=== PATIENT | male | born 1940 | race Caucasian/White ===

== ENCOUNTER 2016-07-18 11:45 | Emergency (ER) | payer MEDICARE, OTHER | END 2016-07-18 14:53 | disposition home or self-care (01) | DX: J18.9 Pneumonia, unspecified organism (principal); R41.0 Disorientation, unspecified; R40.0 Somnolence; E78.00 Pure hypercholesterolemia, unspecified; I25.2 Old myocardial infarction; Z86.718 Personal history of other venous thrombosis and embolism; Z86.711 Personal history of pulmonary embolism; Z79.82 Long term (current) use of aspirin; Z87.891 Personal history of nicotine dependence; Z86.73 Personal history of transient ischemic attack (TIA), and cerebral infarction without residual deficits | CPT/HCPCS: 36415; 70450; 71020; 80053; 81003; 82140; 83605; 83690; 83735; 83880; 85025; 93005; 93010; 99283; 99284; G0480 ==

== ENCOUNTER 2016-08-06 07:48 | Outpatient (CLI) | payer MEDICARE, OTHER | END 2016-08-06 07:49 | disposition home or self-care (01) | DX: J43.9 Emphysema, unspecified (principal); J84.10 Pulmonary fibrosis, unspecified ==

== ENCOUNTER 2016-12-14 09:32 | Emergency (ER) | payer MEDICARE, OTHER ==
--- NOTE | 2016-12-14 10:16 | ED Physician Documentation ---
History of Present Illness - Stated complaint Stated Complaint: POST OP EYE SURGERY - Chief complaint Chief Complaint: General - History obtained from History obtained from: Patient, Family - History of Present Illness Timing: Prior to arrival - Additonal information Additional information: This patient is a pleasant elderly male with a history of dementia and also history of a benign brain tumor who presents with a complaint of mild headache following a recent injury several days ago where he is walking with a sickle nearly fell. He is unable to write himself because of the implement in his hands and subsequently hit his face against a rock. There is no loss of consciousness he has no neck, chest, or abdominal pain. He also had an episode yesterday where he was seen to have shaking. The shaking was short-lived and was not associated with any postictal period. He was awake during it which probably rules outA seizure. The patient is accompanied by family who is a little bit more concerned and the patient and wants an evaluation done. He is also status post blepharoplasty in the past and has no problems with his previous procedure. Review of systems: For complete review of systems see history of present illness otherwise all other systems have been reviewed and are negative Review of Systems Ten Systems: 10 systems reviewed and negative Constitutional: reports: Chills. denies: Fever PD PAST MEDICAL HISTORY - Past Medical History Past Medical History: Yes Cardiovascular: High cholesterol, Deep vein thrombosis, Pulmonary embolism, [place] Respiratory: None Neuro: CVA, Seizure disorder Endocrine/Autoimmune: None - Past Surgical History Past Surgical History: Yes General: Colonoscopy Ortho: Knee replacement Cardiovascular: Coronary stent, AAA Neuro: COLOR MAKER shunt - Present Medications Home Medications: Ambulatory Orders Medication Instructions Recorded Confirmed Aspirin 325 mg PO DAILY 08/20/15 07/18/16 Atenolol 50 mg PO DAILY 08/20/15 07/18/16 Fluticasone/Salmeterol [Advair 2 puffs INH DAILY 08/20/15 07/18/16 100-50 Diskus] Levothyroxine [Synthroid] 75 mcg PO DAILY 08/20/15 07/18/16 Loratadine [Claritin] 10 mg PO DAILY 08/20/15 07/18/16 Simvastatin 20 mg PO DAILY 08/20/15 07/18/16 levETIRAcetam [Keppra] 1,000 mg PO BID 08/20/15 07/18/16 Albuterol Sulfate [Proair Hfa 2 puffs IH QID #1 hfa.aer.ad 07/18/16 Inhaler] Azithromycin [Zithromax] 250 mg PO DAILY #6 tablet 07/18/16 Dexamethasone [Decadron] 4 mg PO DAILY #5 tablet 07/18/16 Nitroglycerin [Nitrostat] 0.4 mg [id number] TITR PRN 07/18/16 07/18/16 - Allergies Allergies/Adverse Reactions: Allergies Allergy/AdvReac Type Severity Reaction Status Date / Time carbamazepine AdvReac Unknown Verified 07/18/16 11:51 iodine AdvReac Unknown Verified 07/18/16 11:51 shellfish derived AdvReac Unknown Verified 07/18/16 11:51 - Social History Does the pt smoke?: No Smoking Status: Former smoker Does the pt drink ETOH?: No Does the pt have substance abuse?: No - Immunizations Immunizations are current?: Yes PD ED PE NORMAL - Vitals Vital signs reviewed: Yes - General General: Alert and oriented X 3, No acute distress - HEENT HEENT: PERRL - Neck Neck: Supple, no meningeal sign - Cardiac Cardiac: RRR, No murmur - Respiratory Respiratory: Clear bilaterally - Abdomen Abdomen: Normal bowel sounds, Soft, Non tender, Non distended - Derm Derm: Warm and dry - Extremities Extremities: No deformity - Neuro Neuro: Alert and oriented X 3 - Psych Psych: Normal mood, Normal affect Results - Vitals Vitals: Vital Signs - 24 hr 12/14/16 09:47 Temperature 36.8 C Heart Rate 68 Respiratory 17 Rate Blood Pressure 142/91 H O2 Saturation 96 Oxygen O2 Source Room air - Labs Labs: Laboratory Tests 12/14/16 10:10 Urine Color YELLOW Urine Clarity CLEAR Urine pH 6.0 Ur Specific Mccamey 1.015 Urine Protein NEGATIVE Urine Glucose (UA) NEGATIVE Urine Ketones NEGATIVE Urine Occult Blood NEGATIVE Urine Nitrite NEGATIVE Urine Bilirubin NEGATIVE Urine Urobilinogen 0.2 (NORMAL) Ur Leukocyte Esterase NEGATIVE Ur Microscopic Review NOT INDICATED Urine Culture Comments NOT INDICATED PD MEDICAL DECISION MAKING - ED course ED course: This patient is a 76-year-old man who presents with a concern for a closed head injury which happened a couple days ago. He had an episode of shaking yesterday and I guess family was concerned given the fact that he had a closed head injury recently where the patient really has no complaints here and I do not see any evidence of any physical trauma on examination. His neck is supple nontender he had some shoulder pain but on examination he demonstrates normal range of motion of his shoulders palpation of his entire body is unremarkable. He also napHad an episode of shaking yesterday and on examination I see no evidence of any infection nor do I hear any concerns for infection clinically however I did decide to do urine to make sure he does not have a urinary tract infection. The results of the CT scan of his head are unremarkable and the patient's urine is negative for infection at this point he continues to look well and I think he is able to be discharged home in improved condition.I see no evidence of any infection nor do I hear any concerns for infection clinically however I did decide to do urine to make sure he does not have a urinary tract infection. The results of the CT scan of his head are unremarkable and the patient's urine is negative for infection at this point he continues to look well and I think he is able to be discharged home in improved condition. Disposition to home Clinical impression: 1. Close head injury mild 2. Shaking without evidence of infection clinically or by testingHad an episode of shaking yesterday and on examination Disposition to home Clinical impression: 1. Close head injury mild 2. Shaking without evidence of infection clinically or by testing
[2016-12-14 10:39] LABS: BILIRUBIN,URINE NEGATIVE (NEGATIVE)
[2016-12-14 10:42] LABS: UA CHARGE (STRIP ONLY) YES; UR CULTURE IF IND NOT INDICATED
--- NOTE | 2016-12-14 11:08 | CT Preliminary Report ---
Exam: CT Head W/O IMPRESSION: No acute abnormality or significant change, stable from 07/18/2016. [facility] SITE ID: [id number]
--- NOTE | 2016-12-14 11:10 | CT Report ---
EXAM: CT HEAD EXAM DATE: 12/14/2016 10:47 AM. CLINICAL HISTORY: Fall with closed head injury. COMPARISON: 07/18/2016. TECHNIQUE: Multiaxial CT images were obtained from the foramen magnum to the vertex. IV contrast: Non e. Reformats: Coronal. In accordance with CT protocol optimization, one or more of the following dose reduction techniques w ere utilized for this exam: automated exposure control, adjustment of mA and/or KV based on patient s ize, or use of iterative reconstructive technique. FINDINGS: No CT evidence for acute intracranial hemorrhage, recent displaced fracture or other acute abnormalit y. INTEGRATION DIRECTOR shunt is in place from a right frontal approach, stable ventricular contours, no evidence for acut e shunt malfunction. Again seen are findings of chronic surgery and brain injury anteriorly on the left. No acute sinus or mastoid disease. IMPRESSION: No acute abnormality or significant change, stable from 07/18/2016. [facility] Referring Provider Line: [phone] SITE ID: [id number]
[2016-12-14 12:22] VITALS: BP 142/84
== END 2016-12-14 13:03 | disposition home or self-care (01) ==
LOC: ED 09:32
DX: S09.90XA Unspecified injury of head, initial encounter (principal); W18.30XA Fall on same level, unspecified, initial encounter; W22.09XA Striking against other stationary object, initial encounter; Y93.01 Activity, walking, marching and hiking; R25.8 Other abnormal involuntary movements; F03.90 Unspecified dementia, unspecified severity, without behavioral disturbance, psychotic disturbance, mood disturbance, and anxiety; I25.2 Old myocardial infarction; Z86.718 Personal history of other venous thrombosis and embolism; Z86.711 Personal history of pulmonary embolism; Z96.659 Presence of unspecified artificial knee joint; Z95.5 Presence of coronary angioplasty implant and graft; Z79.82 Long term (current) use of aspirin; Z87.891 Personal history of nicotine dependence; Z98.890 Other specified postprocedural states
CPT/HCPCS: 70450; 81001; 81003; 87086; 99283

== ENCOUNTER 2017-05-14 14:34 | Outpatient (CLI) | payer MEDICARE, OTHER ==
[2017-05-14 12:51] LABS: BASOPHILS % (AUTO) 0.6 %; EOSINOPHILS # (AUTO) 0.1 10^3/uL (0.0-0.7); EOSINOPHILS % (AUTO) 2.7 %; HCT - HEMATOCRIT 36.4 % (42.0-52.0); HGB - HEMOGLOBIN 12.8 g/dL (14.0-18.0); LYMPHOCYTES % (AUTO) 20.6 %; MEAN CORPUSCULAR HEMOGLOBIN 31.8 pg (27.0-31.0); MEAN CORPUSCULAR HGB CONC 35.1 g/dL (32.0-36.0); MEAN CORPUSCULAR VOLUME 90.7 fL (80.0-94.0); MEAN PLATELET VOLUME 7.5 fL (7.4-11.4); MONOCYTES # (AUTO) 0.5 10^3/uL (0.0-1.0); MONOCYTES % (AUTO) 10.8 %; NEUTROPHILS # (AUTO) 3.2 10^3/uL (1.5-6.6); NEUTROPHILS % (AUTO) 65.3 %; NUCLEATED RED BLOOD CELLS AUTO 0.2 /100WBC; RED BLOOD COUNT 4.01 10^6/uL (4.70-6.10); RED CELL DISTRIBUTION WIDTH 14.5 % (12.0-15.0); UNCORRECTED WHITE BLOOD COUNT 4.8 x10^3/uL; WHITE BLOOD COUNT 4.8 x10^3/uL (4.8-10.8)
[2017-05-14 13:12] LABS: ALBUMIN/GLOBULIN RATIO 1.4 (1.0-2.2); BUN - BLOOD UREA NITROGEN 25 mg/dL (6-20); CALCIUM 9.5 mg/dL (8.5-10.3); CARBON DIOXIDE - CO2 27 mmol/L (21-32); CHLORIDE 107 mmol/L (101-111); CHOL/HDL RATIO 4.5 (<5.0); CHOLESTEROL 199 mg/dL; GFR - MDRD 72 (>89); GLUCOSE 88 mg/dL (70-100); HDL CHOLESTEROL 44 mg/dL; LDL/HDL RATIO 3.2 (<3.6); POTASSIUM 3.8 mmol/L (3.5-5.0); SODIUM 140 mmol/L (135-145); TOTAL PROTEIN 7.4 g/dL (6.7-8.2); TRIGLYCERIDES 79 mg/dL; VLDL CHOLESTEROL 16 mg/dL
== END 2017-05-14 14:35 | disposition home or self-care (01) ==
LOC: LAB.WCP 14:34
PROVIDERS: ATTEND Family Medicine
DX: I10 Essential (primary) hypertension (principal); Z12.5 Encounter for screening for malignant neoplasm of prostate; E78.5 Hyperlipidemia, unspecified; E03.9 Hypothyroidism, unspecified
CPT/HCPCS: 36415; 80053; 80061; 84443; 85025; G0103; 84153

== ENCOUNTER 2017-05-30 14:59 | Outpatient (CLI) | payer MEDICARE, OTHER ==
[~2017-05-30 14:59] MED LIST: GADOBUTROL 7.5 MMOL/7.5 ML VIAL ONE
[2017-05-30] MEDS ORDERED: GADOBUTROL 7.5 MMOL/7.5 ML VIAL IVP ONE (16:11)
--- NOTE | 2017-05-31 09:33 | MRI Preliminary Report ---
Exam: MRI BRAIN W/WO Impressions: 1. No acute or subacute ischemic change. 2. Progressive white matter disease since prior MRI brain 07/07/2007, most likely related to chronic small vessel ischemic disease. However, progressive white matter change seen within the left frontal lobe, near the operative site may represent evolution of encephalomalacia related to prior surgery, t herapy. Postcontrast imaging negative, no evidence for recurrent mass. 3. Slight progression of ventricular dilation since 2007, ventricles not overtly dilated. Again seen shunt catheter in place as described, tip at septum pellucidum. Slight progressive ventricular enlarg ement likely due to progressive white matter volume loss, potentially senescent changes. [facility] SITE ID: [id number]
--- NOTE | 2017-05-31 09:36 | MRI Report ---
EXAM: MRI BRAIN WITHOUT AND WITH CONTRAST EXAM DATE: 05/30/2017 04:26 PM. CLINICAL HISTORY: Seizure disorder, meningioma. COMPARISON: Prior CT head 12/14/2016, 07/18/2016; prior MRI brain exams 07/07/2007, 11/25/2006. TECHNIQUE: Multiplanar, multisequence T1-weighted and fluid-sensitive MR sequences of the brain were performed. Sequences optimized for routine evaluation. Other: None. IV Contrast: 6.5 cc Gadavist. Findings: Relevant images are indicated (image number, series number). Compared with MRI brain 07/07/2007: No interval acute or subacute ischemic change in the brain. Gradient echo imaging demonstrates no sig nificant hemosiderin deposition in the brain. Patient status post left convexity craniotomy. There is a right frontal parietal approach shunt catheter tip abuts the septum pellucidum. There is no interv al hemorrhage, new mass, or midline shift. Basal cisterns, bilateral IACs, bilateral Meckel's caves n egative. Orbital contents negative, bilateral globes demonstrate patient status post bilateral lens s urgery. Prominence of the posterior margins of the globes prominently hypointense, but unchanged in t he interval. No evidence for retinal detachment. Normal expected vascular flow voids of the major arteries and veins. Comparison of axial flair imaging demonstrates progressive white matter disease involving the left fr ontal opercula. Maximum transverse dimension of the frontal horns 4.4 cm, previously 4.2 cm. Again se en is surrounding periventricular white matter disease though progressive in the interval. Stable enc ephalomalacia involves anterior left temporal lobe with central enlargement of the left temporal horn . The pituitary, infundibulum are negative. Midbrain demonstrates mild atrophy. Craniocervical juncti on unremarkable. Extraocular muscles, optic nerves, orbital apex and optic chiasm negative. Postcontrast imaging demonstrates no abnormal enhancement of the brain, meninges. There are no suspic ious marrow lesions. Impressions: 1. No acute or subacute ischemic change. 2. Progressive white matter disease since prior MRI brain 07/07/2007, most likely related to chronic small vessel ischemic disease. However, progressive white matter change seen within the left frontal lobe, near the operative site may represent evolution of encephalomalacia related to prior surgery, t herapy. Postcontrast imaging negative, no evidence for recurrent mass. 3. Slight progression of ventricular dilation since 2007, ventricles not overtly dilated. Again seen shunt catheter in place as described, tip at septum pellucidum. Slight progressive ventricular enlarg ement likely due to progressive white matter volume loss, potentially senescent changes. [facility] Referring Provider Line: [phone] SITE ID: [id number]
== END 2017-05-30 15:00 | disposition home or self-care (01) ==
LOC: DI 14:59
PROVIDERS: ATTEND Family Medicine
DX: R56.9 Unspecified convulsions (principal); R90.82 White matter disease, unspecified
CPT/HCPCS: 70553; A9585

== ENCOUNTER 2017-06-12 14:57 | Outpatient (CLI) | payer MEDICARE, OTHER ==
[2017-06-12 14:16] LABS: ALBUMIN 4.6 g/dL (3.2-5.5); ALBUMIN/GLOBULIN RATIO 1.5 (1.0-2.2); BILIRUBIN,TOTAL 0.9 mg/dL (0.2-1.0); CALCIUM 9.8 mg/dL (8.5-10.3); TOTAL PROTEIN 7.7 g/dL (6.7-8.2)
== END 2017-06-12 14:58 | disposition home or self-care (01) ==
LOC: LAB.WCP 14:57
PROVIDERS: ATTEND Family Medicine
DX: R74.8 Abnormal levels of other serum enzymes (principal)
CPT/HCPCS: 36415; 80053

== ENCOUNTER 2017-06-22 12:49 | Outpatient (CLI) | payer MEDICARE, OTHER ==
--- NOTE | 2017-06-23 00:12 | Ultrasound Report ---
EXAM: ABDOMEN ULTRASOUND LIMITED, RUQ EXAM DATE: 06/22/2017 02:04 PM. CLINICAL HISTORY: Elevated liver enzymes. COMPARISON: 03/24/2013. TECHNIQUE: Real-time scanning was performed with static images obtained. FINDINGS: Liver: Mildly heterogeneous liver parenchyma. 2.6 cm simple left liver cyst. No mass or intrahepatic bile duct dilation. Right liver measures 14.2 cm. Main portal vein flow: Hepatopetal. Gallbladder: Multiple gallstones without gallbladder wall thickening, pericholecystic fluid or sonogr aphic Mendoza's sign. Biliary System: CBD measures 4.6 mm. No intrahepatic or extrahepatic ductal dilatation. Right kidney: Cortex is mildly echogenic. No hydronephrosis. Length measures 10.6 cm. Anechoic 3 x 2. 7 x 2.6 cm cystic structure abutting the superior margin of the right kidney. Other: None. IMPRESSION: 1. Gallstones. No sonographic findings concerning for acute cholecystitis. 2. Mildly heterogeneous liver. No mass. Simple small left liver cyst. Probable fatty liver. Normal co mmon bile duct. [facility] Referring Provider Line: [phone] SITE ID: [id number]
== END 2017-06-22 12:50 | disposition home or self-care (01) ==
LOC: DI 12:49
PROVIDERS: ATTEND Family Medicine
DX: R74.8 Abnormal levels of other serum enzymes (principal); K80.80 Other cholelithiasis without obstruction; K76.89 Other specified diseases of liver
CPT/HCPCS: 76705

== ENCOUNTER 2017-11-08 07:08 | Outpatient (CLI) | payer MEDICARE, OTHER ==
[2017-11-08 07:30] LABS: BASOPHILS % (AUTO) 0.7 %; EOSINOPHILS # (AUTO) 0.1 10^3/uL (0.0-0.7); EOSINOPHILS % (AUTO) 3.3 %; HGB - HEMOGLOBIN 13.2 g/dL (14.0-18.0); LYMPHOCYTES % (AUTO) 23.1 %; MEAN CORPUSCULAR HGB CONC 34.6 g/dL (32.0-36.0); MEAN CORPUSCULAR VOLUME 92.5 fL (80.0-94.0); MEAN PLATELET VOLUME 6.9 fL (7.4-11.4); MONOCYTES # (AUTO) 0.6 10^3/uL (0.0-1.0); MONOCYTES % (AUTO) 14.3 %; NEUTROPHILS # (AUTO) 2.6 10^3/uL (1.5-6.6); NEUTROPHILS % (AUTO) 58.6 %; PLT - PLATELET COUNT 122 10^3/uL (130-450); RED BLOOD COUNT 4.12 10^6/uL (4.70-6.10); RED CELL DISTRIBUTION WIDTH 14.3 % (12.0-15.0); WHITE BLOOD COUNT 4.5 x10^3/uL (4.8-10.8)
[2017-11-08 07:47] LABS: ALBUMIN 4.3 g/dL (3.2-5.5); ALBUMIN/GLOBULIN RATIO 1.3 (1.0-2.2); ALKALINE PHOSPHATASE 49 IU/L (42-121); ALT ALANINE AMINOTRANSFERASE 60 IU/L (10-60); AST ASPARTATE AMINOTRANSFERASE 51 IU/L (10-42); BILIRUBIN,TOTAL 1.2 mg/dL (0.2-1.0); BUN - BLOOD UREA NITROGEN 24 mg/dL (6-20); CALCIUM 9.4 mg/dL (8.5-10.3); CARBON DIOXIDE - CO2 26 mmol/L (21-32); CHLORIDE 104 mmol/L (101-111); CHOL/HDL RATIO 4.7 (<5.0); CHOLESTEROL 198 mg/dL; CREATININE 1.1 mg/dL (0.6-1.2); GFR - MDRD 65 (>89); GLUCOSE 97 mg/dL (70-100); HDL CHOLESTEROL 42 mg/dL; LDL CHOLESTEROL,CALCULATED 138 mg/dL; LDL/HDL RATIO 3.3 (<3.6); SODIUM 137 mmol/L (135-145); TOTAL PROTEIN 7.6 g/dL (6.7-8.2); VLDL CHOLESTEROL 18 mg/dL
[2017-11-08 08:12] LABS: THYROID STIMULATING HORMONE 3.3 uIU/mL (0.34-5.60)
== END 2017-11-08 07:09 | disposition home or self-care (01) ==
LOC: LAB 07:08
PROVIDERS: ATTEND Family Medicine
DX: E78.5 Hyperlipidemia, unspecified (principal); R41.3 Other amnesia; E03.9 Hypothyroidism, unspecified; I10 Essential (primary) hypertension
CPT/HCPCS: 36415; 80053; 80061; 82607; 83721; 84443; 85025

== ENCOUNTER 2018-04-14 08:32 | Outpatient (CLI) | payer MEDICARE, OTHER ==
[2018-04-17 15:31] LABS: ALDOLASE 14.9 U/L (< OR = 8.1)
== END 2018-04-14 23:59 ==
LOC: LAB.WCP 08:32
PROVIDERS: ATTEND Psychiatry & Neurology Neurology
DX: R41.89 Other symptoms and signs involving cognitive functions and awareness (principal); R29.898 Other symptoms and signs involving the musculoskeletal system
CPT/HCPCS: 36415; 82085; 82550; 82607; 83921; 85651

== ENCOUNTER 2018-06-01 09:08 | Outpatient (CLI) | payer MEDICARE, OTHER ==
[2018-06-01 09:40] LABS: CALCIUM 10.1 mg/dL (8.5-10.3); CREATININE 1.1 mg/dL (0.6-1.2)
[2018-06-01] MEDS ORDERED: IOVERSOL 320 100 ML VIAL IVP ONE (11:49)
--- NOTE | 2018-06-02 10:13 | CT Report ---
Reason: HYPOXIA,COPD Procedure Date: 06/01/2018 Accession Number: [id number] / [id number] Procedure: CT - Chest W/ CPT Code: FULL RESULT: EXAM: CT CHEST EXAM DATE: 06/01/2018 11:34 AM. CLINICAL HISTORY: Hypoxia, COPD. Short of breath. Cough. History of renal disease/failure, multiple myeloma. COMPARISONS: Chest CT without contrast 08/06/2016. TECHNIQUE: Routine helical CT imaging was performed through the chest. IV contrast: 100 cc Isovue 320. Reconstructions: Coronal and sagittal. In accordance with CT protocol optimization, one or more of the following dose reduction techniques were utilized for this exam: automated exposure control, adjustment of mA and/or KV based on patient size, or use of iterative reconstructive technique. FINDINGS: Lungs/Pleura: Moderate pulmonary emphysematous changes redemonstrated. Calcified pleural plaques redemonstrated, compatible with a history of asbestos exposure. A pattern consistent with mild peripheral fibrosis predominantly within the lower lobes is mildly progressed. No focal consolidation or definite acute infiltrate. No suspicious pulmonary nodules. No pleural effusion. No pneumothorax. Mediastinum: Mild AP window adenopathy appears mildly increased, short axis 1.1 cm, previously 0.9 cm. Borderline right hilar adenopathy may be mildly increased but comparison with the prior noncontrast exam is limited. No other enlarged lymph nodes demonstrated. Calcified mediastinal and right hilar nodules are redemonstrated and are consistent with old granulomatous disease. Cardiac enlargement appears slightly increased. No pericardial effusion. Extensive coronary artery calcifications redemonstrated. Bones: Degenerative disease of the spine. No definite acute abnormality. Visualized Abdomen: Stable small hepatic hypodensities, likely benign findings such as cysts. Stable mild splenomegaly. No definite acute abnormality. Other: Ventriculoperitoneal shunt catheter again demonstrated within the right anterior chest wall, distal portion not included. IMPRESSION: 1. Pattern consistent with mild pulmonary fibrosis is mildly progressed. 2. No definite acute pulmonary abnormality. 3. Pulmonary emphysema redemonstrated. 4. Calcified pleural plaques redemonstrated, compatible with a history of asbestos exposure. 5. Mild mediastinal adenopathy is mildly increased. Borderline right hilar adenopathy may be increased. 6. Cardiomegaly, slightly increased. 7. Mild splenomegaly redemonstrated. [facility]
== END 2018-06-01 09:09 | disposition home or self-care (01) ==
LOC: LAB 09:08
PROVIDERS: ATTEND Family Medicine
DX: I10 Essential (primary) hypertension (principal); R09.02 Hypoxemia; J44.9 Chronic obstructive pulmonary disease, unspecified
CPT/HCPCS: 36415; 71260; 80048; 94010; Q9967

== ENCOUNTER 2018-12-25 07:50 | Outpatient (CLI) | payer MEDICARE, OTHER ==
[2018-12-25 12:55] LABS: BASOPHILS % (AUTO) 0.6 %; EOSINOPHILS # (AUTO) 0.2 10^3/uL (0.0-0.7); EOSINOPHILS % (AUTO) 3.7 %; HGB - HEMOGLOBIN 11.5 g/dL (14.0-18.0); LYMPHOCYTES # (AUTO) 1.1 10^3/uL (1.5-3.5); MEAN CORPUSCULAR HEMOGLOBIN 30.7 pg (27.0-31.0); MEAN CORPUSCULAR HGB CONC 32.6 g/dL (32.0-36.0); MEAN CORPUSCULAR VOLUME 94.4 fL (80.0-94.0); MEAN PLATELET VOLUME 9.6 fL (7.4-11.4); MONOCYTES # (AUTO) 0.6 10^3/uL (0.0-1.0); MONOCYTES % (AUTO) 13.4 %; NEUTROPHILS # (AUTO) 2.7 10^3/uL (1.5-6.6); NEUTROPHILS % (AUTO) 57.7 %; PLT - PLATELET COUNT 125 10^3/uL (130-450); RED BLOOD COUNT 3.74 10^6/uL (4.70-6.10); RED CELL DISTRIBUTION WIDTH 14.1 % (12.0-15.0); WHITE BLOOD COUNT 4.6 x10^3/uL (4.8-10.8)
[2018-12-25 13:17] LABS: ALBUMIN 4.3 g/dL (3.2-5.5); ALBUMIN/GLOBULIN RATIO 1.4 (1.0-2.2); ALKALINE PHOSPHATASE 48 IU/L (42-121); ALT ALANINE AMINOTRANSFERASE 62 IU/L (10-60); AST ASPARTATE AMINOTRANSFERASE 50 IU/L (10-42); BILIRUBIN,TOTAL 0.9 mg/dL (0.2-1.0); BUN - BLOOD UREA NITROGEN 28 mg/dL (6-20); CALCIUM 9.9 mg/dL (8.5-10.3); CARBON DIOXIDE - CO2 26 mmol/L (21-32); CHLORIDE 106 mmol/L (101-111); CHOL/HDL RATIO 5.1 (<5.0); CHOLESTEROL 202 mg/dL; CREATININE 1.1 mg/dL (0.6-1.2); GFR - MDRD 65 (>89); GLUCOSE 97 mg/dL (70-100); HDL CHOLESTEROL 40 mg/dL; LDL CHOLESTEROL,CALCULATED 148 mg/dL; LDL/HDL RATIO 3.7 (<3.6); SODIUM 142 mmol/L (135-145); TOTAL PROTEIN 7.4 g/dL (6.7-8.2); VLDL CHOLESTEROL 14 mg/dL
== END 2018-12-25 07:51 | disposition home or self-care (01) ==
LOC: LAB.WCP 07:50
PROVIDERS: ATTEND Family Medicine
DX: I10 Essential (primary) hypertension (principal); E03.9 Hypothyroidism, unspecified; E78.5 Hyperlipidemia, unspecified; R74.8 Abnormal levels of other serum enzymes
CPT/HCPCS: 36415; 80053; 80061; 83721; 84443; 85025

== ENCOUNTER 2019-01-13 08:28 | Outpatient (CLI) | payer MEDICARE, OTHER ==
--- NOTE | 2019-01-13 15:57 | Ultrasound Report ---
Reason: GALLSTONES Procedure Date: 01/13/2019 Accession Number: [id number] / [id number] Procedure: US - Abdomen Limited CPT Code: FULL RESULT: EXAM: ABDOMEN ULTRASOUND LIMITED, RUQ EXAM DATE: 01/13/2019 08:46 AM. CLINICAL HISTORY: Follow-up gallbladder stones. COMPARISON: ABDOMEN LIMITED 06/22/2017 1:33 PM. TECHNIQUE: Real-time scanning was performed with static images obtained. FINDINGS: Liver: Overall normal in echotexture. Left hepatic cyst measures 4 x 4 x 7 mm. No solid masses or enlargement. 14.2 cm. Main portal vein flow: Hepatopetal. Gallbladder: Several small layering gallbladder stones present about the neck causing no obstruction. No wall thickening or sonographic Mendoza sign. Individual stones measure up to approximately 6 mm maximally. Biliary System: CBD measures 4 mm. No intrahepatic or extrahepatic ductal dilatation. Other: A probable exophytic right upper pole renal cyst measures up to 2.9 cm. No ascites. IMPRESSION: 1. Cholelithiasis without evidence of cholecystitis. 2. Hepatic and right renal cysts. [facility]
== END 2019-01-13 08:29 | disposition home or self-care (01) ==
LOC: DI 08:28
PROVIDERS: ATTEND Family Medicine
DX: K80.20 Calculus of gallbladder without cholecystitis without obstruction (principal); K76.89 Other specified diseases of liver; N28.1 Cyst of kidney, acquired
CPT/HCPCS: 76705

== ENCOUNTER 2019-03-11 07:34 | Day surgery (SDC) | payer MEDICARE, OTHER ==
[2019-03-11] MEDS ORDERED: LACTATED RINGERS 1,000 ML IV ONE (08:05)
[2019-03-11 11:53] VITALS: BP 111/55
== END 2019-03-11 07:35 | disposition home or self-care (01) ==
LOC: SDS 07:34
PROVIDERS: ATTEND Surgery
PROC: 0DJD8ZZ Inspection of Lower Intestinal Tract, Via Natural or Artificial Opening Endoscopic (ICD-10-PCS; principal; 2019-03-11 09:15)
DX: Z12.11 Encounter for screening for malignant neoplasm of colon (principal); Z86.010 Personal history of colon polyps; K57.30 Diverticulosis of large intestine without perforation or abscess without bleeding; K80.20 Calculus of gallbladder without cholecystitis without obstruction; R09.02 Hypoxemia; I25.10 Atherosclerotic heart disease of native coronary artery without angina pectoris; I10 Essential (primary) hypertension; J44.9 Chronic obstructive pulmonary disease, unspecified; I25.2 Old myocardial infarction
CPT/HCPCS: G0105; J7120

== ENCOUNTER 2019-03-19 07:32 | Outpatient (CLI) | payer MEDICARE, OTHER ==
[2019-03-19 08:41] LABS: HB2 TOTAL 11.7 g/dL; HEMOGLOBIN A1C 0.42 g/dL; HEMOGLOBIN A1C % 5.4 % (4.6-6.2)
[2019-03-23 23:41] LABS: METHYLMALONIC ACID 157 nmol/L (87-318)
[2019-03-24 20:02] LABS: ALBUMIN 4.3 g/dL (3.8-4.8); ALPHA 1 GLOBULIN 0.5 g/dL (0.2-0.3); ALPHA 2 GLOBULIN 0.8 g/dL (0.5-0.9); BETA 1 GLOBULIN 0.4 g/dL (0.4-0.6); BETA 2 GLOBULIN 0.4 g/dL (0.2-0.5); GAMMA GLOBULIN 1.2 g/dL (0.8-1.7)
== END 2019-03-19 07:33 | disposition home or self-care (01) ==
LOC: LAB 07:32
PROVIDERS: ATTEND Psychiatry & Neurology Neurology
DX: G70.9 Myoneural disorder, unspecified (principal); R53.1 Weakness
CPT/HCPCS: 36415; 81599; 82085; 82550; 82570; 82607; 82746; 83036; 83883; 83921; 84155; 84156; 84165; 84166; 86334; 86790

== ENCOUNTER 2019-03-22 09:23 | Outpatient (CLI) | payer MEDICARE, OTHER | END 2019-03-22 09:24 | disposition home or self-care (01) | LOC: RT 09:23 | PROVIDERS: ATTEND Psychiatry & Neurology Neurology | DX: G70.9 Myoneural disorder, unspecified (principal); R53.1 Weakness | CPT/HCPCS: 94010; 94150 ==

== ENCOUNTER 2019-03-27 10:22 | Outpatient (CLI) | payer MEDICARE, OTHER ==
--- NOTE | 2019-03-28 00:03 | MRI Report ---
Reason: NEUROMUSCULAR DISORDER, GENERALIZED WEAKNESS Procedure Date: 03/27/2019 Accession Number: [id number] / [id number] Procedure: MRI - Cervical Spine W/O CPT Code: FULL RESULT: EXAM: MRI CERVICAL SPINE WITHOUT CONTRAST EXAM DATE: 03/27/2019 11:18 AM. CLINICAL HISTORY: Neck pain, frequent falls. COMPARISONS: None. TECHNIQUE: Multiplanar, multisequence T1-weighted and fluid-sensitive sequences of the cervical spine without contrast. Other: None. FINDINGS: Neurologic Structures: The visualized posterior fossa structures are unremarkable. No signal abnormality in the visualized spinal cord. Alignment: Retrolisthesis at C3-C4, C4-C5, and C5-C6 measure 1-2 mm. Grade 1 anterolisthesis at T1-T2 is also present measuring 1-2 mm. Bone Marrow: No abnormal bone marrow edema is identified. However, small chronic Schmorl's nodes are noted at C3-C4, C4-C5, C5-C6, and C6-C7. Interspace Levels/Facets: C1-C2: There is no craniocervical stenosis. C2-C3: Left-sided facet arthropathy is present without spinal canal or foraminal stenosis. C3-C4: A posterior disk osteophyte complex results in mild spinal canal stenosis without impingement of the spinal cord. There is moderate left foraminal narrowing due to uncovertebral hypertrophy and facet arthropathy. Mild right foraminal narrowing is present due to uncovertebral hypertrophy. C4-C5: A posterior disk osteophyte complex results in mild spinal canal stenosis without impingement of the spinal cord. There is moderate bilateral foraminal narrowing due to disk height loss and uncovertebral hypertrophy. C5-C6: A posterior disk osteophyte complex results in mild spinal canal stenosis without impingement of the spinal cord. There is moderate bilateral foraminal narrowing due to disk height loss and uncovertebral hypertrophy. C6-C7: A minimal posterior disk osteophyte complex is present without spinal canal stenosis. There is moderate left and mild right foraminal narrowing due to uncovertebral hypertrophy. C7-T1: Unremarkable. Musculature: There is moderate diffuse fatty atrophy of the posterior paraspinal muscles without intramuscular edema. Other: The paravertebral and prevertebral soft tissues are normal. IMPRESSION: 1. Normal cervical spinal cord signal intensity. 2. No abnormal bone marrow edema. 3. Moderate multilevel degenerative changes are present but no high-grade spinal canal stenosis or spinal cord impingement is seen. [facility]
== END 2019-03-27 10:23 | disposition home or self-care (01) ==
LOC: DI 10:22
PROVIDERS: ATTEND Psychiatry & Neurology Neurology
DX: M47.812 Spondylosis without myelopathy or radiculopathy, cervical region (principal); M43.12 Spondylolisthesis, cervical region; M50.321 Other cervical disc degeneration at C4-C5 level; M48.02 Spinal stenosis, cervical region
CPT/HCPCS: 72141

== ENCOUNTER 2019-05-21 08:00 | Outpatient (CLI) | payer MEDICARE, OTHER ==
[2019-05-21 12:58] LABS: BASOPHILS % (AUTO) 0.5 %; EOSINOPHILS # (AUTO) 0.1 10^3/uL (0.0-0.7); EOSINOPHILS % (AUTO) 3.4 %; HGB - HEMOGLOBIN 11.1 g/dL (14.0-18.0); LYMPHOCYTES # (AUTO) 0.9 10^3/uL (1.5-3.5); LYMPHOCYTES % (AUTO) 22.4 %; MEAN CORPUSCULAR HEMOGLOBIN 30.3 pg (27.0-31.0); MEAN CORPUSCULAR HGB CONC 32.7 g/dL (32.0-36.0); MEAN CORPUSCULAR VOLUME 92.6 fL (80.0-94.0); MEAN PLATELET VOLUME 9.3 fL (7.4-11.4); MONOCYTES # (AUTO) 0.5 10^3/uL (0.0-1.0); MONOCYTES % (AUTO) 12.6 %; NEUTROPHILS # (AUTO) 2.4 10^3/uL (1.5-6.6); NEUTROPHILS % (AUTO) 60.6 %; PLT - PLATELET COUNT 150 10^3/uL (130-450); RED BLOOD COUNT 3.66 10^6/uL (4.70-6.10); RED CELL DISTRIBUTION WIDTH 14.2 % (12.0-15.0); WHITE BLOOD COUNT 3.9 x10^3/uL (4.8-10.8)
[2019-05-21 13:33] LABS: ALBUMIN 4.4 g/dL (3.2-5.5); ALBUMIN/GLOBULIN RATIO 1.3 (1.0-2.2); ALKALINE PHOSPHATASE 47 IU/L (42-121); ALT ALANINE AMINOTRANSFERASE 47 IU/L (10-60); AST ASPARTATE AMINOTRANSFERASE 43 IU/L (10-42); BUN - BLOOD UREA NITROGEN 26 mg/dL (6-20); CALCIUM 9.7 mg/dL (8.5-10.3); CARBON DIOXIDE - CO2 25 mmol/L (21-32); CHLORIDE 108 mmol/L (101-111); CHOL/HDL RATIO 4.2 (<5.0); CHOLESTEROL 169 mg/dL; GFR - MDRD 72 (>89); GLUCOSE 100 mg/dL (70-100); HDL CHOLESTEROL 40 mg/dL; LDL CHOLESTEROL,CALCULATED 113 mg/dL; LDL/HDL RATIO 2.8 (<3.6); SODIUM 141 mmol/L (135-145); TOTAL PROTEIN 7.7 g/dL (6.7-8.2); VLDL CHOLESTEROL 16 mg/dL
== END 2019-05-21 23:59 | disposition home or self-care (01) ==
LOC: LAB.WCP 08:00
PROVIDERS: ATTEND Nurse Practitioner Family
DX: E78.5 Hyperlipidemia, unspecified (principal); I10 Essential (primary) hypertension; E03.9 Hypothyroidism, unspecified
CPT/HCPCS: 36415; 80053; 80061; 83721; 84443; 85025

== ENCOUNTER 2019-05-28 22:21 | Outpatient (CLI) | payer MEDICARE, OTHER | END 2019-05-28 22:22 | disposition critical access hospital (66) | LOC: EMS 22:21 | PROVIDERS: ATTEND Surgery | DX: R41.0 Disorientation, unspecified (principal) | CPT/HCPCS: A0425; A0429 ==

== ENCOUNTER 2019-05-28 22:36 | Emergency (ER) | payer MEDICARE, OTHER ==
--- NOTE | 2019-05-28 22:58 | ED Physician Documentation ---
History of Present Illness - Stated complaint Stated Complaint: CONFUSION - Chief complaint Chief Complaint: Neuro - Additonal information Additional information: This is a 78-year-old male with a history of COPD, dementia, Hypertension, past ND s/p PCI, hypothyroidism, Meningioma status post craniotomy and [employer] shunt, who presents to to increased confusion. Patient's states that he also some confusion and when he speaks he gets off track easily, but today he was sleeping for most the day, and when he woke up he would say a few words and then drift back to sleep. She states this is a clear change in behavior for him, so she wanted him to get checked out. He did have a fall in the last week where he may have hit his head, though he did not complain of any headache at this time. He has a cough but this is chronic related to his COPD. He has not had a measured fever, but his thought that his forehead felt little bit warm tonight. He denies any pain or burning with urination. He denies any abdominal pain or vomiting. No chest pain or trouble breathing. His has not noticed any facial droop, weakness, sensation changes, or ataxia. He does not drink alcohol or use drugs. Review of Systems Nose: denies: Rhinorrhea / runny nose Cardiac: denies: Chest pain / pressure Respiratory: denies: Dyspnea GI: denies: Abdominal Pain : denies: Dysuria Skin: denies: Rash Neurologic: reports: Confused PD PAST MEDICAL HISTORY - Past Medical History Cardiovascular: Hypertension, High cholesterol, Pulmonary embolism, ND Respiratory: None, COPD Endocrine/Autoimmune: HyPOthyroidism GI: Ulcers, Colon polyps : None HEENT: Chronic hearing loss Psych: None Musculoskeletal: Other - Past Surgical History Past Surgical History: Yes General: Colonoscopy Ortho: Knee replacement Cardiovascular: Coronary stent, AAA Neuro: [employer] shunt - Present Medications Home Medications: Ambulatory Orders Medication Instructions Recorded Confirmed Aspirin 325 mg PO DAILY 08/20/15 03/11/19 Atenolol 50 mg PO DAILY 08/20/15 03/11/19 Fluticasone/Salmeterol [Advair 2 puffs INH DAILY 08/20/15 03/11/19 100-50 Diskus] Levothyroxine [Synthroid] 75 mcg PO DAILY 08/20/15 03/11/19 Loratadine [Claritin] 10 mg PO DAILY 08/20/15 03/11/19 Simvastatin 20 mg PO DAILY 08/20/15 03/11/19 levETIRAcetam [Keppra] 1,000 mg PO BID 08/20/15 03/11/19 Albuterol Sulfate [Proair Hfa 2 puffs IH QID #1 hfa.aer.ad 07/18/16 03/11/19 Inhaler] Nitroglycerin [Nitrostat] 0.4 mg [id number] TITR PRN 07/18/16 03/11/19 Doxycycline Hyclate 100 mg PO BID #14 capsule 05/29/19 - Allergies Allergies/Adverse Reactions: Allergies Allergy/AdvReac Type Severity Reaction Status Date / Time carbamazepine AdvReac Unknown Verified 05/28/19 22:42 iodine AdvReac Unknown Verified 05/28/19 22:42 shellfish derived AdvReac Unknown Verified 05/28/19 22:42 - Social History Does the pt smoke?: No Smoking Status: Former smoker Does the pt drink ETOH?: No Does the pt have substance abuse?: No - Immunizations Immunizations are current?: Yes PD ED PE NORMAL - Vitals Vital signs reviewed: Yes - General General: No acute distress - HEENT HEENT: Atraumatic, PERRL - Neck Neck: Supple, no meningeal sign - Cardiac Cardiac: RRR, No murmur - Respiratory Respiratory: No respiratory distress, Clear bilaterally, Other (Intermittent cough) - Abdomen Abdomen: Soft, Non tender, Non distended - Derm Derm: Warm and dry - Extremities Extremities: No deformity, No tenderness to palpate - Neuro Neuro: contour sander 2-12 intact, No motor deficit, No sensory deficit, Other (Awake, alert, oriented to self, and place, as well as general event although when he speaks of any details he has tangential thoughts and does not provide many details of his history.) - Psych Psych: Normal mood, Normal affect Results - Vitals Vitals: Vital Signs - 24 hr 05/28/19 05/29/19 22:37 00:19 Temperature 37.0 C Heart Rate 97 82 Respiratory 16 17 Rate Blood Pressure 135/77 H 116/69 O2 Saturation 96 96 Oxygen O2 Source Room air - EKG (time done) 23:02 Other comments: Other comments (Rate 84, rhythm sinus, there is no ST segment elevation or depression, there is T wave flattening/ inversions in leads 4 through 6. There is no previous EKG on file that I can see for comparison. Intervals are within normal limits.) - Labs Labs: Laboratory Tests 05/28/19 05/28/19 05/28/19 23:04 23:04 23:04 WBC 7.6 RBC 3.40 L Hgb 10.4 L Hct 31.4 L MCV 92.4 MCH 30.6 MCHC 33.1 RDW 14.2 Plt Count 124 L MPV 8.9 Neut # (Auto) 6.2 Lymph # (Auto) 0.6 L [place] # (Auto) 0.7 Eos # (Auto) 0.0 Baso # (Auto) 0.0 Absolute Nucleated RBC 0.00 Nucleated RBC % 0.0 Sodium 140 Potassium 4.4 Chloride 105 Carbon Dioxide 25 Anion Gap 10.0 BUN 33 H Creatinine 1.1 Estimated GFR (MDRD) 65 L Glucose 118 H Calcium 10.0 Total Bilirubin 0.9 AST 42 ALT 45 Alkaline Phosphatase 45 Troponin I High Sens Total Protein 7.1 Albumin 4.3 Globulin 2.8 Albumin/Globulin Ratio 1.5 Lipase 50 TSH 2.04 Free T4 1.00 Ethyl Alcohol < 5.0 05/28/19 23:04 WBC RBC Hgb Hct MCV MCH MCHC RDW Plt Count MPV Neut # (Auto) Lymph # (Auto) [place] # (Auto) Eos # (Auto) Baso # (Auto) Absolute Nucleated RBC Nucleated RBC % Sodium Potassium Chloride Carbon Dioxide Anion Gap BUN Creatinine Estimated GFR (MDRD) Glucose Calcium Total Bilirubin AST ALT Alkaline Phosphatase Troponin I High Sens 8.8 Total Protein Albumin Globulin Albumin/Globulin Ratio Lipase TSH Free T4 Ethyl Alcohol - Rads (name of study) CT head WO Radiology: Prelim report reviewed (No acute intracranial findings, redemonst ration of encephalomalacia of the left inferior frontal and anterior temporal lobes, chronic microangiopathic white matter changes and stable position of the right frontal [employer] shunt tube) CXR 2 views Radiology: Other (Left lower lobe airspace opacities which may reflect atelectasis, aspiration, or pneumonia) PD MEDICAL DECISION MAKING - ED course Complexity details: considered differential (Intra cranial hemorrhage, electrolyte abnormality, UTI, ACS, delirium, dementia, stroke, seizure, pneumonia) ED course: On examination patient is well-appearing, he is slightly disoriented to date, but knows where he is the general reason he is here. He has no weakness or cranial nerve deficits or sensory deficits on exam. No signs of stroke and no history that is concerning for stroke. No reported seizures. He did fall and hit his head in the last week, so a CT scan was performed which showed no changes from prior scans. His chest x-ray does show a left lower lobe opacity which may be atelectasis versus an early infiltrate or aspiration. He does not have any leukocytosis or fever, and his cough at his baseline, but given his COPD I prescribed a course of doxycycline and discussed with his the option of starting treatment or carefully observing him and if he has any respiratory symptoms, fever, other signs of pneumonia starting the antibiotic. She is in agreement with this plan. Labs show normal white blood cell count, hemoglobin of 10.4 which is stable from previous values, stable mild thrombocytopenia with platelets of 124. CMP is unremarkable. Troponin is negative, and patient has no chest pain, given his presentation, ACS is extremely unlikely. No signs of dysrhythmia. He also has close follow-up with wood [facility] in the next week. His T4 is within normal limits, ethyl alcohol is negative. He is able to tolerate p.o. without issue, he walks very well with a stable gait using a walker, and his states that he is completely back at his baseline. He was unable to provide a urine sample today, but he has no urinary symptoms and he and his would not like to wait to provide a sample, and do not want a straight catheterization. They agree that they will have a urine test done if he has any recurrence of his symptoms, or if he has any urinary tract infection symptoms. I discussed that I do not have a clear explanation for his resolved episode of mental status change, but given the reassuring results from today, and the fact that he is completely back to his baseline, and he has no complaints at this point, I think it is reasonable for him to follow-up closely as an outpatient. I reviewed strict return precautions and patient was discharged home in the care of his Departure - Departure Disposition: 01 Home, Self Care Clinical Impression: Confusion Condition: Good Follow-Up: Estelita Campos PA-C [Primary Care Provider] - Within 1 week Prescriptions: Doxycycline Hyclate 100 mg PO BID #14 capsule Comments: Joe was seen today because he was sleepier and had some increased confusion. Our testing did not show any obvious cause for this, there were no obvious changes to his head scan. His chest x-ray does show a slight abnormality in the left lower lobe, which may be due to aspiration or from not taking a deep enough breath, given his cough and prescribing a course of doxycycline, which will treat this if it is due to a pneumonia. We also were unable to check his urine today, if he is having any pain or burning with urination, fever, abdominal pain, or recurrence of his confusion, he needs to be checked out again and have a urinalysis done. Please follow-up with his primary care provider. He does conner ve an anemia which is stable from his past values, but should also be followed up on by his primary care provider
[2019-05-28 23:09] LABS: BASOPHILS % (AUTO) 0.3 %; EOSINOPHILS % (AUTO) 0.4 %; HGB - HEMOGLOBIN 10.4 g/dL (14.0-18.0); LYMPHOCYTES # (AUTO) 0.6 10^3/uL (1.5-3.5); LYMPHOCYTES % (AUTO) 8.4 %; MEAN CORPUSCULAR HEMOGLOBIN 30.6 pg (27.0-31.0); MEAN CORPUSCULAR HGB CONC 33.1 g/dL (32.0-36.0); MEAN CORPUSCULAR VOLUME 92.4 fL (80.0-94.0); MEAN PLATELET VOLUME 8.9 fL (7.4-11.4); MONOCYTES # (AUTO) 0.7 10^3/uL (0.0-1.0); MONOCYTES % (AUTO) 9.3 %; NEUTROPHILS # (AUTO) 6.2 10^3/uL (1.5-6.6); NEUTROPHILS % (AUTO) 81.2 %; PLT - PLATELET COUNT 124 10^3/uL (130-450); RED CELL DISTRIBUTION WIDTH 14.2 % (12.0-15.0); WHITE BLOOD COUNT 7.6 x10^3/uL (4.8-10.8)
[2019-05-28 23:22] LABS: ALBUMIN 4.3 g/dL (3.2-5.5); ALBUMIN/GLOBULIN RATIO 1.5 (1.0-2.2); ALKALINE PHOSPHATASE 45 IU/L (42-121); ALT ALANINE AMINOTRANSFERASE 45 IU/L (10-60); AST ASPARTATE AMINOTRANSFERASE 42 IU/L (10-42); BILIRUBIN,TOTAL 0.9 mg/dL (0.2-1.0); BUN - BLOOD UREA NITROGEN 33 mg/dL (6-20); CARBON DIOXIDE - CO2 25 mmol/L (21-32); CHLORIDE 105 mmol/L (101-111); CREATININE 1.1 mg/dL (0.6-1.2); GFR - MDRD 65 (>89); GLUCOSE 118 mg/dL (70-100); LIPASE 50 U/L (22-51); SODIUM 140 mmol/L (135-145); TOTAL PROTEIN 7.1 g/dL (6.7-8.2)
[2019-05-28 23:42] LABS: THYROID STIMULATING HORMONE 2.04 uIU/mL (0.34-5.60)
--- NOTE | 2019-05-29 00:09 | CT Report ---
Reason: Confusion Procedure Date: 05/28/2019 Accession Number: [id number] / [id number] Procedure: CT - HEAD WO CPT Code: Final Report FULL RESULT: EXAM: CT HEAD EXAM DATE: 05/28/2019 11:24 PM CLINICAL HISTORY: Confusion. COMPARISON: HEAD W/O 12/14/2016 10:35 AM. TECHNIQUE: Multiaxial CT images were obtained from the foramen magnum to the vertex. Reformats: Sagittal and coronal. IV contrast: None. In accordance with CT protocol optimization, one or more of the following dose reduction techniques were utilized for this exam: automated exposure control, adjustment of mA and/or KV based on patient size, or use of iterative reconstructive technique. FINDINGS: Parenchyma: Redemonstration of the areas of encephalomalacia involving the inferior left frontal lobe and the anterior left temporal lobe. No acute loss of solis-white matter differentiation. No intracranial hemorrhage. Moderate diffuse parenchymal volume loss. Mild periventricular white matter hypoattenuation, statistically most likely secondary to chronic microangiopathic white matter changes. Extraaxial Spaces: No subdural or epidural collections identified. Ventricles: No hydrocephalus. Stable position of the right frontal approach [employer] shunt tube. Sinuses and Orbits: Imaged paranasal sinuses, orbits, and mastoids show no significant abnormality. Bones: Postsurgical changes of prior left frontotemporal craniotomy. Other: None. IMPRESSION: 1. No acute intracranial findings. 2. Redemonstration of the encephalomalacia in the inferior left frontal and anterior left temporal lobes. 3. Moderate diffuse parenchymal volume loss. 4. Chronic microangiopathic white matter changes. 5. Stable position of the right frontal approach [employer] shunt tube. [facility]
--- NOTE | 2019-05-29 00:09 | XRAY Report ---
Reason: Cough, confusion Procedure Date: 05/28/2019 Accession Number: [id number] / [id number] Procedure: XR - Chest 2 View X-Ray CPT Code: 23828 Final Report FULL RESULT: EXAM: CHEST RADIOGRAPHY EXAM DATE: 05/28/2019 11:29 PM. CLINICAL HISTORY: Cough, confusion. COMPARISON: CHEST 2 VIEW PA/LAT 07/18/2016 1:16 PM. TECHNIQUE: 2 views. FINDINGS: Lungs/Pleura: Prominent interstitial lung markings. Left lower lobe airspace opacities. No pleural effusion or pneumothorax. Mediastinum: Atherosclerotic plaque calcifications in the aorta. Normal heart size. Other: Degenerative changes in the spine. IMPRESSION: Left lower lobe airspace opacities which may reflect atelectasis, aspiration, or pneumonia. [facility]
[2019-05-29 00:20] VITALS: BP 116/69
== END 2019-05-29 00:44 | disposition home or self-care (01) ==
LOC: EDUNIT# → ED 22:36
DX: R41.0 Disorientation, unspecified (principal); F03.90 Unspecified dementia, unspecified severity, without behavioral disturbance, psychotic disturbance, mood disturbance, and anxiety; G93.89 Other specified disorders of brain; Z98.2 Presence of cerebrospinal fluid drainage device; J44.9 Chronic obstructive pulmonary disease, unspecified; R91.8 Other nonspecific abnormal finding of lung field; D64.9 Anemia, unspecified; D69.6 Thrombocytopenia, unspecified; I10 Essential (primary) hypertension; I25.2 Old myocardial infarction; Z95.5 Presence of coronary angioplasty implant and graft; E03.9 Hypothyroidism, unspecified; Z86.711 Personal history of pulmonary embolism; Z79.82 Long term (current) use of aspirin; Z87.891 Personal history of nicotine dependence
CPT/HCPCS: 36415; 70450; 71046; 80053; 80320; 83690; 84439; 84443; 84484; 85025; 93005; 99284

== ENCOUNTER 2019-08-11 09:06 | Outpatient (CLI) | payer MEDICARE, OTHER | END 2019-08-11 09:07 | disposition EMS.NT | LOC: EMS 09:06 | PROVIDERS: ATTEND Surgery | DX: R53.1 Weakness (principal) ==

== ENCOUNTER 2019-09-10 15:00 | Outpatient (CLI) | payer MEDICARE, OTHER ==
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
== END 2019-09-10 15:01 | disposition home or self-care (01) ==
LOC: PC 15:00
PROVIDERS: ATTEND Nurse Practitioner Family
DX: Z51.5 Encounter for palliative care (principal); G12.21 Amyotrophic lateral sclerosis; R41.9 Unspecified symptoms and signs involving cognitive functions and awareness; R29.6 Repeated falls; J44.9 Chronic obstructive pulmonary disease, unspecified; R63.4 Abnormal weight loss; K59.00 Constipation, unspecified; E03.9 Hypothyroidism, unspecified; H91.93 Unspecified hearing loss, bilateral; G40.909 Epilepsy, unspecified, not intractable, without status epilepticus; I25.2 Old myocardial infarction; I10 Essential (primary) hypertension; Z79.82 Long term (current) use of aspirin; Z79.899 Other long term (current) drug therapy; Z99.81 Dependence on supplemental oxygen; Z87.891 Personal history of nicotine dependence; Z86.69 Personal history of other diseases of the nervous system and sense organs
CPT/HCPCS: 99345

== ENCOUNTER 2019-10-08 17:23 | Outpatient (CLI) | payer MEDICARE, OTHER ==
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
== END 2019-10-08 17:24 | disposition home or self-care (01) ==
LOC: PC 17:23
PROVIDERS: ATTEND Nurse Practitioner Family
DX: Z51.5 Encounter for palliative care (principal); G12.21 Amyotrophic lateral sclerosis; R41.3 Other amnesia; R41.9 Unspecified symptoms and signs involving cognitive functions and awareness; K59.00 Constipation, unspecified; R63.4 Abnormal weight loss; Z79.899 Other long term (current) drug therapy; Z79.82 Long term (current) use of aspirin
CPT/HCPCS: 99350

== ENCOUNTER 2019-11-19 08:00 | Outpatient (CLI) | payer MEDICARE, OTHER ==
[2019-11-19 18:42] LABS: BASOPHILS % (AUTO) 0.4 %; EOSINOPHILS # (AUTO) 0.2 10^3/uL (0.0-0.7); EOSINOPHILS % (AUTO) 3.9 %; HGB - HEMOGLOBIN 11.8 g/dL (14.0-18.0); LYMPHOCYTES # (AUTO) 1.1 10^3/uL (1.5-3.5); LYMPHOCYTES % (AUTO) 21.8 %; MEAN CORPUSCULAR HEMOGLOBIN 32.8 pg (27.0-31.0); MEAN CORPUSCULAR HGB CONC 33.5 g/dL (32.0-36.0); MEAN CORPUSCULAR VOLUME 97.8 fL (80.0-94.0); MEAN PLATELET VOLUME 9.6 fL (7.4-11.4); MONOCYTES # (AUTO) 0.7 10^3/uL (0.0-1.0); MONOCYTES % (AUTO) 15.4 %; NEUTROPHILS # (AUTO) 2.8 10^3/uL (1.5-6.6); NEUTROPHILS % (AUTO) 58.1 %; PLT - PLATELET COUNT 127 10^3/uL (130-450); RED CELL DISTRIBUTION WIDTH 14.4 % (12.0-15.0); WHITE BLOOD COUNT 4.8 x10^3/uL (4.8-10.8)
[2019-11-19 18:53] LABS: ALBUMIN 4.7 g/dL (3.2-5.5); ALBUMIN/GLOBULIN RATIO 1.7 (1.0-2.2); ALKALINE PHOSPHATASE 58 IU/L (42-121); ALT ALANINE AMINOTRANSFERASE 39 IU/L (10-60); AST ASPARTATE AMINOTRANSFERASE 37 IU/L (10-42); BILIRUBIN,TOTAL 1.3 mg/dL (0.2-1.0); BUN - BLOOD UREA NITROGEN 29 mg/dL (6-20); CALCIUM 9.9 mg/dL (8.5-10.3); CARBON DIOXIDE - CO2 23 mmol/L (21-32); CHLORIDE 105 mmol/L (101-111); CHOL/HDL RATIO 3.9 (<5.0); CHOLESTEROL 151 mg/dL; CREATININE 1.2 mg/dL (0.6-1.2); GLUCOSE 92 mg/dL (70-100); HDL CHOLESTEROL 39 mg/dL; LDL CHOLESTEROL,CALCULATED 93 mg/dL; LDL/HDL RATIO 2.4 (<3.6); SODIUM 139 mmol/L (135-145); TOTAL PROTEIN 7.4 g/dL (6.7-8.2); VLDL CHOLESTEROL 19 mg/dL
== END 2019-11-19 23:59 | disposition home or self-care (01) ==
LOC: LAB.WCP 08:00
PROVIDERS: ATTEND Physician Assistant Medical
DX: I25.10 Atherosclerotic heart disease of native coronary artery without angina pectoris (principal); D70.9 Neutropenia, unspecified
CPT/HCPCS: 36415; 80053; 80061; 83721; 85025

== ENCOUNTER 2019-11-19 11:42 | Outpatient (CLI) | payer MEDICARE, OTHER ==
--- NOTE | 2019-11-19 11:55 | XRAY Report ---
Reason: RIGHT SHOULDER PAIN Procedure Date: 11/19/2019 Accession Number: [id number] / [id number] Procedure: WCP - Shoulder 2 View RT CPT Code: Final Report FULL RESULT: PROCEDURE: Shoulder 2 View RT INDICATIONS: RIGHT SHOULDER PAIN TECHNIQUE: 2 views of the shoulder were acquired. COMPARISON: CXR 05/28/2019, 03/24/2018. FINDINGS: Bones: No fractures or dislocations. Mild inferior subluxation of the humeral head in relation to the glenoid, similar to the prior exams. There is moderate degenerative change at the acromioclavicular joint and mild at the glenohumeral joint appreciated. Small calcifications near the rotator cuff footprint are unchanged and may represent sequelae of prior calcific tendinitis or rotator cuff injury. No suspicious bony lesions. Visualized ribs appear intact. Soft tissues: No suspicious soft tissue calcifications. Small calcification at the right lateral thorax may represent a small pleural plaque and is unchanged. ASSOCIATE TEACHER shunt catheter overlying the right thorax. IMPRESSION: 1. No fracture or dislocation. 2. Mild to moderate degenerative change appreciated in the right shoulder. Overall findings appear similar to prior chest radiographs. 3. Question of small right pleural plaque. Reviewed by: Lamonte Diaz MD on 11/19/2019 11:54 AM PDT Approved by: Lamonte Diaz MD on 11/19/2019 11:54 AM PDT Station ID: [id number]
== END 2019-11-19 23:59 | disposition home or self-care (01) ==
LOC: DI.WCP 11:42
PROVIDERS: ATTEND Physician Assistant Medical
DX: M19.011 Primary osteoarthritis, right shoulder (principal); R93.89 Abnormal findings on diagnostic imaging of other specified body structures; I25.10 Atherosclerotic heart disease of native coronary artery without angina pectoris; D70.9 Neutropenia, unspecified
CPT/HCPCS: 36415; 80053; 80061; 83721; 85025

== ENCOUNTER 2019-11-19 14:15 | Outpatient (CLI) | payer MEDICARE, OTHER ==
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
== END 2019-11-19 14:16 | disposition home or self-care (01) ==
LOC: PC 14:15
PROVIDERS: ATTEND Nurse Practitioner Family
DX: Z51.5 Encounter for palliative care (principal); G12.21 Amyotrophic lateral sclerosis; G40.909 Epilepsy, unspecified, not intractable, without status epilepticus; R45.1 Restlessness and agitation; R63.4 Abnormal weight loss; R00.0 Tachycardia, unspecified; K59.00 Constipation, unspecified; Z79.899 Other long term (current) drug therapy; Z79.82 Long term (current) use of aspirin
CPT/HCPCS: 99350

== ENCOUNTER 2019-11-30 12:15 | Outpatient (CLI) | payer MEDICARE, OTHER ==
--- NOTE | 2019-12-02 14:08 | Ultrasound Report ---
PROCEDURE: Retroperitoneal Limited INDICATIONS: AAA TECHNIQUE: Real-time scanning was performed of the retroperitoneal organs, with image documentation. COMPARISON: CT abdomen pelvis 03/24/2013 FINDINGS: Distal aortic endograft extending to the common iliac arteries is identified. Proximal aorta measures 2.5 x 2.3 cm. Midportion measures 2.0 cm. Distal portion including the graft measures 3.8 x 3.4 cm. Right and left common iliac arteries measure 1.4 x 1.5 cm and 1.6 x 1.3 cm respectively. This appears stable compared to 2013. IMPRESSION: Aortic endograft within the distal aorta extending to the common iliac arteries. Overall appearance i s stable compared to prior exam. Reviewed by: Nida Wooten MD on 12/02/2019 2:07 PM PDT Approved by: Nida Wooten MD on 12/02/2019 2:07 PM PDT Station ID: [id number]
== END 2019-11-30 12:16 | disposition home or self-care (01) ==
LOC: DI 12:15
PROVIDERS: ATTEND Physician Assistant Medical
DX: I71.4 Abdominal aortic aneurysm, without rupture (principal)
CPT/HCPCS: 76775

== ENCOUNTER 2019-12-13 19:09 | Outpatient (CLI) | payer MEDICARE, OTHER | END 2019-12-13 19:10 | disposition critical access hospital (66) | LOC: EMS 19:09 | PROVIDERS: ATTEND Surgery | DX: R50.9 Fever, unspecified (principal); R05 Cough; R53.1 Weakness; R41.82 Altered mental status, unspecified | CPT/HCPCS: A0425; A0429 ==

== ENCOUNTER 2019-12-13 19:30 | Inpatient (IN) | payer MEDICARE, OTHER ==
--- NOTE | 2019-12-13 19:37 | ED Physician Documentation ---
PD HPI FEVER - Stated complaint Stated Complaint: FEVER/ COUGH - History obtained from History obtained from: EMS - Additional information Additional information: 79-year-old gentleman with history of dementia, ALS presents by ambulance. Patt moon has had 2 days worth of cough and a fever to 103 today. He wears oxygen at home as needed. Patient is an unreliable historian due to dementia and I am led to believe by the paramedics that his should be coming in a little bit. Review of Systems Unable to obtain: Dementia PD PAST MEDICAL HISTORY - Past Medical History Cardiovascular: Hypertension, High cholesterol, [place] (in 1997 with drug eluting stents x 2) Respiratory: None, COPD (on supplemental nocturnal oxygen therapy) Neuro: Other (Neurocognitive disorder) Endocrine/Autoimmune: HyPOthyroidism GI: Ulcers, Colon polyps : None HEENT: Chronic hearing loss Psych: None Musculoskeletal: Other (ALS) Derm: None - Past Surgical History Past Surgical History: Yes General: Colonoscopy (2004, 2008, 2010, 2018), Other (right herniorrhaphy 2010) Ortho: Knee replacement (bilateral in 2009) Cardiovascular: Coronary stent (1997 and 2006), AAA (endoscopic graft 2011) Neuro: PROJECT SURVEYOR shunt - Present Medications Home Medications: Ambulatory Orders Medication Instructions Recorded Confirmed Aspirin 325 mg PO DAILY 08/20/15 09/11/19 Atenolol 50 mg PO DAILY 08/20/15 09/11/19 Levothyroxine [Synthroid] 75 mcg PO DAILY 08/20/15 09/11/19 Loratadine [Claritin] 10 mg PO DAILY 08/20/15 09/11/19 levETIRAcetam [Keppra] 1,000 mg PO BID 08/20/15 09/11/19 Nitroglycerin [Nitrostat] 0.4 mg [id number] TITR PRN 07/18/16 09/11/19 Acetaminophen [Tylenol] 650 mg PO Q6H PRN MDD NTE 3g daily 09/11/19 09/11/19 of all sources Albuterol Sulfate [Proair Hfa 2 puffs IH QID PRN 09/11/19 09/11/19 Inhaler] Atorvastatin [Lipitor] 10 mg PO QPM 09/11/19 09/11/19 Calcium Carbonate [Calcium] 600 mg PO BID 09/11/19 09/11/19 Docusate Sodium 100 mg PO QPM MDD Hold loose stools 09/11/19 09/11/19 Fluticasone Propion/Salmeterol 1 puffs IN BID 09/11/19 09/11/19 [Wixela 100-50 Inhub] Wheat Dextrin [Benefiber] MDD 2scoop BID 09/11/19 Sertraline [Zoloft] 25 mg PO DAILY 11/19/19 11/19/19 - Allergies Allergies/Adverse Reactions: Allergies Allergy/AdvReac Type Severity Reaction Status Date / Time carbamazepine AdvReac Unknown Verified 09/11/19 13:13 iodine AdvReac Unknown Verified 09/11/19 13:13 shellfish derived AdvReac Unknown Verified 09/11/19 13:13 - Social History Does the pt smoke?: No Smoking Status: Former smoker Does the pt drink ETOH?: No Does the pt have substance abuse?: No - Immunizations Immunizations are current?: Yes - POLST Patient has POLST: Yes PD ED PE NORMAL - Vitals Vital signs reviewed: Yes - General General: Other (He is alert and cooperative, follows commands, says the year is "90" and says he is "90") - HEENT HEENT: PERRL, EOMI - Cardiac Cardiac: Other (Rapid and irregular without murmur) - Respiratory Respiratory: No respiratory distress, Other (Rhonchorous and diminished) - Abdomen Abdomen: Soft, Non tender - Derm Derm: No rash - Neuro Neuro: No motor deficit, No sensory deficit Eye Opening: Spontaneous Motor: Obeys Commands Verbal: Confused GCS Score: 14 - Psych Psych: Normal mood, Normal affect Results - Vitals Vitals: Vital Signs - 24 hr 12/13/19 12/13/19 19:25 20:01 Temperature 37.7 C H Heart Rate 124 H 126 H Respiratory 22 23 Rate Blood Pressure 138/95 H 138/95 H O2 Saturation 100 100 Oxygen O2 Source Nasal cannula Oxygen Flow Rate 2 - EKG (time done) 1948 Rate: Rate (enter#) (125) Rhythm: Sinus tachycardia [place]: Normal Intervals: Normal SC QRS: Low voltage Ischemia: Non specific changes. No: ST elevation c/w ischemia Computer interpretation: Agree with computer - Labs Labs: Laboratory Tests 12/13/19 12/13/19 12/13/19 19:30 19:30 19:30 WBC 8.4 RBC 3.53 L Hgb 11.4 L Hct 34.1 L MCV 96.6 H MCH 32.3 H MCHC 33.4 RDW 13.6 Plt Count 128 L MPV 9.5 Neut # (Auto) 7.0 H Lymph # (Auto) 0.8 L [place] # (Auto) 0.5 Eos # (Auto) 0.0 Baso # (Auto) 0.0 Absolute Nucleated RBC 0.00 Nucleated RBC % 0.0 Sodium 135 Potassium 4.8 Chloride 101 Carbon Dioxide 24 Anion Gap 10.0 BUN 42 H Creatinine 1.2 Estimated GFR (MDRD) 58 L Glucose 106 H Lactic Acid Calcium 9.4 Total Bilirubin 1.3 H AST 39 ALT 38 Alkaline Phosphatase 49 Total Protein 7.2 Albumin 4.4 Globulin 2.8 Albumin/Globulin Ratio 1.6 Lipase 44 TSH 1.45 12/13/19 19:38 WBC RBC Hgb Hct MCV MCH MCHC RDW Plt Count MPV Neut # (Auto) Lymph # (Auto) [place] # (Auto) Eos # (Auto) Baso # (Auto) Absolute Nucleated RBC Nucleated RBC % Sodium Potassium Chloride Carbon Dioxide Anion Gap BUN Creatinine Estimated GFR (MDRD) Glucose Lactic Acid 1.4 Calcium Total Bilirubin AST ALT Alkaline Phosphatase Total Protein Albumin Globulin Albumin/Globulin Ratio Lipase TSH - Rads (name of study) 1v chest Radiology: EMP read contemporaneously (LLL KWAME) PD MEDICAL DECISION MAKING - ED course ED course: 79-year-old gentleman with underlying lung disease presents with cough and a high fever at home. PSI score is 125 points. Treated with IV Rocephin and Zithromax after blood cultures.Spoke with Dr. Trinh for admission at 8:45 PM. Departure - Departure Disposition: [facility] DC/Xfer Clinical Impression: Pneumonia Qualifiers: Pneumonia type: due to unspecified organism Laterality: left Lung location: lower lobe of lung Qualified Code(s): J18.9 - Pneumonia, unspecified organism Condition: Serious
[2019-12-13 19:51] LABS: BASOPHILS % (AUTO) 0.4 %; EOSINOPHILS % (AUTO) 0.2 %; HGB - HEMOGLOBIN 11.4 g/dL (14.0-18.0); LYMPHOCYTES # (AUTO) 0.8 10^3/uL (1.5-3.5); LYMPHOCYTES % (AUTO) 9.9 %; MEAN CORPUSCULAR HEMOGLOBIN 32.3 pg (27.0-31.0); MEAN CORPUSCULAR HGB CONC 33.4 g/dL (32.0-36.0); MEAN CORPUSCULAR VOLUME 96.6 fL (80.0-94.0); MEAN PLATELET VOLUME 9.5 fL (7.4-11.4); MONOCYTES # (AUTO) 0.5 10^3/uL (0.0-1.0); MONOCYTES % (AUTO) 6.2 %; NEUTROPHILS % (AUTO) 82.9 %; PLT - PLATELET COUNT 128 10^3/uL (130-450); RED BLOOD COUNT 3.53 10^6/uL (4.70-6.10); RED CELL DISTRIBUTION WIDTH 13.6 % (12.0-15.0); WHITE BLOOD COUNT 8.4 x10^3/uL (4.8-10.8)
[2019-12-13 20:05] LABS: ALBUMIN 4.4 g/dL (3.2-5.5); ALBUMIN/GLOBULIN RATIO 1.6 (1.0-2.2); BILIRUBIN,TOTAL 1.3 mg/dL (0.2-1.0); CALCIUM 9.4 mg/dL (8.5-10.3); CREATININE 1.2 mg/dL (0.6-1.2); TOTAL PROTEIN 7.2 g/dL (6.7-8.2)
[2019-12-13] MEDS ORDERED: SODIUM CHLORIDE 0.9% 1,000 ML IV STA (20:27)
--- NOTE | 2019-12-13 20:27 | XRAY Report ---
PROCEDURE: Chest 1 View X-Ray INDICATIONS: cough fever TECHNIQUE: One view of the chest was acquired. COMPARISON: 05.28.19 chest x-ray FINDINGS: Surgical changes and devices: None. Lungs and pleura: No pleural effusions or pneumothorax. There is moderate airspace opacity within th e left mid and lower lung. Mediastinum: Mediastinal contours appear normal. Heart size is normal. Bones and chest wall: No suspicious bony lesions. Overlying soft tissues appear unremarkable. IMPRESSION: Left lower lobe pneumonia. Follow-up PA and lateral chest x-rays or chest CT is recommended to ensure resolution, and to exclude underlying neoplasm. Reviewed by: Amrit aDiley MD on 12/13/2019 8:26 PM PDT Approved by: Amrit Dailey MD on 12/13/2019 8:26 PM PDT Station ID: [id number]
[2019-12-13 20:41] LABS: BILIRUBIN,URINE NEGATIVE (NEGATIVE); GLUCOSE, URINE (UA) NEGATIVE (NEGATIVE); KETONES,URINE (UA) NEGATIVE (NEGATIVE); LEUKOCYTE ESTERASE, URINE NEGATIVE (NEGATIVE); NITRITE,URINE NEGATIVE (NEGATIVE); OCCULT BLOOD,URINE SMALL (NEGATIVE); PROTEIN,URINE NEGATIVE (NEGATIVE); UROBILINOGEN,URINE 0.2 (NORMAL) E.U./dL (NORMAL)
[2019-12-13] MEDS ORDERED: cefTRIAXone 2 GM in SODIUM CHLORIDE 0.9% MINIBAG 100 ML IV STA (20:41)
[2019-12-13] MEDS ORDERED: AZITHROMYCIN INJ 500 MG in SODIUM CHLORIDE 0.9% 250 ML IV STA (20:41)
[2019-12-13] MEDS ORDERED: ACETAMINOPHEN 325 MG TABLET PO PRN (20:52)
[2019-12-13] MEDS ORDERED: SODIUM CHLORIDE FLUSH 0.9% 10 ML SYRINGE IVP PRN (20:52)
[2019-12-13 20:53] LABS: CLARITY,URINE CLEAR (CLEAR)
[2019-12-13 20:57] LABS: BACTERIA,URINE Rare /HPF (None Seen); SQUAMOUS EPITHELIAL CELL,UR NONE SEEN (<= Few); WBC CLUMPS,URINE PRESENT
--- NOTE | 2019-12-13 21:04 | HISTORY & PHYSICAL EXAMINATION ---
Chief Complaint - Chief Complaint Chief Complaint: fever, cough History of Present Illness - Admitted From Admitted From:: [facility] - History Obtained From Records Reviewed: yes History obtained from: ED physician Exam Limitations: very hard of hearing, dementia - History of Present Illness HPI Comment/Other: Patient is an 79-year-old male with history of ALS, dementia, COPD, hypertension, CAD, hypothyroidism who presented to the ED via EMS. The patient is very hard of hearing. As a result this history was obtained from his over the phone. She reported that around dinnertime the patient complained of not feeling well. He then went to lay on the couch and was shivering. He complained of being very cold. His eyes were glassy at the time. She took his temperature and it was 39.9 C. Due to the patient's ALS he has little strength in his legs. His was not able to get him to the car to bring him to the emergency department. As a result she called EMS who brought the patient to the ED. His temperature in the ED was 38.1 C. He was also tachycardic with a heart rate of 124. Work-up in the ED included a chest x-ray which showed left lower lobe pneumonia. As a result he was presented for admission. At the time of admission the patient was resting comfortably in bed. He is on oxygen 2 L nasal cannula which is his baseline oxygen at home. He uses this as needed every night. On auscultation of his lungs he sounds rhonchorous. The rest of his history is unremarkable. History - Past Medical History Cardiovascular: reports: Hypertension, High cholesterol, Coronary artery disease, VT (in 1997 with drug eluting stents x 2) Respiratory: reports: COPD (on supplemental nocturnal oxygen therapy) Neuro: reports: Dementia, Seizure disorder, Other (Neurocognitive disorder, benign brain tumor) Endocrine/Autoimmune: reports: HyPOthyroidism GI: reports: GERD, Ulcers, Colon polyps : reports: None HEENT: reports: Chronic hearing loss Psych: reports: None Musculoskeletal: reports: Other (ALS) Derm: reports: None MRSA Hx?: No - Past Surgical History General: reports: Colonoscopy (2004, 2008, 2010, 2018), Other (right herniorrhaphy 2010) Ortho: reports: Knee replacement (bilateral in 2009) Cardiovascular: reports: Coronary stent (1997 and 2006), AAA (endoscopic graft 2012) Neuro: reports: ELECTRIC[employer]IPMENT shunt - Family & Social History Family History: Mother: , Father: Social History Notes: Patient is a former smoker. Had 75 pack years. Quit smoking in 1996. Patient drinks less than 1 alcoholic drink a day. No illicit drug use. Patient lives at home with his - Substance History Use: Uses substance without health or social issues: NONE (former smoker started age 9 and stopped in 1996; drinks alochol very rarely) - POLST Patient has POLST: Yes POLST Status: Full Code Meds/Allgy - Home Medications Home Medications: Ambulatory Orders Medication Instructions Recorded Confirmed Aspirin 325 mg PO DAILY 08/20/15 09/11/19 Atenolol 50 mg PO DAILY 08/20/15 09/11/19 Levothyroxine [Synthroid] 75 mcg PO DAILY 08/20/15 09/11/19 Loratadine [Claritin] 10 mg PO DAILY 08/20/15 09/11/19 levETIRAcetam [Keppra] 1,000 mg PO BID 08/20/15 09/11/19 Nitroglycerin [Nitrostat] 0.4 mg [id number] TITR PRN 07/18/16 09/11/19 Acetaminophen [Tylenol] 650 mg PO Q6H PRN MDD NTE 3g daily 09/11/19 09/11/19 of all sources Albuterol Sulfate [Proair Hfa 2 puffs IH QID PRN 09/11/19 09/11/19 Inhaler] Atorvastatin [Lipitor] 10 mg PO QPM 09/11/19 09/11/19 Calcium Carbonate [Calcium] 600 mg PO BID 09/11/19 09/11/19 Docusate Sodium 100 mg PO QPM MDD Hold loose stools 09/11/19 09/11/19 Fluticasone Propion/Salmeterol 1 puffs IN BID 09/11/19 09/11/19 [Wixela 100-50 Inhub] Wheat Dextrin [Benefiber] MDD 2scoop BID 09/11/19 Sertraline [Zoloft] 25 mg PO DAILY 11/19/19 11/19/19 - Allergies Allergies/Adverse Reactions: Allergies Allergy/AdvReac Type Severity Reaction Status Date / Time carbamazepine AdvReac Unknown Verified 09/11/19 13:13 iodine AdvReac Unknown Verified 09/11/19 13:13 shellfish derived AdvReac Unknown Verified 09/11/19 13:13 Review of Systems - Other Findings Other Findings: Review of system is limited due to patient's baseline dementia Prior Level of Functionality: Patient has baseline dementia. However he still lives at home with his . He is also on oxygen via nasal cannula as needed. He gets around with the aid of a walker or a cane. He is able to feed himself and do personal cares. Exam - Vital Signs Vital Signs: Vital Signs x48h Temp Pulse Resp BP Pulse Ox 12/13/19 20:01 126 H 23 138/95 H 100 12/13/19 19:25 37.7 C H 124 H 22 138/95 H 100 - Physical Exam General Appearance: positive: No acute distress Eyes Bilateral: positive: PERRL, EOMI ENT: positive: No signs of dehydration Neck: positive: No JVD, Trachea midline Respiratory: positive: Chest non-tender, No respiratory distress, Rhonchi Cardiovascular: positive: Tachycardia Abdomen: positive: Non-tender, Nml bowel sounds, No distention. negative: Guarding, Rebound Skin: positive: Color nml, No rash, Warm, Dry Extremities: positive: Non-tender, Full ROM, Nml appearance, No pedal edema Neurologic/Psychiatric: positive: Mood/affect nml, Disoriented to person, Disoriented to place, Disoriented to time Conclusion/Plan - Problem List (1) Pneumonia Conclusion/Plan: Patient started on 2g Rocephin IV and 500mg azithromycin IV. Will continue. Continue supplemental oxygen via nasal cannula 2 L. IV hydration with normal saline at 100 mils per hour. COVID-19 testing pending. Influenza test pending. Tylenol for fever. Qualifiers: Pneumonia type: due to unspecified organism Laterality: left Lung location: lower lobe of lung Qualified Code(s): J18.9 - Pneumonia, unspecified organism (2) Hypertension Conclusion/Plan: Patient is on atenolol 50 mg p.o. daily. Will resume once verified. (3) Hyperlipidemia Conclusion/Plan: On atorvastatin 10 mg p.o. every afternoon. Will resume once verified. (4) COPD (chronic obstructive pulmonary disease) Conclusion/Plan: Not in exacerbation. Will order an inhaler to be administered as needed. Will subsequently order breathing treatment once COVID-19 ruled out (5) CAD (coronary artery disease) Conclusion/Plan: Patient is on aspirin, atenolol and atorvastatin. (6) Hx of seizure disorder Conclusion/Plan: Patient is on Keppra 1000 mg p.o. twice daily. Will resume once verified. (7) Hypothyroidism Conclusion/Plan: Patient is on levothyroxine 75 mcg p.o. daily. - Lab Results Fish Bones: 12/13/19 19:30 12/13/19 19:30 Core Measures - Anticipated LOS I expect patient to be DC'd or transferred within 96 hours.: Yes - DVT/VTE - Prophylaxis VTE/DVT Device ordered at admit?: Yes VTE/DVT Prophylaxis med ordered at admit?: Yes
[2019-12-13] MEDS ORDERED: ALBUTEROL 1 PUFF INH PRN (21:30)
[2019-12-13] MEDS: SODIUM CHLORIDE 0.9% 1,000 ML IV SCH (22:32)
[2019-12-14] MEDS: SODIUM CHLORIDE FLUSH 0.9% 10 ML SYRINGE IVP SCH ×3 (00:10→17:05)
[2019-12-14 05:32] LABS: BASOPHILS % (AUTO) 0.3 %; EOSINOPHILS % (AUTO) 0.1 %; HGB - HEMOGLOBIN 9.3 g/dL (14.0-18.0); LYMPHOCYTES # (AUTO) 0.9 10^3/uL (1.5-3.5); LYMPHOCYTES % (AUTO) 11.8 %; MEAN CORPUSCULAR HEMOGLOBIN 31.3 pg (27.0-31.0); MEAN CORPUSCULAR HGB CONC 33.3 g/dL (32.0-36.0); MEAN CORPUSCULAR VOLUME 93.9 fL (80.0-94.0); MEAN PLATELET VOLUME 9.2 fL (7.4-11.4); MONOCYTES # (AUTO) 0.7 10^3/uL (0.0-1.0); MONOCYTES % (AUTO) 8.8 %; NEUTROPHILS # (AUTO) 6.2 10^3/uL (1.5-6.6); NEUTROPHILS % (AUTO) 78.2 %; PLT - PLATELET COUNT 102 10^3/uL (130-450); RED BLOOD COUNT 2.97 10^6/uL (4.70-6.10); RED CELL DISTRIBUTION WIDTH 13.7 % (12.0-15.0); WHITE BLOOD COUNT 7.9 x10^3/uL (4.8-10.8)
[2019-12-14 05:38] LABS: CALCIUM 8.5 mg/dL (8.5-10.3); CREATININE 0.9 mg/dL (0.6-1.2)
[2019-12-14] MEDS: PANTOPRAZOLE 40 MG TABLET PO SCH (06:47)
[2019-12-14] MEDS: LEVOTHYROXINE 75 MCG TABLET PO SCH (06:47)
[2019-12-14] MEDS ORDERED: METOPROLOL 5 MG/5 ML VIAL IVP SCH (08:06)
[2019-12-14] MEDS: ENOXAPARIN 40 MG/0.4 ML SYRINGE SUBQ SCH (08:25)
[2019-12-14] MEDS: SODIUM CHLORIDE 0.9% 1,000 ML IV SCH ×2 (08:32→17:05)
--- NOTE | 2019-12-14 12:59 | PHARMACY PROGRESS NOTE ---
- Best Possible Medication History Admit Date and Time: 12/13/192051 Processed by: Pharmacy Medication History completed: Yes Patient Interview: Completed Secondary Source(s): Spouse/Significant other, Pharmacy records, Insurance records As the person ultimately responsible for medication therapy, providers are able to order a medication from an existing home medication list in [facility] via the "Reconcile Routine" prior to Confirmation of that medication by youth accommodation support worker. Such practice is discouraged except when the physician, in their clinical judgment, deems that a medical need exists for a medication without regard to previous use.
--- NOTE | 2019-12-14 13:03 | PROVIDER PROGRESS NOTE ---
Subjective - Prog Note Date Prog Note Date: 12/14/19 Prog Note Time: 12:55 - Subjective Pt reports feeling: No change Subjective: He is sitting up in bed. He has eaten breakfast, lunch. No aspiration no dysphasia. at the bedside. He is followed by palliative care service and sees TICKET COLLECTOR Jammie Luo. She last saw him November 18. Current Medications - Current Medications Current Medications: Active Medications Acetaminophen (Tylenol) 650 mg PO Q6HR PRN PRN Reason: Pain 1 to 4 Albuterol (Mdi: Albuterol) 2 puffs INH Q4H PRN PRN Reason: Dyspnea Aspirin (Soren) 325 mg PO DAILY [facility] Atorvastatin Calcium (Lipitor) 10 mg PO QPM [facility] Calcium Carbonate/Glycine (Tums) 500 mg PO BID [facility] Enoxaparin Sodium (Lovenox) 40 mg SUBQ DAILY [facility] Last Admin: 12/14/19 08:25 Dose: 40 mg Documented by: Sodium Chloride (Normal Saline 0.9%) 1,000 mls @ 100 mls/hr IV .Q10H [facility] Last Admin: 12/14/19 08:32 Dose: 100 mls/hr Documented by: Azithromycin 500 mg/ Sodium (Chloride) 250 mls @ 250 mls/hr IV Q24H [facility] Stop: 12/15/19 20:59 Ceftriaxone Sodium 2 gm/ (Sodium Chloride) 100 mls @ 200 mls/hr IV Q24H [facility] Levothyroxine Sodium (Synthroid) 75 mcg PO QDAC [facility] Last Admin: 12/14/19 06:47 Dose: 75 mcg Documented by: Metoprolol Succinate (Toprol Xl) 50 mg PO BID [facility] Non-Formulary Medication (Levetiracetam [Levetiracetam]) 1,000 mg PO BID [facility] Pantoprazole Sodium (Protonix) 40 mg PO QDAC [facility] Last Admin: 12/14/19 06:47 Dose: 40 mg Documented by: Sertraline HCl (Zoloft) 25 mg PO DAILY [facility] Sodium Chloride (Normal Saline Flush 0.9%) 10 ml IVP PRN PRN PRN Reason: NEEDED PER PROVIDER ORDERS Sodium Chloride (Normal Saline Flush 0.9%) 10 ml IVP 0100,0900,1700 [facility] Last Admin: 12/14/19 08:56 Dose: 10 ml Documented by: Aspirin 325 mg PO DAILY 08/20/15 Levothyroxine [Synthroid] 75 mcg PO DAILY 08/20/15 Nitroglycerin [Nitrostat] 0.4 mg [id number] TITR PRN 07/18/16 Atorvastatin [Lipitor] 10 mg PO QPM 09/11/19 Calcium Carbonate [Calcium] 600 mg PO BID 09/11/19 Fluticasone Propion/Salmeterol [Wixela 100-50 Inhub] 1 puffs IN BID 09/11/19 Sertraline [Zoloft] 25 mg PO DAILY 11/19/19 Metoprolol Succinate 50 mg PO BID 12/14/19 levETIRAcetam [Levetiracetam] 1,000 mg PO BID 12/14/19 Objective - Vital Signs/Intake & Output Reviewed Vital Signs: Yes Vital Signs: Vital Signs x48h Temp Pulse Pulse Resp BP BP Pulse Ox 12/14/19 12:02 36.5 C 18 98 12/14/19 11:47 36.6 C 100 18 97 12/14/19 10:15 103 H 101/73 12/14/19 09:30 103 H 94/65 12/14/19 09:15 107 H 97/69 12/14/19 08:59 105 H 100/56 L 12/14/19 08:45 108 H 109/72 12/14/19 08:41 92 105/57 L 12/14/19 08:34 85 99/68 12/14/19 08:30 127 H 99/66 12/14/19 08:25 96/66 12/14/19 08:00 36.6 C 122 H 18 108/77 99 Intake & Output: Intake & Output 12/11/19 12/12/19 12/13/19 12/14/19 23:59 23:59 23:59 23:59 Intake Total 1380 1480 Output Total 400 550 Balance 980 930 - Objective General Appearance: positive: No acute distress, Alert, Other (Thin white male, looks stated age, profoundly deaf, can barely hear what I say. I have typed up 3 points for his consideration. Point #1 being that he has pneumonia and will be here 3 days. Point #2 is that he will be seeing physical therapy while here. Point #3 is that I would like to educate h) Eyes Bilateral: positive: PERRL, EOMI ENT: positive: Pharynx nml Neck: positive: No JVD Respiratory: positive: Chest non-tender, No respiratory distress, Other (Dull mid lung base with egophony). negative: Wheezes, Rales, Rhonchi Cardiovascular: positive: Regular rate & rhythm, Systolic murmur. negative: Gallop/S4, Friction rub Abdomen: positive: Non-tender, No organomegaly, Nml bowel sounds, No distention Extremities: positive: Full ROM, No pedal edema Neurologic/Psychiatric: positive: Motor nml (No dysphasia, no dysarthria. Diffusely weakened but no focal deficits. Reflexes do not show clonus. Able to use his arms to reach for food, cut it, bring it to his mouth. Able to reach for the phone but unable to remember the number he wants. Unable to remember how to use the remote control. C), Disoriented to time. negative: CN's nml (2- 12) (deaf) - Lab Results Fish Bones: 12/14/19 05:20 12/14/19 05:20 Other Labs: Lab Results x24hrs 12/14/19 12/14/19 12/14/19 Range/Units 12:10 05:20 05:20 WBC 7.9 (4.8-10.8) x10^3/uL RBC 2.97 L (4.70-6.10) 10^6/uL Hgb 9.3 L (14.0-18.0) g/dL Hct 27.9 L (42.0-52.0) % MCV 93.9 (80.0-94.0) fL MCH 31.3 H (27.0-31.0) pg MCHC 33.3 (32.0-36.0) g/dL RDW 13.7 (12.0-15.0) % Plt Count 102 L (130-450) 10^3/uL MPV 9.2 (7.4-11.4) fL Neut # (Auto) 6.2 (1.5-6.6) 10^3/uL Lymph # (Auto) 0.9 L (1.5-3.5) 10^3/uL [place]assen # (Auto) 0.7 (0.0-1.0) 10^3/uL Eos # (Auto) 0.0 (0.0-0.7) 10^3/uL Baso # (Auto) 0.0 (0.0-0.1) 10^3/uL Absolute Nucleated RBC 0.00 x10^3/uL Nucleated RBC % 0.0 /100WBC Sodium 135 (135-145) mmol/L Potassium 3.8 (3.5-5.0) mmol/L Chloride 107 (101-111) mmol/L Carbon Dioxide 21 (21-32) mmol/L Anion Gap 7.0 (6-13) BUN 32 H (6-20) mg/dL Creatinine 0.9 (0.6-1.2) mg/dL Estimated GFR (MDRD) 81 L (>89) Glucose 125 H (70-100) mg/dL Lactic Acid (0.5-2.2) mmol/L Calcium 8.5 (8.5-10.3) mg/dL Total Bilirubin (0.2-1.0) mg/dL AST (10-42) IU/L ALT (10-60) IU/L Alkaline Phosphatase (42-121) IU/L Total Protein (6.7-8.2) g/dL Albumin (3.2-5.5) g/dL Globulin (2.1-4.2) g/dL Albumin/Globulin Ratio (1.0-2.2) Lipase (22-51) U/L TSH (0.34-5.60) uIU/mL Urine Color Urine Clarity (CLEAR) Urine pH (5.0-7.5) PH Ur Specific [place] (1.002-1.030) Urine Protein (NEGATIVE) mg/dL Urine Glucose (UA) (NEGATIVE) mg/dL Urine Ketones (NEGATIVE) mg/dL Urine Occult Blood (NEGATIVE) Urine Nitrite (NEGATIVE) Urine Bilirubin (NEGATIVE) Urine Urobilinogen (NORMAL) E.U./dL Ur Leukocyte Esterase (NEGATIVE) Urine RBC (0-5) /HPF Urine WBC (0-3) /HPF Urine WBC Clumps Ur Squamous Epith Cells (<= Few) Urine Bacteria (None Seen) /HPF Ur Microscopic Review Urine Culture Comments Influenza A (Rapid) Negative (Negative) Influenza B (Rapid) Negative (Negative) 12/13/19 12/13/19 12/13/19 Range/Units 20:27 19:38 19:30 WBC (4.8-10.8) x10^3/uL RBC (4.70-6.10) 10^6/uL Hgb (14.0-18.0) g/dL Hct (42.0-52.0) % MCV (80.0-94.0) fL MCH (27.0-31.0) pg MCHC (32.0-36.0) g/dL RDW (12.0-15.0) % Plt Count (130-450) 10^3/uL MPV (7.4-11.4) fL Neut # (Auto) (1.5-6.6) 10^3/uL Lymph # (Auto) (1.5-3.5) 10^3/uL Lassen # (Auto) (0.0-1.0) 10^3/uL Eos # (Auto) (0.0-0.7) 10^3/uL Baso # (Auto) (0.0-0.1) 10^3/uL Absolute Nucleated RBC x10^3/uL Nucleated RBC % /100WBC Sodium (135-145) mmol/L Potassium (3.5-5.0) mmol/L Chloride (101-111) mmol/L Carbon Dioxide (21-32) mmol/L Anion Gap (6-13) BUN (6-20) mg/dL Creatinine (0.6-1.2) mg/dL Estimated GFR (MDRD) (>89) Glucose (70-100) mg/dL Lactic Acid 1.4 (0.5-2.2) mmol/L Calcium (8.5-10.3) mg/dL Total Bilirubin (0.2-1.0) mg/dL AST (10-42) IU/L ALT (10-60) IU/L Alkaline Phosphatase (42-121) IU/L Total Protein (6.7-8.2) g/dL Albumin (3.2-5.5) g/dL Globulin (2.1-4.2) g/dL Albumin/Globulin Ratio (1.0-2.2) Lipase (22-51) U/L TSH 1.45 (0.34-5.60) uIU/mL Urine Color YELLOW Urine Clarity CLEAR (CLEAR) Urine pH 7.0 (5.0-7.5) PH Ur Specific [place] 1.015 (1.002-1.030) Urine Protein NEGATIVE (NEGATIVE) mg/dL Urine Glucose (UA) NEGATIVE (NEGATIVE) mg/dL Urine Ketones NEGATIVE (NEGATIVE) mg/dL Urine Occult Blood SMALL H (NEGATIVE) Urine Nitrite NEGATIVE (NEGATIVE) Urine Bilirubin NEGATIVE (NEGATIVE) Urine Urobilinogen 0.2 (NORMAL) (NORMAL) E.U./dL Ur Leukocyte Esterase NEGATIVE (NEGATIVE) Urine RBC 11-25 H (0-5) /HPF Urine WBC 4-5 (0-3) /HPF Urine WBC Clumps PRESENT Ur Squamous Epith Cells NONE SEEN (<= Few) Urine Bacteria Rare (None Seen) /HPF Ur Microscopic Review INDICATED Urine Culture Comments NOT INDICATED Influenza A (Rapid) (Negative) Influenza B (Rapid) (Negative) 12/13/19 12/13/19 Range/Units 19:30 19:30 WBC 8.4 (4.8-10.8) x10^3/uL RBC 3.53 L (4.70-6.10) 10^6/uL Hgb 11.4 L (14.0-18.0) g/dL Hct 34.1 L (42.0-52.0) % MCV 96.6 H (80.0-94.0) fL MCH 32.3 H (27.0-31.0) pg MCHC 33.4 (32.0-36.0) g/dL RDW 13.6 (12.0-15.0) % Plt Count 128 L (130-450) 10^3/uL MPV 9.5 (7.4-11.4) fL Neut # (Auto) 7.0 H (1.5-6.6) 10^3/uL Lymph # (Auto) 0.8 L (1.5-3.5) 10^3/uL Lassen # (Auto) 0.5 (0.0-1.0) 10^3/uL Eos # (Auto) 0.0 (0.0-0.7) 10^3/uL Baso # (Auto) 0.0 (0.0-0.1) 10^3/uL Absolute Nucleated RBC 0.00 x10^3/uL Nucleated RBC % 0.0 /100WBC Sodium 135 (135-145) mmol/L Potassium 4.8 (3.5-5.0) mmol/L Chloride 101 (101-111) mmol/L Carbon Dioxide 24 (21-32) mmol/L Anion Gap 10.0 (6-13) BUN 42 H (6-20) mg/dL Creatinine 1.2 (0.6-1.2) mg/dL Estimated GFR (MDRD) 58 L (>89) Glucose 106 H (70-100) mg/dL Lactic Acid (0.5-2.2) mmol/L Calcium 9.4 (8.5-10.3) mg/dL Total Bilirubin 1.3 H (0.2-1.0) mg/dL AST 39 (10-42) IU/L ALT 38 (10-60) IU/L Alkaline Phosphatase 49 (42-121) IU/L Total Protein 7.2 (6.7-8.2) g/dL Albumin 4.4 (3.2-5.5) g/dL Globulin 2.8 (2.1-4.2) g/dL Albumin/Globulin Ratio 1.6 (1.0-2.2) Lipase 44 (22-51) U/L TSH (0.34-5.60) uIU/mL Urine Color Urine Clarity (CLEAR) Urine pH (5.0-7.5) PH Ur Specific [place] (1.002-1.030) Urine Protein (NEGATIVE) mg/dL Urine Glucose (UA) (NEGATIVE) mg/dL Urine Ketones (NEGATIVE) mg/dL Urine Occult Blood (NEGATIVE) Urine Nitrite (NEGATIVE) Urine Bilirubin (NEGATIVE) Urine Urobilinogen (NORMAL) E.U./dL Ur Leukocyte Esterase (NEGATIVE) Urine RBC (0-5) /HPF Urine WBC (0-3) /HPF Urine WBC Clumps Ur Squamous Epith Cells (<= Few) Urine Bacteria (None Seen) /HPF Ur Microscopic Review Urine Culture Comments Influenza A (Rapid) (Negative) Influenza B (Rapid) (Negative) ABX Reporting Has patient been on IV antibiotics over the past 48 hours?: Yes Assessment/Plan - Problem List (1) Pneumonia Impression: Patient started on 2g Rocephin IV and 500mg azithromycin IV. Day #2 Still on 2 l NC and WBC nml, no fever now. Tachycardia has resolved from admission. Continue supplemental oxygen via nasal cannula 2 L. IV hydration with normal saline at 100 mils per hour started. He is eating well. Stop IVF today. COVID-19 testing pending. Influenza test pending. Tylenol for fever. Qualifiers: Pneumonia type: due to unspecified organism Laterality: left Lung location: lower lobe of lung Qualified Code(s): J18.9 - Pneumonia, unspecified organism (2) Hypertension Conclusion/Plan: Patient is on atenolol 50 mg p.o. daily. Medication reconciliation done by pharmacy. List is now up-to-date. Will resume all his home meds as appropriate. (3) Hyperlipidemia Conclusion/Plan: On atorvastatin 10 mg p.o. every afternoon. (4) COPD (chronic obstructive pulmonary disease) Conclusion/Plan: Not in exacerbation. Will order an inhaler to be administered as needed. Will subsequently order breathing treatment once COVID-19 ruled out (5) CAD (coronary artery disease) Conclusion/Plan: Patient is on aspirin, atenolol and atorvastatin.Those will be resumed today now that medication reconciliation has occurred (6) Hx of seizure disorder Conclusion/Plan: Patient is on Keppra 1000 mg p.o. twice daily. Resume today (7) Hypothyroidism Conclusion/Plan: Patient is on levothyroxine 75 mcg p.o. daily. (8) amyotrophic lateral sclerosis Patient is followed by neurology at [facility]. He also is followed by palliative care service here. Will do advanced care planning conversation and document under separate note. (9) Anemia Anemia has been gradually progressively getting worse. In 2012 he was 13.4 g of hemoglobin. In 2016 he was 12.2. By May 2019 he was 10.4. Today he is 9.3. Indices show mild macrocytosis with MCV varying between 92 and 97. Plan: Anemia panel
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
[2019-12-14] MEDS: METOPROLOL SUCCINATE 50 MG TABLET PO SCH ×2 (14:21→21:45)
[2019-12-14] MEDS: AZITHROMYCIN INJ 500 MG in SODIUM CHLORIDE 0.9% 250 ML IV SCH (19:49)
[2019-12-14] MEDS: levETIRAcetam 250 MG TABLET PO SCH ×2 (21:45→21:56)
[2019-12-14] MEDS: CALCIUM CARBONATE CHEW 500 MG TABLET PO SCH (21:45)
[2019-12-14] MEDS: ATORVASTATIN 10 MG TABLET PO SCH (21:45)
[2019-12-14] MEDS: cefTRIAXone 2 GM in SODIUM CHLORIDE 0.9% MINIBAG 100 ML IV SCH (21:46)
[2019-12-15] MEDS: SODIUM CHLORIDE FLUSH 0.9% 10 ML SYRINGE IVP SCH ×3 (00:14→17:58)
[2019-12-15] MEDS: SODIUM CHLORIDE 0.9% 1,000 ML IV SCH ×3 (04:32→22:55)
[2019-12-15 06:04] LABS: BASOPHILS % (AUTO) 0.4 %; EOSINOPHILS # (AUTO) 0.1 10^3/uL (0.0-0.7); EOSINOPHILS % (AUTO) 2.2 %; LYMPHOCYTES # (AUTO) 0.7 10^3/uL (1.5-3.5); LYMPHOCYTES % (AUTO) 15.8 %; MEAN CORPUSCULAR HEMOGLOBIN 32.1 pg (27.0-31.0); MEAN CORPUSCULAR HGB CONC 33.3 g/dL (32.0-36.0); MEAN CORPUSCULAR VOLUME 96.4 fL (80.0-94.0); MEAN PLATELET VOLUME 8.9 fL (7.4-11.4); MONOCYTES # (AUTO) 0.6 10^3/uL (0.0-1.0); MONOCYTES % (AUTO) 12.3 %; NEUTROPHILS # (AUTO) 3.1 10^3/uL (1.5-6.6); NEUTROPHILS % (AUTO) 68.6 %; PLT - PLATELET COUNT 94 10^3/uL (130-450); RED CELL DISTRIBUTION WIDTH 13.6 % (12.0-15.0); WHITE BLOOD COUNT 4.6 x10^3/uL (4.8-10.8)
[2019-12-15 06:12] LABS: CALCIUM 8.5 mg/dL (8.5-10.3); CREATININE 0.9 mg/dL (0.6-1.2)
[2019-12-15] MEDS: LEVOTHYROXINE 75 MCG TABLET PO SCH (06:12)
[2019-12-15] MEDS: PANTOPRAZOLE 40 MG TABLET PO SCH (06:12)
[2019-12-15 08:30] LABS: % IRON SATURATION 14 % (20-50); IRON 26 ug/dL (45-182); TOTAL IRON BINDING CAPACITY 192 ug/dL (250-450); TRANSFERRIN 137 mg/dL (180-329)
[2019-12-15 08:41] LABS: FERRITIN 171.6 ng/mL (23.9-336.2)
[2019-12-15 08:44] LABS: FOLATE 12.42 ng/mL (5.90 - >24.8)
[2019-12-15] MEDS: CALCIUM CARBONATE CHEW 500 MG TABLET PO SCH ×2 (08:44→20:44)
[2019-12-15] MEDS: levETIRAcetam 250 MG TABLET PO SCH ×2 (08:44→20:44)
[2019-12-15] MEDS: ASPIRIN 325 MG TABLET PO SCH (08:44)
[2019-12-15] MEDS: METOPROLOL SUCCINATE 50 MG TABLET PO SCH ×2 (08:44→20:44)
[2019-12-15] MEDS: SERTRALINE 25 MG TABLET PO SCH (08:44)
--- NOTE | 2019-12-15 11:16 | PROVIDER PROGRESS NOTE ---
Subjective - Prog Note Date Prog Note Date: 12/15/19 - Subjective Subjective: He reports feeling improved today. Still has a level of a cough. Denies any dyspnea or chest pain. Current Medications - Current Medications Current Medications: Active Medications Acetaminophen (Tylenol) 650 mg PO Q6HR PRN PRN Reason: Pain 1 to 4 Albuterol (Mdi: Albuterol) 2 puffs INH Q4H PRN PRN Reason: Dyspnea Aspirin (Soren) 325 mg PO DAILY [facility] Last Admin: 12/15/19 08:44 Dose: 325 mg Documented by: Atorvastatin Calcium (Lipitor) 10 mg PO QPM [facility] Last Admin: 12/14/19 21:45 Dose: 10 mg Documented by: Calcium Carbonate/Glycine (Tums) 500 mg PO BID [facility] Last Admin: 12/15/19 08:44 Dose: 500 mg Documented by: Enoxaparin Sodium (Lovenox) 40 mg SUBQ DAILY [facility] Last Admin: 12/14/19 08:25 Dose: 40 mg Documented by: Sodium Chloride (Normal Saline 0.9%) 1,000 mls @ 100 mls/hr IV .Q10H [facility] Last Admin: 12/15/19 04:32 Dose: 100 mls/hr Documented by: Azithromycin 500 mg/ Sodium (Chloride) 250 mls @ 250 mls/hr IV Q24H [facility] Stop: 12/15/19 20:59 Last Infusion: 12/14/19 20:49 Dose: Infused Documented by: Ceftriaxone Sodium 2 gm/ (Sodium Chloride) 100 mls @ 200 mls/hr IV Q24H [facility] Last Infusion: 12/14/19 22:16 Dose: Infused Documented by: Levetiracetam (Keppra) 1,000 mg PO BID [facility] Last Admin: 12/15/19 08:44 Dose: 1,000 mg Documented by: Levothyroxine Sodium (Synthroid) 75 mcg PO QDAC [facility] Last Admin: 12/15/19 06:12 Dose: 75 mcg Documented by: Metoprolol Succinate (Toprol Xl) 50 mg PO BID [facility] Last Admin: 12/15/19 08:44 Dose: 50 mg Documented by: Pantoprazole Sodium (Protonix) 40 mg PO QDAC [facility] Last Admin: 12/15/19 06:12 Dose: 40 mg Documented by: Sertraline HCl (Zoloft) 25 mg PO DAILY [facility] Last Admin: 12/15/19 08:44 Dose: 25 mg Documented by: Sodium Chloride (Normal Saline Flush 0.9%) 10 ml IVP PRN PRN PRN Reason: NEEDED PER PROVIDER ORDERS Sodium Chloride (Normal Saline Flush 0.9%) 10 ml IVP 0100,0900,1700 [facility] Last Admin: 12/15/19 08:44 Dose: Not Given Documented by: Aspirin 325 mg PO DAILY 08/20/15 Levothyroxine [Synthroid] 75 mcg PO DAILY 08/20/15 Nitroglycerin [Nitrostat] 0.4 mg [id number] TITR PRN 07/18/16 Atorvastatin [Lipitor] 10 mg PO QPM 09/11/19 Calcium Carbonate [Calcium] 600 mg PO BID 09/11/19 Fluticasone Propion/Salmeterol [Wixela 100-50 Inhub] 1 puffs IN BID 09/11/19 Sertraline [Zoloft] 25 mg PO DAILY 11/19/19 Metoprolol Succinate 50 mg PO BID 12/14/19 levETIRAcetam [Levetiracetam] 1,000 mg PO BID 12/14/19 Objective - Vital Signs/Intake & Output Reviewed Vital Signs: Yes Vital Signs: Vital Signs x48h Temp Pulse Pulse Resp BP BP Pulse Ox 12/15/19 08:35 36.8 C 85 18 113/79 98 12/15/19 04:28 36.7 C 64 20 116/77 98 Intake & Output: Intake & Output 12/12/19 12/13/19 12/14/19 12/15/19 23:59 23:59 23:59 23:59 Intake Total 1380 3650 915 Output Total 400 1250 Balance 980 2400 915 - Objective General Appearance: positive: No acute distress, Mild distress Eyes Bilateral: positive: Conjunctivae nml ENT: positive: ENT inspection nml, Other (Nasal cannula in place.) Neck: positive: Nml inspection Respiratory: positive: No respiratory distress, Rhonchi (Left base.). negative: Wheezes, Rales Cardiovascular: positive: Regular rate & rhythm, No murmur. negative: Tachycardia, Bradycardia Abdomen: positive: Non-tender, No distention. negative: Tenderness Skin: positive: Warm, Dry Extremities: positive: No pedal edema Neurologic/Psychiatric: positive: Oriented x3, Motor nml - Lab Results Fish Bones: 12/15/19 05:55 12/15/19 05:55 Other Labs: Lab Results x24hrs 12/15/19 12/15/19 12/15/19 Range/Units 05:55 05:55 05:55 WBC (4.8-10.8) x10^3/uL RBC (4.70-6.10) 10^6/uL Hgb (14.0-18.0) g/dL Hct (42.0-52.0) % MCV (80.0-94.0) fL MCH (27.0-31.0) pg MCHC (32.0-36.0) g/dL RDW (12.0-15.0) % Plt Count (130-450) 10^3/uL MPV (7.4-11.4) fL Neut # (Auto) (1.5-6.6) 10^3/uL Lymph # (Auto) (1.5-3.5) 10^3/uL Maury # (Auto) (0.0-1.0) 10^3/uL Eos # (Auto) (0.0-0.7) 10^3/uL Baso # (Auto) (0.0-0.1) 10^3/uL Absolute Nucleated RBC x10^3/uL Nucleated RBC % /100WBC Sodium 140 (135-145) mmol/L Potassium 3.7 (3.5-5.0) mmol/L Chloride 112 H (101-111) mmol/L Carbon Dioxide 21 (21-32) mmol/L Anion Gap 7.0 (6-13) BUN 24 H (6-20) mg/dL Creatinine 0.9 (0.6-1.2) mg/dL Estimated GFR (MDRD) 81 L (>89) Glucose 93 (70-100) mg/dL Calcium 8.5 (8.5-10.3) mg/dL Iron 26 L (45-182) ug/dL TIBC 192 L (250-450) ug/dL % Saturation 14 L (20-50) % Transferrin 137 L (180-329) mg/dL Ferritin 171.6 (23.9-336.2) ng/mL Vitamin B12 315 (180-914) pg/mL Folate 12.42 (5.90 - >24.8) ng/mL Influenza A (Rapid) (Negative) Influenza B (Rapid) (Negative) 12/15/19 12/14/19 Range/Units 05:55 12:10 WBC 4.6 L (4.8-10.8) x10^3/uL RBC 2.80 L (4.70-6.10) 10^6/uL Hgb 9.0 L (14.0-18.0) g/dL Hct 27.0 L (42.0-52.0) % MCV 96.4 H (80.0-94.0) fL MCH 32.1 H (27.0-31.0) pg MCHC 33.3 (32.0-36.0) g/dL RDW 13.6 (12.0-15.0) % Plt Count 94 L (130-450) 10^3/uL MPV 8.9 (7.4-11.4) fL Neut # (Auto) 3.1 (1.5-6.6) 10^3/uL Lymph # (Auto) 0.7 L (1.5-3.5) 10^3/uL Maury # (Auto) 0.6 (0.0-1.0) 10^3/uL Eos # (Auto) 0.1 (0.0-0.7) 10^3/uL Baso # (Auto) 0.0 (0.0-0.1) 10^3/uL Absolute Nucleated RBC 0.00 x10^3/uL Nucleated RBC % 0.0 /100WBC Sodium (135-145) mmol/L Potassium (3.5-5.0) mmol/L Chloride (101-111) mmol/L Carbon Dioxide (21-32) mmol/L Anion Gap (6-13) BUN (6-20) mg/dL Creatinine (0.6-1.2) mg/dL Estimated GFR (MDRD) (>89) Glucose (70-100) mg/dL Calcium (8.5-10.3) mg/dL Iron (45-182) ug/dL TIBC (250-450) ug/dL % Saturation (20-50) % Transferrin (180-329) mg/dL Ferritin (23.9-336.2) ng/mL Vitamin B12 (180-914) pg/mL Folate (5.90 - >24.8) ng/mL Influenza A (Rapid) Negative (Negative) Influenza B (Rapid) Negative (Negative) ABX Reporting Has patient been on IV antibiotics over the past 48 hours?: Yes Assessment/Plan - Problem List (1) Community acquired pneumonia Impression: Imaging concerning for left lower lobe pneumonia. Presented with fever, cough. He remains on 2 L of oxygen but his saturations have improved to the high 90s. Today is day 3 of azithromycin IV and this will be discontinued. We will continue ceftriaxone while he is hospitalized and will transition to oral Ceftin tomorrow for likely discharge. Continue to wean his supplemental oxygen. He will need an exercise desaturation test prior to discharge. COVID test is pending. We will repeat chest x-ray tomorrow. Qualifiers: Laterality: left Lung location: lower lobe of lung Qualified Code(s): J18.9 - Pneumonia, unspecified organism (2) COPD (chronic obstructive pulmonary disease) Impression: Stable and not in exacerbation. We will continue his home inhalers and oxygen supplementation as needed. Exercise desaturation test prior to discharge. He normally wears 2 L of oxygen at night at home. (3) Hx of seizure disorder Impression: He is on Keppra at home which will be continued. (4) Hypertension Impression: His blood pressure has been well controlled on his metoprolol which will be continued. (5) Hypothyroidism Impression: Continue home Synthroid. (6) CAD (coronary artery disease) Impression: Stable. We will continue his home aspirin, Lipitor, metoprolol. (7) Amyotrophic lateral sclerosis (ALS) Impression: Stable. Continue outpatient follow-up with his neurologist.
[2019-12-15] MEDS: ENOXAPARIN 40 MG/0.4 ML SYRINGE SUBQ SCH (11:46)
[2019-12-15] MEDS: CHOLECALCIFEROL 25 MCG TABLET PO SCH (19:34)
[2019-12-15] MEDS: AZITHROMYCIN INJ 500 MG in SODIUM CHLORIDE 0.9% 250 ML IV SCH (19:34)
[2019-12-15] MEDS: ATORVASTATIN 10 MG TABLET PO SCH (20:44)
[2019-12-15] MEDS: cefTRIAXone 2 GM in SODIUM CHLORIDE 0.9% MINIBAG 100 ML IV SCH (20:44)
[2019-12-16] MEDS: SODIUM CHLORIDE FLUSH 0.9% 10 ML SYRINGE IVP SCH ×2 (00:46→08:50)
[2019-12-16] MEDS: SODIUM CHLORIDE 0.9% 1,000 ML IV SCH (04:20)
[2019-12-16 04:57] LABS: BASOPHILS % (AUTO) 0.5 %; EOSINOPHILS # (AUTO) 0.1 10^3/uL (0.0-0.7); EOSINOPHILS % (AUTO) 2.9 %; HGB - HEMOGLOBIN 9.1 g/dL (14.0-18.0); LYMPHOCYTES # (AUTO) 0.6 10^3/uL (1.5-3.5); LYMPHOCYTES % (AUTO) 15.2 %; MEAN CORPUSCULAR HEMOGLOBIN 32.3 pg (27.0-31.0); MEAN CORPUSCULAR HGB CONC 33.3 g/dL (32.0-36.0); MEAN CORPUSCULAR VOLUME 96.8 fL (80.0-94.0); MEAN PLATELET VOLUME 9.2 fL (7.4-11.4); MONOCYTES # (AUTO) 0.4 10^3/uL (0.0-1.0); MONOCYTES % (AUTO) 10.1 %; NEUTROPHILS # (AUTO) 2.9 10^3/uL (1.5-6.6); NEUTROPHILS % (AUTO) 70.6 %; PLT - PLATELET COUNT 104 10^3/uL (130-450); RED BLOOD COUNT 2.82 10^6/uL (4.70-6.10); RED CELL DISTRIBUTION WIDTH 13.8 % (12.0-15.0); WHITE BLOOD COUNT 4.1 x10^3/uL (4.8-10.8)
[2019-12-16 05:05] LABS: CALCIUM 8.7 mg/dL (8.5-10.3)
[2019-12-16] MEDS: PANTOPRAZOLE 40 MG TABLET PO SCH (06:24)
[2019-12-16] MEDS: LEVOTHYROXINE 75 MCG TABLET PO SCH (06:24)
[2019-12-16] MEDS ORDERED: POTASSIUM CHLORIDE 20 MEQ TABLET PO SCH (07:19)
--- NOTE | 2019-12-16 07:33 | Discharge Plan ---
Discharge Plan Problem Reviewed?: Yes Disposition: Home Health Service Condition: Stable Prescriptions: cefUROXime axetiL [Ceftin] 500 mg PO BID #16 tablet Diet: Cardiac Activity Restrictions: Activity as Tolerated Instruction Topics: Cefuroxime tablets, Pneumonia Dc, COVID-19 [facility], COVID-19 [facility] Department Statement Health Concerns: You were seen in the hospital because you had pneumonia. You were treated with antibiotics with improvement. You are no longer requiring oxygen and you have been fever free for over 24 hours. You were checked for COVID-19 and this was negative. You may continue to use the oxygen you have at home when you sleep at night. You do not need this during the day or with activity. Plan of Treatment: Please take the antibiotic, Ceftin 500 mg twice daily for 5 more days to complete 7 days of therapy for your pneumonia. There were no other changes made to your medications. Care Goals: Please return to the emergency department if you develop any worsening fevers, chills, shortness of breath or chest pain. Assessment: The patient expressed understanding of the treatment plan. Additional Instructions or Follow Up instructions: Please follow-up with your primary care physician within 1 week. It is recommended you have a repeat chest x-ray in 2-3 weeks to ensure that your pneumonia has resolved. No Smoking: If you smoke, Please STOP! Call for help. Follow-up with: Estelita Campos PA-C [Primary Care Provider] -
[2019-12-16] MEDS: CHOLECALCIFEROL 25 MCG TABLET PO SCH (08:45)
[2019-12-16] MEDS: CALCIUM CARBONATE CHEW 500 MG TABLET PO SCH (08:46)
[2019-12-16] MEDS: METOPROLOL SUCCINATE 50 MG TABLET PO SCH (08:46)
[2019-12-16] MEDS: ENOXAPARIN 40 MG/0.4 ML SYRINGE SUBQ SCH (08:47)
[2019-12-16] MEDS: ASPIRIN 325 MG TABLET PO SCH (08:47)
[2019-12-16] MEDS: levETIRAcetam 250 MG TABLET PO SCH (08:47)
[2019-12-16] MEDS ORDERED: LACTOBACILLUS RHAMNOSUS GG CAPSULE PO SCH (09:00)
[2019-12-16] MEDS: SERTRALINE 25 MG TABLET PO SCH (09:01)
--- NOTE | 2019-12-16 10:20 | DISCHARGE SUMMARY ---
"Discharge Summary Admit Date: 12/13/19 Discharge Date: 12/16/19 Discharging Provider: Augustus Brooke Primary Care Provider: Estelita Campos Code Status: Do Not Attempt Resuscitation Condition at Discharge: Stable Discharge Disposition: Home Health Service - DIAGNOSES Admission Diagnoses: Pneumonia Hypertension Hyperlipidemia COPD Coronary artery disease History of seizure disorder Hypothyroidism Discharge Diagnoses with Status of Each Condition: Community acquired pneumonia - improving. COPD - stable. Hypertension - stable. Hypothyroidism - stable. Coronary artery disease - stable. Ametropic lateral sclerosis - stable. - HPI History of Present Illness: H&P per Dr. Trinh: Patient is an 79-year-old male with history of ALS, dementia, COPD, hypertension, CAD, hypothyroidism who presented to the ED via EMS. The patient is very hard of hearing. As a result this history was obtained from his over the phone. She reported that around dinnertime the patient complained of not feeling well. He then went to lay on the couch and was shivering. He complained of being very cold. His eyes were glassy at the time. She took his temperature and it was 39.9 C. Due to the patient's ALS he has little strength in his legs. His was not able to get him to the car to bring him to the emergency department. As a result she called EMS who brought the patient to the ED. His temperature in the ED was 38.1 C. He was also tachycardic with a heart rate of 124. Work-up in the ED included a chest x-ray which showed left lower lobe pneumonia. As a result he was presented for admission. At the time of admission the patient was resting comfortably in bed. He is on oxygen 2 L nasal cannula which is his baseline oxygen at home. He uses this as needed every night. On auscultation of his lungs he sounds rhonchorous. The rest of his history is unremarkable. - CONSULTS | PROCEDURES Consultations: PT, OT, Social Work - HOSPITAL COURSE Hospital Course: He was admitted to the floor for community-acquired pneumonia. He was treated with azithromycin IV and ceftriaxone IV initially. He completed 3 days of treatment with azithromycin and the ceftriaxone was de-escalate to oral Ceftin. He initially required 2 L of oxygen but is now saturating well on room air. He was checked for COVID-19 and this was negative. Blood cultures on hospital day 4 came back positive 1 out of 4 bottles for coag negative staph which was felt to be a contaminant. He was discharged on oral Ceftin 500 mg twice daily for 4 more days to complete 7 days of antibiotic therapy. He underwent an exercise desaturation test prior to discharge which showed that he does not require oxygen. He was asked to resume all of his home medication except for the Keppra as the patient states that he has not been taking this at home and if was supposed be discontinued off of his list. He was asked to follow-up with his primary care provider within 1 week. He will need a repeat chest x-ray in 2 to 3 weeks to ensure resolution of the pneumonia. - ALLERGIES Allergies/Adverse Reactions: Allergies Allergy/AdvReac Type Severity Reaction Status Date / Time carbamazepine AdvReac Unknown Verified 09/11/19 13:13 iodine AdvReac Unknown Verified 09/11/19 13:13 shellfish derived AdvReac Unknown Verified 09/11/19 13:13 - MEDICATIONS Home Medications: Ambulatory Orders Medication Instructions Recorded Confirmed Aspirin 325 mg PO DAILY 08/20/15 12/14/19 Levothyroxine [Synthroid] 75 mcg PO DAILY 08/20/15 12/14/19 Nitroglycerin [Nitrostat] 0.4 mg [id number] TITR PRN 07/18/16 12/14/19 Atorvastatin [Lipitor] 10 mg PO QPM 09/11/19 12/14/19 Calcium Carbonate [Calcium] 600 mg PO BID 09/11/19 12/14/19 Fluticasone Propion/Salmeterol 1 puffs IN BID 09/11/19 12/14/19 [Wixela 100-50 Inhub] Sertraline [Zoloft] 25 mg PO DAILY 11/19/19 12/14/19 Metoprolol Succinate 50 mg PO BID 12/14/19 12/14/19 cefUROXime axetiL [Ceftin] 500 mg PO BID #16 tablet 12/16/19 - PHYSICAL EXAM AT DISCHARGE General Appearance: positive: No acute distress, Alert Eyes Bilateral: positive: Normal inspection ENT: positive: ENT inspection nml Neck: positive: Nml inspection Respiratory: positive: No respiratory distress, Other (Diminished breath sounds bilaterally.). negative: Wheezes, Rales, Rhonchi Cardiovascular: positive: Regular rate & rhythm, No murmur. negative: Tachycardia, Bradycardia, Systolic murmur Abdomen: positive: Non-tender, No distention. negative: Tenderness, Guarding, Rebound Skin: positive: Warm, Dry Extremities: positive: Full ROM, No pedal edema Neurologic/Psychiatric: positive: Other (No focal motor deficits.). negative: Disoriented to person, Disoriented to place, Disoriented to time Physical Exam Other/Comments: Vital Signs - 24 hr 12/15/19 12/15/19 12/16/19 16:11 20:50 00:00 Temperature 36.3 C L 36.6 C 36.6 C Heart Rate Heart Rate [ 65 64 Brachial] Heart Rate [ 118 H Monitoring electrodes] Respiratory 16 20 18 Rate Blood Pressure 123/70 119/88 H [Left Brachial artery] Blood Pressure 128/65 [Right Brachial artery] O2 Saturation 98 98 95 12/16/19 12/16/19 12/16/19 03:55 07:47 07:53 Temperature 37.1 C 37 C Heart Rate Heart Rate [ Brachial] Heart Rate [ 64 93 Monitoring electrodes] Respiratory 18 20 Rate Blood Pressure 114/73 [Left Brachial artery] Blood Pressure 124/73 [Right Brachial artery] O2 Saturation 94 95 12/16/19 12/16/19 10:20 12:46 Temperature 36.8 C Heart Rate 132 H Heart Rate [ Brachial] Heart Rate [ 85 Monitoring electrodes] Respiratory 18 Rate Blood Pressure [Left Brachial artery] Blood Pressure 120/74 [Right Brachial artery] O2 Saturation 97 Oxygen O2 Source Room air Oxygen Flow Rate 2 - LABS Result Diagrams: 12/16/19 04:25 12/16/19 04:25 - DIAGNOSTIC IMAGING Diagnostic Imaging Results: Final report reviewed - FOLLOW UP Follow Up: He was asked to follow-up with his primary care provider within 1 week. - TIME SPENT Time Spent in Discharge (Minutes): 35"
[2019-12-16 12:47] VITALS: BP 120/74
== END 2019-12-16 12:25 | disposition home health service (06) | DRG 194 ==
LOC: ED 19:30 → MS2 20:52
PROVIDERS: ADMIT Internal Medicine; ATTEND Internal Medicine
DX: J18.9 Pneumonia, unspecified organism (principal); J44.0 Chronic obstructive pulmonary disease with (acute) lower respiratory infection; E78.00 Pure hypercholesterolemia, unspecified; G12.21 Amyotrophic lateral sclerosis; R41.9 Unspecified symptoms and signs involving cognitive functions and awareness; G31.09 Other frontotemporal neurocognitive disorder; F02.80 Dementia in other diseases classified elsewhere, unspecified severity, without behavioral disturbance, psychotic disturbance, mood disturbance, and anxiety; I10 Essential (primary) hypertension; E03.9 Hypothyroidism, unspecified; E78.5 Hyperlipidemia, unspecified; D64.9 Anemia, unspecified; G40.909 Epilepsy, unspecified, not intractable, without status epilepticus; Z74.09 Other reduced mobility; H91.90 Unspecified hearing loss, unspecified ear; Z20.828 Contact with and (suspected) exposure to other viral communicable diseases; Z66 Do not resuscitate; Z96.89 Presence of other specified functional implants; Z79.82 Long term (current) use of aspirin; Z91.81 History of falling; Z79.51 Long term (current) use of inhaled steroids; Z79.899 Other long term (current) drug therapy; I25.2 Old myocardial infarction; Z95.5 Presence of coronary angioplasty implant and graft; Z87.891 Personal history of nicotine dependence; Z86.69 Personal history of other diseases of the nervous system and sense organs
CPT/HCPCS: 36415; 51701; 71045; 80048; 80053; 81001; 81599; 82607; 82728; 82746; 83540; 83605; 83690; 84443; 84466; 85025; 87040; 87077; 87181; 87275; 87276; 93005; 94761; 97116; 97161; 99285; A9270; J1650; 81003; 87086

== ENCOUNTER 2019-12-17 14:33 | Outpatient (CLI) | payer MEDICARE, OTHER ==
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
== END 2019-12-17 14:34 | disposition home or self-care (01) ==
LOC: PC 14:33
PROVIDERS: ATTEND Nurse Practitioner Family
DX: Z51.5 Encounter for palliative care (principal); G12.21 Amyotrophic lateral sclerosis; R41.9 Unspecified symptoms and signs involving cognitive functions and awareness; J44.9 Chronic obstructive pulmonary disease, unspecified; R45.1 Restlessness and agitation; I10 Essential (primary) hypertension; G40.909 Epilepsy, unspecified, not intractable, without status epilepticus; E03.9 Hypothyroidism, unspecified; E87.5 Hyperkalemia; J18.9 Pneumonia, unspecified organism; H91.90 Unspecified hearing loss, unspecified ear; Z66 Do not resuscitate; I25.2 Old myocardial infarction; Z79.82 Long term (current) use of aspirin; Z79.899 Other long term (current) drug therapy; Z95.5 Presence of coronary angioplasty implant and graft; Z95.828 Presence of other vascular implants and grafts; Z96.89 Presence of other specified functional implants; Z96.653 Presence of artificial knee joint, bilateral; H54.7 Unspecified visual loss; Z74.09 Other reduced mobility; R19.4 Change in bowel habit; R63.4 Abnormal weight loss
CPT/HCPCS: 99349

== ENCOUNTER 2019-12-30 07:33 | Outpatient (CLI) | payer MEDICARE, OTHER ==
--- NOTE | 2019-12-30 17:47 | XRAY Report ---
Reason: PNEUMONIA Procedure Date: 12/30/2019 Accession Number: [id number] / [id number] Procedure: WCP - Chest 2 View X-Ray CPT Code: 92953 Final Report FULL RESULT: PROCEDURE: Chest 2 View X-Ray INDICATIONS: PNEUMONIA TECHNIQUE: 2 view(s) of the chest. COMPARISON: None. FINDINGS: Surgical changes and devices: DIRECTOR [employer]NATIONAL shunt catheter. Lungs and pleura: No pleural effusions or pneumothorax. Patchy airspace opacity noted in the posterior aspect left lung base which is decreased in size compared to 12/13/2019 without complete resolution. Mediastinum: Mediastinal contours are normal. Heart size is normal. Bones and chest wall: No suspicious bony abnormalities. Soft tissues appear unremarkable. IMPRESSION: Small area of opacification posterior aspect left lung base decreased compared to 12/13/2019 compatible with postinflammatory scarring versus residual/resolving pneumonia. Reviewed by: Azul Holbrook MD, PhD on 12/30/2019 5:45 PM PDT Approved by: Azul Holbrook MD, PhD on 12/30/2019 5:45 PM PDT Station ID: [id number]
== END 2019-12-30 23:59 | disposition home or self-care (01) ==
LOC: DI.WCP 07:33
PROVIDERS: ATTEND Physician Assistant Medical
DX: R91.8 Other nonspecific abnormal finding of lung field (principal)
CPT/HCPCS: 71046

== ENCOUNTER 2020-01-19 10:14 | Outpatient (CLI) | payer MEDICARE, OTHER ==
--- NOTE | 2020-01-20 15:30 | XRAY Report ---
PROCEDURE: Chest 2 View X-Ray INDICATIONS: PNEUMONIA TECHNIQUE: 2 view(s) of the chest. COMPARISON: 12/30/2019, 12/13/2019. FINDINGS: Surgical changes and devices: Right-sided ventriculoperitoneal shunt tubing is unchanged in positioni ng. Lungs and pleura: Continued decrease in conspicuity of left mid and lower lung zone opacities compat ible with resolving pneumonia. Suggestion of persistent nodular densities in the left mid lung zone l ateral to the level of the aortic arch. These may represent overlapping bronchovascular structures. N ipple shadows are again noted. No pleural effusions or pneumothorax. Mediastinum: Mediastinal contours are normal. Heart size is normal. Bones and chest wall: No suspicious bony abnormalities. Soft tissues appear unremarkable. IMPRESSION: Continued decrease in conspicuity of left mid and lower lung zone opacities compatible with resolving pneumonia. Suggestion of possible nodular densities in the left midlung zone lateral to the level of the aortic arch. These may represent overlapping bronchovascular structures. Recommend continued cli nical and imaging follow-up with dedicated upright PA and lateral chest or chest CT. Reviewed by: Davonte Vidales MD on 01/19/2020 10:45 AM PDT Approved by: Davonte Vidales MD on 01/19/2020 10:45 AM PDT Station ID: [id number]
== END 2020-01-19 23:59 | disposition home or self-care (01) ==
LOC: DI.WCP 10:14
PROVIDERS: ATTEND Physician Assistant Medical
DX: R91.8 Other nonspecific abnormal finding of lung field (principal)
CPT/HCPCS: 71046

== ENCOUNTER 2020-01-20 13:22 | Outpatient (CLI) | payer MEDICARE, OTHER | END 2020-01-20 13:23 | disposition critical access hospital (66) | LOC: EMS 13:22 | PROVIDERS: ATTEND Surgery | DX: R41.82 Altered mental status, unspecified (principal); R42 Dizziness and giddiness | CPT/HCPCS: A0425; A0428 ==

== ENCOUNTER 2020-01-20 13:56 | Inpatient (IN) | payer MEDICARE, OTHER ==
--- NOTE | 2020-01-20 14:09 | ED Physician Documentation ---
PD HPI ALTERED MENTAL STATUS - Stated complaint Stated Complaint: AMS/DIZZY - History obtained from History obtained from: Patient, Family (spouse/SO) - History of Present Illness Timing - onset: How many days ago (3-4) Timing - duration: Days Timing - details: Abrupt onset (His states that she noticed the patient having more confusion with wandering answers to questions and seeming more off balance over the past 3 to 4 days. No noted injury in that timeframe. He states he did fall and hit his head 1 or 2 weeks ago. He does have some headache the past 3 days.) Quality / character: Confused Associated symptoms: Headache, Other (Apparently has had decreased appetite and oral intake the last 3 days). No: Fever, Dyspnea, Cough Contributing factors: Recent injury (Reportedly fell and hit his head 1 to 2 weeks ago but not more recent, per pt, but has poor memory.). No: Anticoagulated, Diabetic Basline status: Alert and oriented X 3, Walker Similar symptoms before: Diagnosis (Prior brain tumor surgery years ago and a shunt in place. Has some dementia related. However the current cognitive deficit is newer in the last few days) Recently seen: Admitted (Admitted at several weeks ago for pneumonia with improved symptoms. He has been feeling a little bit short of breath on activity and lightheaded the last several days) Review of Systems Constitutional: denies: Fever, Chills Nose: denies: Rhinorrhea / runny nose, Congestion Throat: denies: Sore throat Cardiac: denies: Chest pain / pressure, Palpitations, Pedal edema, Calf pain Respiratory: reports: Dyspnea. denies: Cough GI: denies: Abdominal Pain, Nausea, Vomiting Musculoskeletal: denies: Neck pain, Back pain Neurologic: reports: Generalized weakness, Headache, Head injury (1-2 weeks ago). denies: Focal weakness, Numbness, Difficulty speaking Endocrine: reports: Weight loss. denies: Easy bruising / bleeding Immunocompromised: denies: Immunocompromised PD PAST MEDICAL HISTORY - Past Medical History Cardiovascular: Hypertension, High cholesterol, Coronary artery disease, [place] (in 1997 with drug eluting stents x 2) Respiratory: COPD (on supplemental nocturnal oxygen therapy) Neuro: Other (ALS, prior brain tumor resection and has shunt in place. ) Endocrine/Autoimmune: HyPOthyroidism GI: GERD, Ulcers, Colon polyps : None HEENT: Chronic hearing loss Psych: None Musculoskeletal: Other (ALS) Derm: None - Past Surgical History Past Surgical History: Yes General: Colonoscopy, Other Ortho: Knee replacement Cardiovascular: Coronary stent, AAA Neuro: MERCHANDISING PROFESSOR shunt - Present Medications Home Medications: Ambulatory Orders Medication Instructions Recorded Confirmed Aspirin 325 mg PO DAILY 08/20/15 12/14/19 Levothyroxine [Synthroid] 75 mcg PO DAILY 08/20/15 12/14/19 Nitroglycerin [Nitrostat] 0.4 mg [id number] TITR PRN 07/18/16 12/14/19 Atorvastatin [Lipitor] 10 mg PO QPM 09/11/19 12/14/19 Calcium Carbonate [Calcium] 600 mg PO BID 09/11/19 12/14/19 Fluticasone Propion/Salmeterol 1 puffs IN BID 09/11/19 12/14/19 [Wixela 100-50 Inhub] Sertraline [Zoloft] 25 mg PO DAILY 11/19/19 12/14/19 Metoprolol Succinate 50 mg PO BID 12/14/19 12/14/19 cefUROXime axetiL [Ceftin] 500 mg PO BID #16 tablet 12/16/19 Levetiracetam [Keppra] 1,000 mg PO BID 12/17/19 12/17/19 Mirtazapine 7.5 mg PO QPM 01/11/20 01/11/20 - Allergies Allergies/Adverse Reactions: Allergies Allergy/AdvReac Type Severity Reaction Status Date / Time carbamazepine AdvReac Unknown Verified 01/20/20 14:14 iodine AdvReac Unknown Verified 01/20/20 14:14 shellfish derived AdvReac Unknown Verified 01/20/20 14:14 - Social History Does the pt smoke?: No Smoking Status: Never smoker Does the pt drink ETOH?: No Does the pt have substance abuse?: No - Immunizations Immunizations are current?: Yes - POLST Patient has POLST: Yes POLST Status: Full Code PD ED PE NORMAL - Vitals Vital signs reviewed: Yes - General General: Alert and oriented X 3 (He is oriented. His answers are a bit lengthy and tangential.), No acute distress. No: Well developed/nourished (He is thin and somewhat frail appearing.) - HEENT HEENT: Atraumatic, Moist mucous membranes, Pharynx benign, Other (Right parietal MERCHANDISING PROFESSOR shunt is felt under the skin. The reservoir is easily palpable and depresses and refills easily and briskly. No tenderness) - Neck Neck: Supple, no meningeal sign, No adenopathy - Cardiac Cardiac: No: RRR (Regular and tachycardic at 130) - Respiratory Respiratory: Clear bilaterally - Abdomen Abdomen: Soft, Non tender - Male Male : Deferred - Rectal Rectal: Deferred - Back Back: No CVA TTP, No spinal TTP - Derm Derm: Normal color, Warm and dry - Extremities Extremities: Normal ROM s pain, No edema, No calf tenderness / cord - Neuro Neuro: Alert and oriented X 3, audio visual production specialist 2-12 intact, No motor deficit, No sensory deficit, Normal speech Eye Opening: Spontaneous Motor: Obeys Commands Verbal: Oriented GCS Score: 15 - Psych Psych: Normal mood Results - Vitals Vitals: Vital Signs - 24 hr 01/20/20 01/20/20 01/20/20 14:08 14:18 15:15 Temperature 36.7 C Heart Rate 129 H 129 H 127 H Respiratory 22 13 16 Rate Blood Pressure 112/84 H 112/84 H 126/90 H O2 Saturation 100 98 100 01/20/20 01/20/20 01/20/20 15:28 15:33 15:53 Temperature Heart Rate 64 64 63 Respiratory 16 17 19 Rate Blood Pressure 119/74 108/70 125/80 O2 Saturation 100 100 99 01/20/20 16:42 Temperature Heart Rate 79 Respiratory 14 Rate Blood Pressure 143/85 H O2 Saturation 100 Oxygen O2 Source Room air - EKG (time done) 14:50 Rate: Rate (enter#) (128) Rhythm: Atrial flutter QRS: Normal Ischemia: Normal ST segments. No: ST elevation c/w ischemia, ST depression later Rate: Rate (enter#) (68) Rhythm: Atrial flutter (with 4:1 conduction) Ischemia: Normal ST segments. No: ST elevation c/w ischemia, ST depression - Labs Labs: Laboratory Tests 01/20/20 01/20/20 01/20/20 14:18 14:18 14:18 WBC 4.3 L RBC 3.52 L Hgb 11.2 L Hct 33.4 L MCV 94.9 H MCH 31.8 H MCHC 33.5 RDW 13.8 Plt Count 125 L MPV 9.3 Neut # (Auto) 2.5 Lymph # (Auto) 1.1 L [place] # (Auto) 0.5 Eos # (Auto) 0.2 Baso # (Auto) 0.0 Absolute Nucleated RBC 0.00 Nucleated RBC % 0.0 Sodium 141 Potassium 4.2 Chloride 104 Carbon Dioxide 24 Anion Gap 13.0 BUN 42 H Creatinine 1.4 H Estimated GFR (MDRD) 49 L Glucose 85 Calcium 10.1 Magnesium 2.1 Total Bilirubin 0.9 AST 38 ALT 36 Alkaline Phosphatase 50 Troponin I High Sens B-Natriuretic Peptide 243 H Total Protein 6.8 Albumin 4.3 Globulin 2.5 Albumin/Globulin Ratio 1.7 Lipase 49 TSH Ethyl Alcohol < 5.0 01/20/20 01/20/20 14:18 14:55 WBC RBC Hgb Hct MCV MCH MCHC RDW Plt Count MPV Neut # (Auto) Lymph # (Auto) [place] # (Auto) Eos # (Auto) Baso # (Auto) Absolute Nucleated RBC Nucleated RBC % Sodium Potassium Chloride Carbon Dioxide Anion Gap BUN Creatinine Estimated GFR (MDRD) Glucose Calcium Magnesium Total Bilirubin AST ALT Alkaline Phosphatase Troponin I High Sens 10.1 B-Natriuretic Peptide Total Protein Albumin Globulin Albumin/Globulin Ratio Lipase TSH 1.50 Ethyl Alcohol - Rads (name of study) chest xray Radiology: Prelim report reviewed (COPD and some chronic scarring. No acute infiltrates), See rad report head CT Radiology: Prelim report reviewed, Discussed with rads (Small amount of subarachnoid hemorrhage in the right parietal area. Otherwise prior shunt in place and surgical changes), See rad report head angio Radiology: Prelim report reviewed (No aneurysms nor vascular abnormalities. Small subarachnoid blood again noted), See rad report PD MEDICAL DECISION MAKING - ED course Complexity details: reviewed results, re-evaluated patient, d/w patient, d/w construction consultant (Talked with neurology and then Dr. Beatty neurosurgery at [facility]. To get had PATIÑO here and if no AVM or aneurysms then to just watch for a day for any further bleeding. No need for transfer unless vascular abnormality) Departure - Departure Disposition: 66 [facility] DC/Xfer Clinical Impression: Atrial flutter with rapid ventricular response, Subarachnoid hemorrhage, Lightheadedness Altered mental status Qualifiers: Altered mental status type: disorientation Qualified Code(s): R41.0 - Disorientation, unspecified Condition: Stable Record reviewed to determine appropriate education?: Yes
[2020-01-20] MEDS ORDERED: SODIUM CHLORIDE 0.9% 1,000 ML IV STA ×3 (14:44→17:29)
[2020-01-20] MEDS ORDERED: DILTIAZEM 50 MG/10 ML VIAL IVP ONE ×2 (14:45→18:12)
[2020-01-20 15:07] LABS: BASOPHILS % (AUTO) 0.9 %; EOSINOPHILS # (AUTO) 0.2 10^3/uL (0.0-0.7); EOSINOPHILS % (AUTO) 3.7 %; HGB - HEMOGLOBIN 11.2 g/dL (14.0-18.0); LYMPHOCYTES # (AUTO) 1.1 10^3/uL (1.5-3.5); LYMPHOCYTES % (AUTO) 24.6 %; MEAN CORPUSCULAR HEMOGLOBIN 31.8 pg (27.0-31.0); MEAN CORPUSCULAR HGB CONC 33.5 g/dL (32.0-36.0); MEAN CORPUSCULAR VOLUME 94.9 fL (80.0-94.0); MEAN PLATELET VOLUME 9.3 fL (7.4-11.4); MONOCYTES # (AUTO) 0.5 10^3/uL (0.0-1.0); MONOCYTES % (AUTO) 12.2 %; NEUTROPHILS # (AUTO) 2.5 10^3/uL (1.5-6.6); NEUTROPHILS % (AUTO) 58.1 %; PLT - PLATELET COUNT 125 10^3/uL (130-450); RED BLOOD COUNT 3.52 10^6/uL (4.70-6.10); RED CELL DISTRIBUTION WIDTH 13.8 % (12.0-15.0); WHITE BLOOD COUNT 4.3 x10^3/uL (4.8-10.8)
[2020-01-20 15:22] LABS: ALBUMIN 4.3 g/dL (3.2-5.5); ALBUMIN/GLOBULIN RATIO 1.7 (1.0-2.2); ALKALINE PHOSPHATASE 50 IU/L (42-121); ALT ALANINE AMINOTRANSFERASE 36 IU/L (10-60); AST ASPARTATE AMINOTRANSFERASE 38 IU/L (10-42); BILIRUBIN,TOTAL 0.9 mg/dL (0.2-1.0); BUN - BLOOD UREA NITROGEN 42 mg/dL (6-20); CALCIUM 10.1 mg/dL (8.5-10.3); CARBON DIOXIDE - CO2 24 mmol/L (21-32); CHLORIDE 104 mmol/L (101-111); CREATININE 1.4 mg/dL (0.6-1.2); GLUCOSE 85 mg/dL (70-100); LIPASE 49 U/L (22-51); MAGNESIUM 2.1 mg/dL (1.7-2.8); SODIUM 141 mmol/L (135-145); TOTAL PROTEIN 6.8 g/dL (6.7-8.2)
--- NOTE | 2020-01-20 15:29 | CT Report ---
PROCEDURE: HEAD WO INDICATIONS: fall/hit head with confusion TECHNIQUE: Noncontrast 4.5 mm thick angled axial sections acquired from the foramen magnum to the vertex. For r adiation dose reduction, the following was used: automated exposure control, adjustment of mA and/or kV according to patient size. COMPARISON: 05/28/2019. FINDINGS: Image quality: Excellent. CSF spaces: Basal cisterns are patent. No extra-axial fluid collections. Ventricles are normal in size and shape. Brain: No midline shift. Diffuse, scattered nonspecific white matter signal changes, statistically r epresent chronic microvascular ischemic disease although differential includes neurodegenerative, inf ectious/inflammatory, demyelinating etiologies among other possibilities. No intracranial masses . T here is small focus of presumed extra-axial hyperdensity potentially reflecting blood in right pariet al sulcus image 20/3.. Reese-white matter interface is normal. Skull and face: Postsurgical changes related to right frontal approach ventriculostomy catheter as be fore. Tip is unchanged. Status post left frontal craniotomy. Sinuses: Visualized sinuses and mastoids are clear. IMPRESSION: Small focus of subarachnoid hemorrhage present within the right parietal sulci. Critical findings were personally telephoned and discussed with Dr. Tong in the emergency departme nt on 01/20/2020 Reviewed by: Jesse Teixeira MD on 01/20/2020 3:27 PM PDT Approved by: Jesse Teixeira MD on 01/20/2020 3:27 PM PDT Station ID: [id number]
--- NOTE | 2020-01-20 15:44 | XRAY Report ---
PROCEDURE: Chest 1 View X-Ray INDICATIONS: chest pain TECHNIQUE: One view of the chest was acquired. COMPARISON: FINDINGS: Surgical changes and devices: None. Lungs and pleura: No pleural effusions or pneumothorax. Lungs are abnormal, with relative pulmonary hyperexpansion and interstitial prominence, in a pattern similar to that seen during CT scanning .. Mediastinum: Mediastinal contours appear normal. Heart size is at the upper limits of normal. Bones and chest wall: No suspicious bony lesions. Overlying soft tissues appear unremarkable. IMPRESSION: COPD, chronic interstitial prominence, heart size at the upper limits of normal. No definite pneumoni a found. Reviewed by: Puneet Delvalle MD on 01/20/2020 3:42 PM PDT Approved by: Puneet Delvalle MD on 01/20/2020 3:42 PM PDT Station ID: [id number]
[2020-01-20] MEDS ORDERED: IOVERSOL 320 100 ML VIAL IVP ONE ×2 (16:55→20:05)
[2020-01-20] MEDS ORDERED: DEXAMETHASONE 10 MG/ML VIAL IVP STA (16:56)
[2020-01-20] MEDS ORDERED: diphenhydrAMINE INJ 50 MG/ML VIAL IVP STA (16:56)
--- NOTE | 2020-01-20 18:02 | CT Report ---
PROCEDURE: ANGIO HEAD W/WO INDICATIONS: small subarachnoid on CT CONTRAST: IV CONTRAST: Optiray 320 ml: 80 PO CONTRAST: *NO PO CONTRAST TECHNIQUE: Precontrast 4.5 mm thick angled axial sections acquired from the foramen magnum to the vertex. Afte r the administration of intravenous contrast, 1 mm thick sections acquired through the [place] of [place] is. Postcontrast 4.5 mm thick sections then re-acquired from the foramen magnum to the vertex. 3-di mensional zznnhki-tfmhioifp-nfaydgcydi (MIP) and/or volume rendering reformats were acquired of the c entral intracranial vasculature. For radiation dose reduction, the following was used: automated ex posure control, adjustment of mA and/or kV according to patient size. COMPARISON: Noncontrast head CT dated 01/20/2020 FINDINGS: A right-sided ventriculostomy catheter is present, the tip of which is present in the midp ortion of the right lateral ventricle. Image quality: Marked streak artifact from the metallic sutures at the cornea Limited evaluation. Anterior circulation: Atheromatous calcifications are present within the petrous portion of the bilat eral internal carotid arteries without hemodynamically significant stenosis. Atheromatous calcificati ons are present within the cavernous portions of the bilateral internal carotid arteries with resulta nt moderate narrowing bilaterally. The flow within the paired anterior cerebral arteries is normal an d symmetric. The flow within the middle cerebral arteries is normal and symmetric. The anterior com municating artery is seen. No aneurysms are seen. Posterior circulation: Visualized portions of the vertebral arteries demonstrate normal caliber, and join to form a normal appearing basilar artery. Flow within the posterior cerebral arteries is norm al and symmetric. No aneurysms are seen. CSF spaces: Ventricles are normal in size and shape. Basal cisterns are patent. No extra-axial flu id collections. Brain: Subarachnoid hemorrhage is redemonstrated within the right parietal lobe and appears unchange d from the study earlier today. No midline shift. No intracranial bleeds or masses. Reese-white lucille er interface appears intact. Skull and face: Calvarium and facial bones appear intact, without suspicious lesions. Sinuses: Visualized sinuses and mastoids are clear. IMPRESSION: 1. Stable appearance of the small right parietal subarachnoid hemorrhage. 2. Moderate grade stenosis of the cavernous portions of the bilateral internal carotid arteries secon yolis to atheromatous calcification. No other hemodynamically significant stenosis. No occlusion or an eurysm. Reviewed by: Kina Reddy MD on 01/20/2020 6:00 PM PDT Approved by: Kina Reddy MD on 01/20/2020 6:00 PM PDT Station ID: [id number]
[2020-01-20] MEDS ORDERED: ONDANSETRON 4 MG/2 ML VIAL IVP PRN (18:24)
[2020-01-20] MEDS ORDERED: ACETAMINOPHEN 325 MG TABLET PO PRN (18:24)
[2020-01-20] MEDS ORDERED: NITROGLYCERIN SL 0.4 MG TABLET SL PRN (18:30)
[2020-01-20] MEDS ORDERED: DEXTROSE 5%-0.9% NACL 1,000 ML IV SCH (19:00)
--- NOTE | 2020-01-20 19:54 | HISTORY & PHYSICAL EXAMINATION ---
Chief Complaint - Chief Complaint Chief Complaint: AMS/ Dizzy History of Present Illness - Admitted From Admitted From:: [facility] ED - History Obtained From Records Reviewed: yes History obtained from: ED physician's note Exam Limitations: patient is confused and very hard of hearing - History of Present Illness HPI Comment/Other: According to the HPI of the ED physicians H&P patient is an 79-year-old male who was brought in with complaint of confusion for the past 3 to 4 days and unsteady gait. It is reported that his noticed that he was having wondering anxious questions and he seemed more off balance. The patient reported that he fell within the past 2 weeks and currently complains of some headache. Objectively he was found to be in atrial fibrillation with rapid ventricular rhythm and a heart rate as high as 130. He was initially treated with diltiazem IV to which he responded well. However over time his heart rate increased back to the 130. As part of the full work-up for his headache he had a CT scan of the brain done which showed A small right parietal subarachnoid hemorrhage. As a result of the above he was admitted for further treatment and evaluation. At bedside he was awake and resting comfortably however he is not able to provide any significant history because of being very hard of hearing and confused. However he denied any chest pain, dyspnea, abdominal pain, nausea, vomiting, fever or chills. History - Past Medical History Cardiovascular: reports: Hypertension, High cholesterol, Coronary artery disease , [place] (in 1997 with drug eluting stents x 2) Respiratory: reports: COPD (on supplemental nocturnal oxygen therapy) Neuro: reports: Other (ALS, prior brain tumor resection and has shunt in place. ) Endocrine/Autoimmune: reports: HyPOthyroidism GI: reports: GERD, Ulcers, Colon polyps : reports: None HEENT: reports: Chronic hearing loss Psych: reports: None Musculoskeletal: reports: Other (ALS) Derm: reports: None MRSA Hx?: No - Past Surgical History General: reports: Colonoscopy, Other Ortho: reports: Knee replacement Cardiovascular: reports: Coronary stent, AAA Neuro: reports: PAYROLL TAX ANALYST shunt - Family & Social History Family History: Mother: , Father: Social History Notes: Patient is a former smoker. Had 75 pack years. Quit smoking in 1996. Patient drinks less than 1 alcoholic drink a day. No illicit drug use. Patient lives at home with his - Substance History Use: Uses substance without health or social issues: NONE (former smoker started age 9 and stopped in 1996; drinks alochol very rarely) - POLST Patient has POLST: Yes POLST Status: DNR Meds/Allgy - Home Medications Home Medications: Ambulatory Orders Medication Instructions Recorded Confirmed Aspirin 325 mg PO DAILY 08/20/15 12/14/19 Levothyroxine [Synthroid] 75 mcg PO DAILY 08/20/15 12/14/19 Nitroglycerin [Nitrostat] 0.4 mg [id number] TITR PRN 07/18/16 12/14/19 Atorvastatin [Lipitor] 10 mg PO QPM 09/11/19 12/14/19 Calcium Carbonate [Calcium] 600 mg PO BID 09/11/19 12/14/19 Fluticasone Propion/Salmeterol 1 puffs IN BID 09/11/19 12/14/19 [Wixela 100-50 Inhub] Sertraline [Zoloft] 25 mg PO DAILY 11/19/19 12/14/19 Metoprolol Succinate 50 mg PO BID 12/14/19 12/14/19 cefUROXime axetiL [Ceftin] 500 mg PO BID #16 tablet 12/16/19 Levetiracetam [Keppra] 1,000 mg PO BID 12/17/19 12/17/19 Mirtazapine 7.5 mg PO QPM 01/11/20 01/11/20 - Allergies Allergies/Adverse Reactions: Allergies Allergy/AdvReac Type Severity Reaction Status Date / Time carbamazepine AdvReac Unknown Verified 01/20/20 14:14 iodine AdvReac Unknown Verified 01/20/20 14:14 shellfish derived AdvReac Unknown Verified 01/20/20 14:14 Review of Systems - Constitutional Constitutional: denies: Fever, Weakness - Ears, Nose & Throat Ears, Nose & Throat: reports: Hearing aids - Cardiovascular Cariovascular: reports: Irregular heart rate. denies: Chest pain, Edema - Respiratory Respiratory: denies: Cough, SOB at rest, SOB with exertion - Gastrointestinal Gastrointestinal: denies: Abdominal pain, Abdominal distention, Constipation, Diarrhea, Nausea, Vomiting - Genitourinary Genitourinary: denies: Dysuria, Frequency, Urgency, Hematuria - Musculoskeletal Musculoskeletal: denies: Muscle pain, Back pain, Muscle aches - Integumentary Integumentary: denies: Rash, Pruritis, Lesions, Dryness - Neurological Neurological: reports: Headache, Abnormal gait. denies: Focal weakness - Psychiatric Psychiatric: denies: Depression, Anxiety - Endocrine Endocrine: denies: Polyuria, Polydypsia - Hematologic/Lymphatic Hematologic/Lymphatic: denies: Anemia, Bruising, Petechiae - Other Findings Other Findings: Overall his review of system is limited because of baseline dementia and being very hard of hearing Prior Level of Functionality: Patient has baseline dementia. He lives at home with his . He is also on oxygen via nasal cannula as needed. He gets around with a walker or cane. He is able to feed himself and do some personal cares. Exam - Vital Signs Vital Signs: Vital Signs x48h Temp Pulse Resp BP Pulse Ox 01/20/20 18:57 63 17 116/70 98 01/20/20 18:43 70 18 109/76 98 01/20/20 18:19 123 H 18 127/89 H 98 01/20/20 16:42 79 14 143/85 H 100 01/20/20 15:53 63 19 125/80 99 01/20/20 15:33 64 17 108/70 100 01/20/20 15:28 64 16 119/74 100 01/20/20 15:15 127 H 16 126/90 H 100 01/20/20 14:18 129 H 13 112/84 H 98 01/20/20 14:08 36.7 C 129 H 22 112/84 H 100 - Physical Exam General Appearance: positive: No acute distress Eyes Bilateral: positive: PERRL, EOMI ENT: positive: No signs of dehydration Neck: positive: No JVD, Trachea midline Respiratory: positive: Chest non-tender, No respiratory distress, Breath sounds nml. negative: Wheezes, Rales, Rhonchi Cardiovascular: positive: No murmur, Irregularly irregular, Tachycardia Abdomen: positive: Non-tender, No organomegaly, Nml bowel sounds, No distention. negative: Guarding, Rebound Back: positive: Nml inspection Skin: positive: Color nml, No rash, Warm, Dry Extremities: positive: Non-tender, Full ROM, Nml appearance, No pedal edema Neurologic/Psychiatric: positive: Motor nml, Sensation nml. negative: Oriented x3 Conclusion/Plan - Problem List (1) Subarachnoid hemorrhage Conclusion/Plan: Acute. Stable and small in the right parietal lobe. Neurosurgery at [facility] was contacted who advised monitoring the patient for 24 hours. Will monitor patient for any changes in mentation (2) Atrial flutter with rapid ventricular response Conclusion/Plan: Patient on diltiazem drip. Metoprolol succinate 50 mg p.o. twice daily ordered. 2D echo pending (3) Hypothyroidism Conclusion/Plan: On Synthroid 75 mcg p.o. daily (4) Hypertension Conclusion/Plan: On metoprolol succinate 50 mg p.o. twice daily (5) Hyperlipidemia Conclusion/Plan: On atorvastatin 10 mg p.o. every night (6) Hx of seizure disorder Conclusion/Plan: On Keppra 1000 mg p.o. twice daily (7) COPD (chronic obstructive pulmonary disease) Conclusion/Plan: Not in exacerbation. Breathing treatments as needed - Lab Results Fish Bones: 01/20/20 14:18 01/20/20 14:18 Core Measures - Anticipated LOS I expect patient to be DC'd or transferred within 96 hours.: Yes - DVT/VTE - Prophylaxis VTE/DVT Device ordered at admit?: Yes Not Ordered - Medical Reason: Contraindicated
[2020-01-20] MEDS: DILTIAZEM 125 MG in DEXTROSE 5% 100 ML IV SCH ×2 (19:58→21:32)
[2020-01-20] MEDS: MIRTAZAPINE 15 MG TABLET PO SCH (21:49)
[2020-01-20] MEDS: METOPROLOL SUCCINATE 50 MG TABLET PO SCH (21:50)
[2020-01-20] MEDS: FAMOTIDINE 20 MG TABLET PO SCH (21:50)
[2020-01-20] MEDS: levETIRAcetam 250 MG TABLET PO SCH (21:50)
[2020-01-20] MEDS: ATORVASTATIN 10 MG TABLET PO SCH (21:50)
[2020-01-20] MEDS ORDERED: GABAPENTIN 400 MG CAPSULE PO SCH (23:39)
[2020-01-21 05:33] LABS: BASOPHILS % (AUTO) 0.7 %; EOSINOPHILS # (AUTO) 0.1 10^3/uL (0.0-0.7); EOSINOPHILS % (AUTO) 3.3 %; HGB - HEMOGLOBIN 9.7 g/dL (14.0-18.0); LYMPHOCYTES # (AUTO) 0.7 10^3/uL (1.5-3.5); LYMPHOCYTES % (AUTO) 25.3 %; MEAN CORPUSCULAR HEMOGLOBIN 31.5 pg (27.0-31.0); MEAN CORPUSCULAR VOLUME 95.5 fL (80.0-94.0); MEAN PLATELET VOLUME 9.5 fL (7.4-11.4); MONOCYTES # (AUTO) 0.2 10^3/uL (0.0-1.0); MONOCYTES % (AUTO) 5.5 %; NEUTROPHILS # (AUTO) 1.8 10^3/uL (1.5-6.6); NEUTROPHILS % (AUTO) 64.5 %; PLT - PLATELET COUNT 112 10^3/uL (130-450); RED BLOOD COUNT 3.08 10^6/uL (4.70-6.10); RED CELL DISTRIBUTION WIDTH 13.3 % (12.0-15.0); WHITE BLOOD COUNT 2.7 x10^3/uL (4.8-10.8)
[2020-01-21 05:47] LABS: ALBUMIN 3.7 g/dL (3.2-5.5); ALBUMIN/GLOBULIN RATIO 1.4 (1.0-2.2); BILIRUBIN,TOTAL 1.2 mg/dL (0.2-1.0); MAGNESIUM 1.8 mg/dL (1.7-2.8); PHOSPHORUS 3.5 mg/dL (2.5-4.6); TOTAL PROTEIN 6.4 g/dL (6.7-8.2)
[2020-01-21 06:08] LABS: DIFFERENTIAL COMMENT MANUAL=AUTO DIFF; PLATELET ESTIMATE, MANUAL DECREASED (<130,000) (NORMAL); RBC MORPHOLOGY (MULTIPLE) NORMAL APPEARANCE (NORMAL)
[2020-01-21 06:15] LABS: CALCIUM 8.7 mg/dL (8.5-10.3)
[2020-01-21] MEDS: SODIUM CHLORIDE FLUSH 0.9% 10 ML SYRINGE IVP SCH ×4 (06:17→20:35)
[2020-01-21] MEDS ORDERED: DEXTROSE 5%-0.9% NACL 1,000 ML IV SCH (07:58)
[2020-01-21] MEDS: levETIRAcetam 250 MG TABLET PO SCH ×2 (08:19→20:29)
[2020-01-21] MEDS: LEVOTHYROXINE 75 MCG TABLET PO SCH (08:21)
[2020-01-21] MEDS: METOPROLOL SUCCINATE 50 MG TABLET PO SCH ×2 (08:22→20:29)
[2020-01-21] MEDS: diltiaZEM CD 120 MG CAPSULE PO SCH (08:22)
[2020-01-21] MEDS: FAMOTIDINE 20 MG TABLET PO SCH ×2 (08:23→20:28)
--- NOTE | 2020-01-21 08:52 | PROVIDER PROGRESS NOTE ---
Assessment/Plan - Problem List (1) Atrial flutter with rapid ventricular response Assessment/Plan: Patient presented with a flutter with RVR. In reviewing his EMR, the patient had a flutter with intermittent RVR, during last hospitalization when he was here for pneumonia. It was not mentioned in any Progress Notes or Discharge Summary. It is unknown if he has had paroxysmal Aflutter or if the Aflutter is now persistent or chronic, therefore. He did not have an Echo on the last admission, Echo ordered for today. If the heart rate is stable, he can move out of the ICU to [facility] on telemetry, to assess what his heart rate does with any activity. PT to start. (2) Subarachnoid hemorrhage Assessment/Plan: There was report of him having abnormal gait and a fall approximately 2 weeks ago[address] The head CT on admission showed a small subarachnoid hemorrhage. It was apparently not large enough to warrant transfer for neurosurgery. The neurologist recommended following his neuro status. Difficulty will be determining whether his episodic confusion and agitation are from his dementia with behavioral disturbance, which has been seen at home (and described to me by the [facility]iative [facility] provider) or whether any agitation is a new significant neurologic change even above his baseline. (3) Inclusion body myositis (IBM) Assessment/Plan: The palliative care HUMAN RESOURCES SERVICES SPECIALIST, Brianna Luo brought me neurology records which show that his neurologist, Dr. Jairo Hernandez no longer thinks the man has ALS but rather that he has inclusion body myositis. Will order a PT eval, he may need a SNF for rehab for IBM management and for deconditioning. (4) Dementia with behavioral disturbance Assessment/Plan: Patient is followed by Palliative Care HUMAN RESOURCES SERVICES SPECIALIST, Brianna Luo. Brianna provided background information for me today: The patient had been on Sertraline to manage behavioral disturbances along with dementia, which was not successful. The Sertraline has recently been stopped but he should be continued on Remeron both for behavior and to improve appetite. We will discontinue Sertraline and continue Remeron. Haldol prn agitation. (5) COPD (chronic obstructive pulmonary disease) Assessment/Plan: Not in COPD exacerbation this admission. He uses home O2 at night which will be ordered to continue while here. Continue his usual inhaler therapy (6) Anemia Assessment/Plan: B12, folate levels and iron stores and replace if low. (7) TANANA (hard of hearing) Assessment/Plan: As per Hx. (8) Hypothyroidism Assessment/Plan: The TSH is adequate at 1.5. Continue his Synthroid dose as at home. (9) Hypertension Assessment/Plan: Blood pressure is controlled on his current medications. (10) Hx of seizure disorder Assessment/Plan: Continue his home dose of Keppra 1000 mg p.o. twice daily (11) Hyperlipidemia Assessment/Plan: Continue his atorvastatin 10 mg at bedtime - Current Meds Current Meds: Current Medications Generic Name Dose Route Start Last Admin Trade Name Liliana PRN Reason Stop Dose Admin Atorvastatin Calcium 10 mg 01/20/20 21:00 01/20/20 21:50 Lipitor PO 10 mg QPM HEATHER Administration Diltiazem HCl 120 mg 01/21/20 09:00 01/21/20 08:22 Cardizem Cd PO 120 mg DAILY HEATHER Administration Famotidine 20 mg 01/20/20 21:00 01/21/20 08:23 Pepcid PO 20 mg BID HEATEHR Administration Diltiazem HCl 125 mg/ Dextrose 125 mls @ 5 mls/hr 01/20/20 19:00 01/21/20 08:25 IV 01/21/20 11:00 0 mg/hr .Q25H HEATHER 0 mls/hr Titration Protocol 5 MG/HR Dextrose/Sodium Chloride 1,000 mls @ 40 mls/hr 01/21/20 07:58 01/21/20 08:22 D5ns IV 40 mls/hr .Q25H HEATHER Administration Levetiracetam 1,000 mg 01/20/20 21:00 01/21/20 08:19 Keppra PO 1,000 mg BID HEATHER Administration Levothyroxine Sodium 75 mcg 01/21/20 09:00 01/21/20 08:21 Synthroid PO 75 mcg DAILY HEATHER Administration Metoprolol Succinate 50 mg 01/20/20 21:00 01/21/20 08:22 Toprol Xl PO 50 mg BID HEATHER Administration Mirtazapine 7.5 mg 01/20/20 21:00 01/20/20 21:49 Remeron PO 7.5 mg QPM HEATHER Administration Sertraline HCl 50 mg 01/21/20 09:00 01/21/20 08:20 Zoloft PO 50 mg DAILY HEATHER Administration Sodium Chloride 10 ml 01/21/20 01:00 01/21/20 08:23 Normal Saline Flush 0.9% IVP 10 ml 0100,0900,1700 HEATHER Administration - Lab Result Fish Bone Diagrams: 01/21/20 04:25 01/21/20 04:25 - Additional Planning My Orders: My Active Orders 01/20/20 Dinner Cardiac Diet [DIET] 01/20/20 18:24 Activity Orders [RC] Q2HR Daily Weight [RC] 0600 IO [RC] Q1HR Initiate Bowel Care Protocol [RC] QSHIFT Initiate ICU Electrolyte Prot. [RC] .protocol Initiate Line Care Protocol [RC] .protocol Initiate Personal Care Protoco [RC] .protocol Turn and Reposition [RC] PRN Vital Signs [RC] Q4HR Acetaminophen [Tylenol] 650 mg PO Q4HR PRN Ondansetron Inj [Zofran Inj] 4 mg IVP Q6HR PRN Sodium Chloride Flush 0.9% [Normal Saline Flush 0.9%] 10 ml IVP PRN PRN Code Status [OTHERS] Routine Condition of Patient [OTHERS] Routine DVT Prophylaxis [OTHERS] Routine 01/20/20 18:25 Blood Glucose POC [RC] Routine 01/20/20 18:26 Oral Care - Nursing [RC] Routine Oxygen Therapy [RC] .PRN SCDs [RC] QSHIFT 01/20/20 18:29 Initiate Line Care Protocol [RC] QSHIFT 01/20/20 18:30 Nitroglycerin [Nitrostat] 0.4 mg SL TITR PRN 01/20/20 19:00 Dextrose 5% [D5w] 100 ml Diltiazem [Cardizem] 125 mg IV 5 mg/hr 01/20/20 21:00 Atorvastatin [Lipitor] 10 mg PO QPM Famotidine [Pepcid] 20 mg PO BID Metoprolol Succinate [Toprol Xl] 50 mg PO BID Mirtazapine [Remeron] 7.5 mg PO QPM levETIRAcetam [Keppra] 1,000 mg PO BID 01/21/20 Evaluate and Treat PT [PT] Routine 01/21/20 01:00 Sodium Chloride Flush 0.9% [Normal Saline Flush 0.9%] 10 ml IVP 0100,0900,1700 08/13/20 07:58 Dextrose 5%-0.9% NaCl [D5ns] 1,000 ml IV 40 mls/hr 01/21/20 08:00 Echo Transthoracic Complete [ECHO] Routine 01/21/20 09:00 Levothyroxine [Synthroid] 75 mcg PO DAILY Sertraline [Zoloft] 50 mg PO DAILY diltiaZEM CD [Cardizem Cd] 120 mg PO DAILY Objective Vital Signs: Vital Signs - 24 hr 01/20/20 01/20/20 01/20/20 14:08 14:18 15:15 Temperature 36.7 C Heart Rate 129 H 129 H 127 H Heart Rate [ Monitoring electrodes] Respiratory 22 13 16 Rate Blood Pressure 112/84 H 112/84 H 126/90 H Blood Pressure [Left Brachial artery] O2 Saturation 100 98 100 01/20/20 01/20/20 01/20/20 15:28 15:33 15:53 Temperature Heart Rate 64 64 63 Heart Rate [ Monitoring electrodes] Respiratory 16 17 19 Rate Blood Pressure 119/74 108/70 125/80 Blood Pressure [Left Brachial artery] O2 Saturation 100 100 99 01/20/20 01/20/20 01/20/20 16:42 18:19 18:43 Temperature Heart Rate 79 123 H 70 Heart Rate [ Monitoring electrodes] Respiratory 14 18 18 Rate Blood Pressure 143/85 H 127/89 H 109/76 Blood Pressure [Left Brachial artery] O2 Saturation 100 98 98 01/20/20 01/20/20 01/20/20 18:57 19:35 19:40 Temperature Heart Rate 63 66 62 Heart Rate [ Monitoring electrodes] Respiratory 17 17 19 Rate Blood Pressure 116/70 Blood Pressure [Left Brachial artery] O2 Saturation 98 01/20/20 01/20/20 01/20/20 19:41 19:42 19:43 Temperature Heart Rate 62 65 62 Heart Rate [ Monitoring electrodes] Respiratory 16 16 21 Rate Blood Pressure 112/75 111/68 123/82 H Blood Pressure [Left Brachial artery] O2 Saturation 01/20/20 01/20/20 01/20/20 19:44 19:45 19:46 Temperature Heart Rate 75 63 62 Heart Rate [ Monitoring electrodes] Respiratory 19 16 12 Rate Blood Pressure 114/92 H 118/96 H 106/84 H Blood Pressure [Left Brachial artery] O2 Saturation 01/20/20 01/20/20 01/20/20 19:47 19:50 19:55 Temperature Heart Rate 75 62 62 Heart Rate [ Monitoring electrodes] Respiratory 19 17 14 Rate Blood Pressure Blood Pressure [Left Brachial artery] O2 Saturation 01/20/20 01/20/20 01/20/20 20:00 20:01 20:05 Temperature Heart Rate 62 62 62 Heart Rate [ Monitoring electrodes] Respiratory 12 15 14 Rate Blood Pressure 125/64 Blood Pressure [Left Brachial artery] O2 Saturation 01/20/20 01/20/20 01/20/20 20:10 20:15 20:20 Temperature Heart Rate 62 62 62 Heart Rate [ Monitoring electrodes] Respiratory 18 14 18 Rate Blood Pressure Blood Pressure [Left Brachial artery] O2 Saturation 01/20/20 01/20/20 01/20/20 20:25 20:30 20:31 Temperature Heart Rate 62 62 62 Heart Rate [ Monitoring electrodes] Respiratory 19 14 12 Rate Blood Pressure 107/70 Blood Pressure [Left Brachial artery] O2 Saturation 01/20/20 01/20/20 01/20/20 20:35 20:40 20:45 Temperature Heart Rate 62 62 68 Heart Rate [ Monitoring electrodes] Respiratory 17 16 22 Rate Blood Pressure Blood Pressure [Left Brachial artery] O2 Saturation 01/20/20 01/20/20 01/20/20 20:50 20:55 20:59 Temperature Heart Rate 72 74 107 H Heart Rate [ Monitoring electrodes] Respiratory 17 23 19 Rate Blood Pressure Blood Pressure [Left Brachial artery] O2 Saturation 01/20/20 01/20/20 01/20/20 21:00 21:01 21:05 Temperature 37.1 C Heart Rate 123 H 123 H 123 H Heart Rate [ 114 H Monitoring electrodes] Respiratory 18 18 18 Rate Blood Pressure 104/84 H Blood Pressure 104/84 H [Left Brachial artery] O2 Saturation 99 01/20/20 01/20/20 01/20/20 21:10 21:15 21:20 Temperature Heart Rate 123 H 106 H 119 H Heart Rate [ Monitoring electrodes] Respiratory 18 29 H 12 Rate Blood Pressure Blood Pressure [Left Brachial artery] O2 Saturation 01/20/20 01/20/20 01/20/20 21:25 21:30 21:31 Temperature Heart Rate 122 H 124 H 87 Heart Rate [ Monitoring electrodes] Respiratory 13 20 21 Rate Blood Pressure 116/80 Blood Pressure [Left Brachial artery] O2 Saturation 01/20/20 01/20/20 01/20/20 21:35 21:40 21:45 Temperature Heart Rate 118 H 105 H 99 Heart Rate [ Monitoring electrodes] Respiratory 22 19 14 Rate Blood Pressure Blood Pressure [Left Brachial artery] O2 Saturation 01/20/20 01/20/20 01/20/20 21:50 21:55 22:00 Temperature Heart Rate 123 H 90 97 Heart Rate [ Monitoring electrodes] Respiratory 20 27 H 15 Rate Blood Pressure Blood Pressure [Left Brachial artery] O2 Saturation 01/20/20 01/20/20 01/20/20 22:01 22:05 22:10 Temperature Heart Rate 94 86 81 Heart Rate [ Monitoring electrodes] Respiratory 17 20 8 L Rate Blood Pressure 105/74 Blood Pressure [Left Brachial artery] O2 Saturation 01/20/20 01/20/20 01/20/20 22:15 22:20 22:25 Temperature Heart Rate 103 H 91 87 Heart Rate [ Monitoring electrodes] Respiratory 31 H 13 15 Rate Blood Pressure Blood Pressure [Left Brachial artery] O2 Saturation 01/20/20 01/20/20 01/20/20 22:30 22:31 22:35 Temperature Heart Rate 73 81 73 Heart Rate [ Monitoring electrodes] Respiratory 17 18 9 L Rate Blood Pressure 99/67 Blood Pressure [Left Brachial artery] O2 Saturation 01/20/20 01/20/20 01/20/20 22:40 22:45 22:50 Temperature Heart Rate 70 80 77 Heart Rate [ Monitoring electrodes] Respiratory 17 10 L 15 Rate Blood Pressure Blood Pressure [Left Brachial artery] O2 Saturation 01/20/20 01/20/20 01/20/20 22:55 23:00 23:01 Temperature Heart Rate 73 76 77 Heart Rate [ 70 Monitoring electrodes] Respiratory 11 L 12 11 L Rate Blood Pressure 89/72 L Blood Pressure 89/72 L [Left Brachial artery] O2 Saturation 96 01/20/20 01/20/20 01/20/20 23:05 23:10 23:15 Temperature Heart Rate 73 70 69 Heart Rate [ Monitoring electrodes] Respiratory 9 L 8 L 18 Rate Blood Pressure Blood Pressure [Left Brachial artery] O2 Saturation 01/20/20 01/20/20 01/20/20 23:20 23:25 23:30 Temperature Heart Rate 66 69 63 Heart Rate [ Monitoring electrodes] Respiratory 18 18 18 Rate Blood Pressure Blood Pressure [Left Brachial artery] O2 Saturation 01/20/20 01/20/20 01/20/20 23:35 23:40 23:45 Temperature Heart Rate 64 69 66 Heart Rate [ Monitoring electrodes] Respiratory 22 18 8 L Rate Blood Pressure Blood Pressure [Left Brachial artery] O2 Saturation 01/20/20 01/20/20 01/21/20 23:50 23:55 00:00 Temperature Heart Rate 66 61 64 Heart Rate [ Monitoring electrodes] Respiratory 10 L 19 Rate Blood Pressure Blood Pressure [Left Brachial artery] O2 Saturation 01/21/20 01/21/20 01/21/20 00:01 00:05 00:10 Temperature Heart Rate 66 65 63 Heart Rate [ Monitoring electrodes] Respiratory 17 18 17 Rate Blood Pressure 102/64 Blood Pressure [Left Brachial artery] O2 Saturation 01/21/20 01/21/20 01/21/20 00:15 00:20 00:25 Temperature Heart Rate 64 64 61 Heart Rate [ 61 Monitoring electrodes] Respiratory 17 15 13 Rate Blood Pressure Blood Pressure 102/64 [Left Brachial artery] O2 Saturation 98 01/21/20 01/21/20 01/21/20 00:30 00:35 00:40 Temperature Heart Rate 67 66 66 Heart Rate [ Monitoring electrodes] Respiratory 8 L 8 L 9 L Rate Blood Pressure Blood Pressure [Left Brachial artery] O2 Saturation 01/21/20 01/21/20 01/21/20 00:45 00:50 00:55 Temperature Heart Rate 67 62 64 Heart Rate [ Monitoring electrodes] Respiratory 8 L 11 L 11 L Rate Blood Pressure Blood Pressure [Left Brachial artery] O2 Saturation 01/21/20 01/21/20 01/21/20 01:00 01:01 01:05 Temperature Heart Rate 74 66 67 Heart Rate [ 66 Monitoring electrodes] Respiratory 12 17 Rate Blood Pressure 93/61 Blood Pressure 93/61 [Left Brachial artery] O2 Saturation 96 01/21/20 01/21/20 01/21/20 01:10 01:15 01:20 Temperature Heart Rate 61 64 68 Heart Rate [ Monitoring electrodes] Respiratory 15 21 12 Rate Blood Pressure Blood Pressure [Left Brachial artery] O2 Saturation 01/21/20 01/21/20 01/21/20 01:25 01:30 01:35 Temperature Heart Rate 68 66 64 Heart Rate [ Monitoring electrodes] Respiratory 17 9 L Rate Blood Pressure Blood Pressure [Left Brachial artery] O2 Saturation 01/21/20 01/21/20 01/21/20 01:40 01:45 01:50 Temperature Heart Rate 66 66 61 Heart Rate [ Monitoring electrodes] Respiratory 18 9 L 13 Rate Blood Pressure Blood Pressure [Left Brachial artery] O2 Saturation 01/21/20 01/21/20 01/21/20 01:55 01:59 02:00 Temperature Heart Rate 64 63 64 Heart Rate [ Monitoring electrodes] Respiratory 22 12 13 Rate Blood Pressure 95/66 Blood Pressure [Left Brachial artery] O2 Saturation 01/21/20 01/21/20 01/21/20 02:01 02:05 02:10 Temperature Heart Rate 71 62 64 Heart Rate [ Monitoring electrodes] Respiratory 34 H 16 20 Rate Blood Pressure Blood Pressure [Left Brachial artery] O2 Saturation 01/21/20 01/21/20 01/21/20 02:15 02:20 02:25 Temperature Heart Rate 67 61 61 Heart Rate [ Monitoring electrodes] Respiratory 12 22 17 Rate Blood Pressure Blood Pressure [Left Brachial artery] O2 Saturation 01/21/20 01/21/20 01/21/20 02:30 02:35 02:40 Temperature Heart Rate 63 61 61 Heart Rate [ Monitoring electrodes] Respiratory 19 23 18 Rate Blood Pressure Blood Pressure [Left Brachial artery] O2 Saturation 01/21/20 01/21/20 01/21/20 02:45 02:50 02:55 Temperature Heart Rate 61 61 78 Heart Rate [ Monitoring electrodes] Respiratory 21 23 20 Rate Blood Pressure Blood Pressure [Left Brachial artery] O2 Saturation 01/21/20 01/21/20 01/21/20 03:00 03:05 03:10 Temperature Heart Rate 77 66 64 Heart Rate [ 61 Monitoring electrodes] Respiratory 20 20 17 Rate Blood Pressure Blood Pressure 95/66 [Left Brachial artery] O2 Saturation 99 01/21/20 01/21/20 01/21/20 03:15 03:20 03:25 Temperature Heart Rate 64 69 67 Heart Rate [ Monitoring electrodes] Respiratory 15 15 14 Rate Blood Pressure Blood Pressure [Left Brachial artery] O2 Saturation 01/21/20 01/21/20 01/21/20 03:30 03:35 03:40 Temperature Heart Rate 61 61 61 Heart Rate [ Monitoring electrodes] Respiratory 14 17 15 Rate Blood Pressure Blood Pressure [Left Brachial artery] O2 Saturation 01/21/20 01/21/20 01/21/20 03:45 03:50 03:55 Temperature Heart Rate 69 61 61 Heart Rate [ Monitoring electrodes] Respiratory 21 12 17 Rate Blood Pressure Blood Pressure [Left Brachial artery] O2 Saturation 01/21/20 01/21/20 01/21/20 04:00 04:05 04:10 Temperature Heart Rate 61 61 62 Heart Rate [ Monitoring electrodes] Respiratory 14 14 18 Rate Blood Pressure Blood Pressure [Left Brachial artery] O2 Saturation 01/21/20 01/21/20 01/21/20 04:15 04:20 04:25 Temperature Heart Rate 61 67 61 Heart Rate [ Monitoring electrodes] Respiratory 16 23 19 Rate Blood Pressure Blood Pressure [Left Brachial artery] O2 Saturation 01/21/20 01/21/20 01/21/20 04:30 04:35 04:40 Temperature Heart Rate 61 67 61 Heart Rate [ Monitoring electrodes] Respiratory 18 16 15 Rate Blood Pressure Blood Pressure [Left Brachial artery] O2 Saturation 01/21/20 01/21/20 01/21/20 04:45 04:50 04:55 Temperature Heart Rate 66 64 64 Heart Rate [ Monitoring electrodes] Respiratory 14 16 17 Rate Blood Pressure Blood Pressure [Left Brachial artery] O2 Saturation 01/21/20 01/21/20 01/21/20 05:00 05:05 05:10 Temperature Heart Rate 61 61 61 Heart Rate [ 61 Monitoring electrodes] Respiratory 16 15 16 Rate Blood Pressure Blood Pressure [Left Brachial artery] O2 Saturation 99 01/21/20 01/21/20 01/21/20 05:15 05:20 05:25 Temperature Heart Rate 61 67 61 Heart Rate [ Monitoring electrodes] Respiratory 17 17 19 Rate Blood Pressure Blood Pressure [Left Brachial artery] O2 Saturation 01/21/20 01/21/20 05:30 07:00 Temperature Heart Rate 62 Heart Rate [ 62 Monitoring electrodes] Respiratory 17 14 Rate Blood Pressure Blood Pressure 111/66 [Left Brachial artery] O2 Saturation 100 Oxygen O2 Source Room air I&O (Last 24 Hrs): Intake and Output Totals x24h 01/19/20 01/20/20 01/21/20 23:59 23:59 23:59 Intake Total 2240 254.417 Output Total 420 450 Balance 1820 -195.583 General: Alert, Other (Feeding himself breakfast, he understood that i was his new doctor as I showed him my badge.) HEENT: Atraumatic, Other (TANANA) Neck: Supple Neuro: Alert, Disoriented Cardiovascular: Regular rate, No murmurs Respiratory: No respiratory distress, Breath sounds nml Abdomen: Normal bowel sounds, Soft Extremities: No edema - Results Results: Laboratory Results WBC 2.7 x10^3/uL (4.8-10.8) L 01/21/20 04:25 RBC 3.08 10^6/uL (4.70-6.10) L 01/21/20 04:25 Hgb 9.7 g/dL (14.0-18.0) L 01/21/20 04:25 Hct 29.4 % (42.0-52.0) L 01/21/20 04:25 MCV 95.5 fL (80.0-94.0) H 01/21/20 04:25 MCH 31.5 pg (27.0-31.0) H 01/21/20 04:25 MCHC 33.0 g/dL (32.0-36.0) 01/21/20 04:25 RDW 13.3 % (12.0-15.0) 01/21/20 04:25 Plt Count 112 10^3/uL (130-450) L 01/21/20 04:25 MPV 9.5 fL (7.4-11.4) 01/21/20 04:25 Neut # (Auto) 1.8 10^3/uL (1.5-6.6) 01/21/20 04:25 Lymph # (Auto) 0.7 10^3/uL (1.5-3.5) L 01/21/20 04:25 [place] # (Auto) 0.2 10^3/uL (0.0-1.0) 01/21/20 04:25 Eos # (Auto) 0.1 10^3/uL (0.0-0.7) 01/21/20 04:25 Baso # (Auto) 0.0 10^3/uL (0.0-0.1) 01/21/20 04:25 Absolute Nucleated RBC 0.00 x10^3/uL 01/21/20 04:25 Band Neuts % (Manual) Not Reportable 01/21/20 04:25 Abnorm Lymph % (Manual) Not Reportable 01/21/20 04:25 Nucleated RBC % 0.0 /100WBC 01/21/20 04:25 Neutrophils # (Manual) Not Reportable 01/21/20 04:25 Lymphocytes # (Manual) Not Reportable 01/21/20 04:25 Monocytes # (Manual) Not Reportable 01/21/20 04:25 Eosinophils # (Manual) Not Reportable 01/21/20 04:25 Basophils # (Manual) Not Reportable 01/21/20 04:25 Differential Comment MANUAL=AUTO DIFF 01/21/20 04:25 Platelet Estimate DECREASED (<130,000) (NORMAL) 01/21/20 04:25 RBC Morph Micro Appear NORMAL APPEARANCE (NORMAL) 01/21/20 04:25 Sodium 140 mmol/L (135-145) 01/21/20 04:25 Potassium 4.2 mmol/L (3.5-5.0) 01/21/20 04:25 Chloride 111 mmol/L (101-111) 01/21/20 04:25 Carbon Dioxide 20 mmol/L (21-32) L 01/21/20 04:25 Anion Gap 9.0 (6-13) 01/21/20 04:25 BUN 34 mg/dL (6-20) H 01/21/20 04:25 Creatinine 1.0 mg/dL (0.6-1.2) 01/21/20 04:25 Estimated GFR (MDRD) 72 (>89) L 01/21/20 04:25 Glucose 168 mg/dL (70-100) H 01/21/20 04:25 Calcium 8.7 mg/dL (8.5-10.3) 01/21/20 04:25 Phosphorus 3.5 mg/dL (2.5-4.6) 01/21/20 04:25 Magnesium 1.8 mg/dL (1.7-2.8) 01/21/20 04:25 Total Bilirubin 1.2 mg/dL (0.2-1.0) H 01/21/20 04:25 AST 31 IU/L (10-42) 01/21/20 04:25 ALT 30 IU/L (10-60) 01/21/20 04:25 Alkaline Phosphatase 43 IU/L (42-121) 01/21/20 04:25 Troponin I High Sens 8.5 ng/L (2.3-19.7) 01/20/20 19:25 B-Natriuretic Peptide 495 pg/mL (5-100) H 01/21/20 04:25 Total Protein 6.4 g/dL (6.7-8.2) L 01/21/20 04:25 Albumin 3.7 g/dL (3.2-5.5) 01/21/20 04:25 Globulin 2.7 g/dL (2.1-4.2) 01/21/20 04:25 Albumin/Globulin Ratio 1.4 (1.0-2.2) 01/21/20 04:25 Lipase 49 U/L (22-51) 01/20/20 14:18 TSH 1.50 uIU/mL (0.34-5.60) 01/20/20 14:18 Nasal Screen MRSA (PCR) NEGATIVE (NEGATIVE) 01/20/20 19:15 Ethyl Alcohol < 5.0 mg/dL 01/20/20 14:18 - Procedures Procedures: Procedures INSPECTION OF LOWER INTESTINAL TRACT, ENDO (03/11/19)
[2020-01-21] MEDS ORDERED: SERTRALINE 25 MG TABLET PO SCH (09:00)
--- NOTE | 2020-01-21 11:45 | PHARMACY PROGRESS NOTE ---
- Best Possible Medication History Admit Date and Time: 01/20/201817 Processed by: Pharmacy Medication History completed: Yes Patient Interview: Completed Secondary Source(s): Pharmacy records (PATIENT INTERVIEWED BY PHARMACY. PATIENT AND SPOUSE ABLE TO CONFIRM HOME MEDICATIONS ), Insurance records As the person ultimately responsible for medication therapy, providers are able to order a medication from an existing home medication list in [facility] via the "Reconcile Routine" prior to Confirmation of that medication by linux support engineer. Such practice is discouraged except when the physician, in their clinical judgment, deems that a medical need exists for a medication without regard to previous use.
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
[2020-01-21] MEDS ORDERED: HALOPERIDOL 5 MG/ML VIAL IVP ONE (20:27)
[2020-01-21] MEDS: MIRTAZAPINE 15 MG TABLET PO SCH (20:28)
[2020-01-21] MEDS: HALOPERIDOL 5 MG/ML VIAL IVP PRN (20:28)
[2020-01-21] MEDS: ATORVASTATIN 10 MG TABLET PO SCH (20:28)
[2020-01-22] MEDS: SODIUM CHLORIDE FLUSH 0.9% 10 ML SYRINGE IVP PRN ×3 (01:05→22:45)
[2020-01-22] MEDS: HALOPERIDOL 5 MG/ML VIAL IVP PRN ×3 (01:05→22:45)
[2020-01-22] MEDS: diltiaZEM CD 120 MG CAPSULE PO SCH ×2 (08:11→20:54)
[2020-01-22] MEDS: FAMOTIDINE 20 MG TABLET PO SCH ×2 (08:14→20:54)
[2020-01-22] MEDS: LEVOTHYROXINE 75 MCG TABLET PO SCH (08:20)
[2020-01-22] MEDS: levETIRAcetam 250 MG TABLET PO SCH ×2 (08:21→20:54)
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
[2020-01-22] MEDS: SODIUM CHLORIDE FLUSH 0.9% 10 ML SYRINGE IVP SCH ×3 (09:04→20:58)
[2020-01-22] MEDS: METOPROLOL SUCCINATE 50 MG TABLET PO SCH ×2 (09:08→20:54)
[2020-01-22] MEDS: OLANZapine ODT 5 MG TABLET TL SCH (13:14)
[2020-01-22] MEDS ORDERED: HALOPERIDOL 5 MG/ML VIAL IVP ONE (17:28)
[2020-01-22] MEDS: BUDESONIDE 0.5 MG/2 ML NEB INH SCH (20:12)
[2020-01-22] MEDS: FORMOTEROL FUMARATE NEB 20 MCG/2 ML INH SCH (20:12)
[2020-01-22] MEDS: ATORVASTATIN 10 MG TABLET PO SCH (20:54)
[2020-01-22] MEDS: MIRTAZAPINE 15 MG TABLET PO SCH (20:54)
[2020-01-23 05:20] LABS: % IRON SATURATION 19 % (20-50); IRON 50 ug/dL (45-182); TOTAL IRON BINDING CAPACITY 262 ug/dL (250-450); TRANSFERRIN 187 mg/dL (180-329)
[2020-01-23 06:11] LABS: FOLATE 12.95 ng/mL (5.90 - >24.8)
[2020-01-23] MEDS: FORMOTEROL FUMARATE NEB 20 MCG/2 ML INH SCH ×2 (07:16→18:08)
[2020-01-23] MEDS: BUDESONIDE 0.5 MG/2 ML NEB INH SCH ×2 (07:16→18:09)
[2020-01-23] MEDS: FAMOTIDINE 20 MG TABLET PO SCH ×2 (08:50→20:14)
[2020-01-23] MEDS: levETIRAcetam 250 MG TABLET PO SCH ×2 (08:51→20:12)
[2020-01-23] MEDS: METOPROLOL SUCCINATE 50 MG TABLET PO SCH ×2 (08:51→20:14)
[2020-01-23] MEDS: OLANZapine ODT 5 MG TABLET TL SCH (08:51)
[2020-01-23] MEDS: diltiaZEM CD 120 MG CAPSULE PO SCH (08:51)
[2020-01-23] MEDS: SODIUM CHLORIDE FLUSH 0.9% 10 ML SYRINGE IVP SCH ×3 (08:51→23:05)
[2020-01-23] MEDS: LEVOTHYROXINE 75 MCG TABLET PO SCH (08:51)
[2020-01-23] MEDS ORDERED: OLANZapine ODT 5 MG TABLET TL STA (09:28)
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
[2020-01-23] MEDS ORDERED: HALOPERIDOL 5 MG/ML VIAL IVP ONE (12:39)
--- NOTE | 2020-01-23 13:14 | CT Report ---
PROCEDURE: Head W/O Stroke Protocol INDICATIONS: New garbled speech TECHNIQUE: Noncontrast 4.5 mm thick angled axial sections acquired from the foramen magnum to the vertex, with c oronal reformats. For radiation dose reduction, the following was used: automated exposure control, adjustment of mA and/or kV according to patient size. COMPARISON: Head CT and head angiogram 01/20/2020 FINDINGS: Image quality: There is artifact associated with the metallic hardware. CSF spaces: There is a right-sided ventriculostomy catheter, with the tip near the midline within th e mid right lateral ventricle. Basal cisterns are patent. No extra-axial fluid collections. No hydr ocephalus is seen. Ex vacuo dilatation is seen involving the left lateral ventricle. Brain: There is a small amount of stable intraparenchymal hemorrhage involving the right parietal re gion, as on series 3 image 21. Focal stable encephalomalacia can be seen involving the left frontal lobe anteriorly and inferiorly a s well as the anterior inferior left temporal lobe. No midline shift. No intracranial masses. Reese- white matter interface is normal. Skull and face: Eyelid prostheses can be seen on both sides, with associated streak artifact. Left-si ded craniotomy changes are seen. Calvarium and visualized facial bones are intact, without suspicious lesions. Sinuses: Visualized sinuses and mastoids are clear. IMPRESSION: Stable right parietal lobe intraparenchymal hemorrhage. No pipe CT findings of acute or interval stroke can be seen. Remote infarction can be seen involving the anterior inferior left frontal lobe and the anterior infe rior left temporal lobe, with volume loss and encephalomalacia. Left craniotomy changes are seen. Right ventriculostomy catheter. Eyelid prostheses, with associated streak artifact. This study fulfills neurological imaging criteria for inclusion or exclusion of acute stroke therapie s based on available published neurological imaging guidelines. Note: Case discussed by telephone with Dr. Regine Ross at 12:10 PM [place] time on 01/23/2020. Reviewed by: Kingsley Samuel MD on 01/23/2020 12:12 PM [facility] Approved by: Kingsley Samuel MD on 01/23/2020 12:12 PM [facility] Station ID: [id number]
[2020-01-23] MEDS: diltiaZEM CD 180 MG CAPSULE PO SCH (20:13)
[2020-01-23] MEDS: MIRTAZAPINE 15 MG TABLET PO SCH (20:13)
[2020-01-23] MEDS: ATORVASTATIN 10 MG TABLET PO SCH (20:13)
[2020-01-23] MEDS: traZODone 50 MG TABLET PO SCH (20:15)
[2020-01-23] MEDS: HALOPERIDOL 5 MG/ML VIAL IVP PRN (23:04)
[2020-01-24] MEDS: FORMOTEROL FUMARATE NEB 20 MCG/2 ML INH SCH ×2 (07:46→19:23)
[2020-01-24] MEDS: BUDESONIDE 0.5 MG/2 ML NEB INH SCH ×2 (07:46→19:23)
[2020-01-24] MEDS ORDERED: OLANZapine ODT 5 MG TABLET TL SCH (09:00)
[2020-01-24 10:31] LABS: BASOPHILS % (AUTO) 0.4 %; EOSINOPHILS # (AUTO) 0.2 10^3/uL (0.0-0.7); EOSINOPHILS % (AUTO) 3.5 %; HGB - HEMOGLOBIN 12.7 g/dL (14.0-18.0); LYMPHOCYTES # (AUTO) 0.6 10^3/uL (1.5-3.5); LYMPHOCYTES % (AUTO) 11.3 %; MEAN CORPUSCULAR HEMOGLOBIN 31.9 pg (27.0-31.0); MEAN CORPUSCULAR HGB CONC 35.2 g/dL (32.0-36.0); MEAN CORPUSCULAR VOLUME 90.7 fL (80.0-94.0); MEAN PLATELET VOLUME 9.2 fL (7.4-11.4); MONOCYTES # (AUTO) 0.5 10^3/uL (0.0-1.0); MONOCYTES % (AUTO) 9.5 %; NEUTROPHILS # (AUTO) 4.1 10^3/uL (1.5-6.6); NEUTROPHILS % (AUTO) 74.9 %; PLT - PLATELET COUNT 116 10^3/uL (130-450); RED BLOOD COUNT 3.98 10^6/uL (4.70-6.10); RED CELL DISTRIBUTION WIDTH 13.6 % (12.0-15.0); WHITE BLOOD COUNT 5.5 x10^3/uL (4.8-10.8)
[2020-01-24 10:40] LABS: CALCIUM 9.6 mg/dL (8.5-10.3); CREATININE 1.1 mg/dL (0.6-1.2)
[2020-01-24] MEDS ORDERED: DILTIAZEM 50 MG/10 ML VIAL IVP ONE (10:45)
[2020-01-24 10:55] LABS: RBC MORPHOLOGY (MULTIPLE) 2+ ANISOCYTOSIS (NORMAL)
[2020-01-24] MEDS ORDERED: LORazepam 2 MG/ML VIAL IVP STA (11:02)
[2020-01-24] MEDS ORDERED: LORazepam 2 MG/ML VIAL IVP PRN ×2 (11:02→11:05)
[2020-01-24] MEDS ORDERED: LORazepam 2 MG/ML VIAL ONE (11:07)
[2020-01-24] MEDS ORDERED: METOPROLOL 5 MG/5 ML VIAL IVP SCH (11:30)
--- NOTE | 2020-01-24 11:34 | PROVIDER PROGRESS NOTE ---
Assessment/Plan - Problem List (1) Altered mental status Qualifiers: Altered mental status type: stupor Qualified Code(s): R40.1 - Stupor Assessment/Plan: Today's daytime nurse noted that the patient is not awakening and eating his breakfast with a good appetite and communicating as usual. He has been somnolent. She let him sleep past 1030. The arrived and they both felt that he had a facial droop, his dentures are not in place however. I examined the patient: He is moving all 4 extremities spontaneously, fidgeting with his fingers and then falls back asleep, he responds to sternal rub by opening his eyes just briefly, then falls back asleep. He does not answer to his name. He did follow commands very briefly for the nurse and stuck out his tongue which was midline. Pupils are equal and reactive. He does have a left facial droop but this is without his dentures in place and his head is sagging toward the left. Will obtain stat head CT, stroke protocol. Since he is moving (fidgety) will use Ativan IV at low-dose, because of its short half-life, for sedation while in the CT scanner, in order to not give more Haldol. Stop Haldol prn doses. These doses may have added up to give him excessive sedation. Stop Mirtazipine. This may also be adding to over-sedation. His p.o. meds (for heart rate control and for seizure Hx) will have to be given by IV today. Transfer patient from [facility] into ICU status. I explained all this to the at bedside, who is in agreement with the plan. (2) Acute urinary retention Assessment/Plan: Because of mentation, he has not had urine output. His bladder scan shows greater than 600 cc. Will insert Ugalde catheter in a critically ill patient. (3) Atrial flutter with rapid ventricular response Assessment/Plan: Heart rate went up to 130s because he did not get his usual combination of p.o. meds for rate control. We will use IV Cardizem and IV Lopressor boluses. He cannot get anticoagulation because of a subarachnoid hemorrhage (4) Subarachnoid hemorrhage Assessment/Plan: This was found on CT of the head at admission. There was a fall at home about 2 weeks before this hospitalization (5) Inclusion body myositis (IBM) Assessment/Plan: He is followed by neurology. He has proximal muscle weakness, uses a walker for ambulation. 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 Zyprexa has been added over the past several days because of behavioral disturbances. Will stop the PRN Haldol and stop mirtazapine, because he is oversedated today. (7) Anemia Assessment/Plan: B12 and folate levels and iron work-up are pending Follow CBC daily. (8) COPD (chronic obstructive pulmonary disease) Assessment/Plan: No exacerbation. Inhalers are ordered scheduled (9) Hypothyroidism Assessment/Plan: He is on his home dose of thyroid. (10) Hypertension Assessment/Plan: Blood pressure under control on current combination of meds (11) Hx of seizure disorder Assessment/Plan: He is on Keppra for this, will need to get this dosed IV today (12) Hyperlipidemia Assessment/Plan: He is on a statin for this, it will be paused for now until he awakens (13) [place] (hard of hearing) Assessment/Plan: Continue with his right-sided hearing aid (14) Hypokalemia Assessment/Plan: Probably related to inadequate IV replacement since there had been recent nutrition problems. Replace K. Follow BMP daily (15) Severe protein-calorie malnutrition Assessment/Plan: Prior to this hospitalization he had failure to thrive and significantly decreased oral intake. This is adding to his dehydration and his weakness. - Current Meds Current Meds: Current Medications Generic Name Dose Route Start Last Admin Trade Name Freq PRN Reason Stop Dose Admin Atorvastatin Calcium 10 mg 01/20/20 21:00 01/23/20 20:13 Lipitor PO 10 mg QPM HEATHER Administration Budesonide 0.5 mg 01/22/20 19:00 01/24/20 07:46 Pulmicort INH 0.5 mg RTBID HEATHER Administration Diltiazem HCl 180 mg 01/23/20 21:00 01/23/20 20:13 Cardizem Cd PO 180 mg BID HEATHER Administration Famotidine 20 mg 01/20/20 21:00 01/23/20 20:14 Pepcid PO 20 mg BID HEATHER Administration Formoterol Fumarate 20 mcg 01/22/20 19:00 01/24/20 07:46 Perforomist INH 20 mcg RTBID HEATHER Administration Levetiracetam 1,000 mg 01/20/20 21:00 01/23/20 20:12 Keppra PO 1,000 mg BID HEATHER Administration Levothyroxine Sodium 75 mcg 01/21/20 09:00 01/23/20 08:51 Synthroid PO 75 mcg DAILY HEATHER Administration Metoprolol Succinate 75 mg 01/23/20 21:00 01/23/20 20:14 Toprol Xl PO 75 mg BID HEATHER Administration Sodium Chloride 10 ml 01/21/20 01:00 01/23/20 23:05 Normal Saline Flush 0.9% IVP 10 ml 0100,0900,1700 HEATHER Administration Sodium Chloride 10 ml 01/20/20 18:24 01/22/20 22:45 Normal Saline Flush 0.9% IVP 10 ml PRN PRN Administration NEEDED PER PROVIDER ORDERS Trazodone HCl 50 mg 01/23/20 21:00 01/23/20 20:15 Desyrel PO 50 mg QPM HEATHER Administration - Lab Result Fish Bone Diagrams: 01/24/20 10:20 01/24/20 10:20 - Additional Planning My Orders: My Active Orders 01/23/20 21:00 Metoprolol Succinate [Toprol Xl] 75 mg PO BID diltiaZEM CD [Cardizem Cd] 180 mg PO BID 01/24/20 09:00 OLANZapine ODT [ZyPREXA ODT] 10 mg TL DAILY 01/24/20 11:01 Head W/O Stroke Protocol [CT] Stat 01/24/20 11:02 LORazepam INJ [Ativan Inj (Vial)] 0.5 mg IVP Q2H PRN 01/24/20 11:03 Transfer [Admit \ Transfer \ Status] [RC] .ONCE 01/24/20 11:05 LORazepam INJ [Ativan Inj (Vial)] 1 mg IVP ONCE PRN 01/24/20 11:30 Metoprolol Inj [Lopressor Inj] 2.5 mg IVP ONCE Subjective - Subjective Patient Reports: Other (Somnolent, opens eyes only briefly to sternal rub) Nursing Reports: Other (He did not awaken as usual for breakfast, is somnolent, minimal response to sternal rub) Objective Vital Signs: Vital Signs - 24 hr 01/23/20 01/23/20 01/23/20 12:00 17:00 18:09 Temperature 37.1 C 37.2 C Heart Rate 128 H Heart Rate [ 84 99 Monitoring electrodes] Respiratory 17 18 24 Rate Blood Pressure [Left Brachial artery] Blood Pressure 114/72 132/93 H [Right Brachial artery] O2 Saturation 97 99 01/23/20 01/24/20 01/24/20 20:25 07:46 10:30 Temperature 37.8 C H Heart Rate 128 H Heart Rate [ 128 H 140 H Monitoring electrodes] Respiratory 21 21 24 Rate Blood Pressure 141/98 H [Left Brachial artery] Blood Pressure 141/80 H [Right Brachial artery] O2 Saturation 96 Oxygen O2 Source Room air I&O (Last 24 Hrs): Intake and Output Totals x24h 01/22/20 01/23/20 01/24/20 23:59 23:59 23:59 Intake Total 1220.000 300 Output Total 1925 1195 50 Balance -705.000 -895 -50 General: Other (Somnolent) HEENT: Atraumatic, Other (Possible left facial droop) Neck: Supple Neuro: Other (Somnolent, moving all 4 extremities spontaneously) Cardiovascular: Regular rate, No murmurs Respiratory: No respiratory distress Abdomen: Soft Extremities: No edema - Results Results: Laboratory Results WBC 5.5 x10^3/uL (4.8-10.8) 01/24/20 10:20 RBC 3.98 10^6/uL (4.70-6.10) L 01/24/20 10:20 Hgb 12.7 g/dL (14.0-18.0) L 01/24/20 10:20 Hct 36.1 % (42.0-52.0) L 01/24/20 10:20 MCV 90.7 fL (80.0-94.0) 01/24/20 10:20 MCH 31.9 pg (27.0-31.0) H 01/24/20 10:20 MCHC 35.2 g/dL (32.0-36.0) 01/24/20 10:20 RDW 13.6 % (12.0-15.0) 01/24/20 10:20 Plt Count 116 10^3/uL (130-450) L 01/24/20 10:20 MPV 9.2 fL (7.4-11.4) 01/24/20 10:20 Neut # (Auto) 4.1 10^3/uL (1.5-6.6) 01/24/20 10:20 Lymph # (Auto) 0.6 10^3/uL (1.5-3.5) L 01/24/20 10:20 [place] # (Auto) 0.5 10^3/uL (0.0-1.0) 01/24/20 10:20 Eos # (Auto) 0.2 10^3/uL (0.0-0.7) 01/24/20 10:20 Baso # (Auto) 0.0 10^3/uL (0.0-0.1) 01/24/20 10:20 Absolute Nucleated RBC 0.00 x10^3/uL 01/24/20 10:20 Band Neuts % (Manual) Not Reportable 01/21/20 04:25 Abnorm Lymph % (Manual) Not Reportable 01/21/20 04:25 Nucleated RBC % 0.0 /100WBC 01/24/20 10:20 Neutrophils # (Manual) Not Reportable 01/21/20 04:25 Lymphocytes # (Manual) Not Reportable 01/21/20 04:25 Monocytes # (Manual) Not Reportable 01/21/20 04:25 Eosinophils # (Manual) Not Reportable 01/21/20 04:25 Basophils # (Manual) Not Reportable 01/21/20 04:25 Differential Comment MANUAL=AUTO DIFF 01/21/20 04:25 Manual Slide Review Indicated 01/24/20 10:20 Platelet Estimate DECREASED (<130,000) (NORMAL) 01/21/20 04:25 RBC Morph Micro Appear 2+ ANISOCYTOSIS (NORMAL) 01/24/20 10:20 Sodium 141 mmol/L (135-145) 01/24/20 10:20 Potassium 3.1 mmol/L (3.5-5.0) L 01/24/20 10:20 Chloride 111 mmol/L (101-111) 01/24/20 10:20 Carbon Dioxide 19 mmol/L (21-32) L 01/24/20 10:20 Anion Gap 11.0 (6-13) 01/24/20 10:20 BUN 25 mg/dL (6-20) H 01/24/20 10:20 Creatinine 1.1 mg/dL (0.6-1.2) 01/24/20 10:20 Estimated GFR (MDRD) 64 (>89) L 01/24/20 10:20 Glucose 147 mg/dL (70-100) H 01/24/20 10:20 Calcium 9.6 mg/dL (8.5-10.3) 01/24/20 10:20 Phosphorus 3.5 mg/dL (2.5-4.6) 01/21/20 04:25 Magnesium 1.8 mg/dL (1.7-2.8) 01/21/20 04:25 Iron 50 ug/dL (45-182) 01/23/20 04:40 TIBC 262 ug/dL (250-450) 01/23/20 04:40 % Saturation 19 % (20-50) L 01/23/20 04:40 Transferrin 187 mg/dL (180-329) 01/23/20 04:40 Total Bilirubin 1.2 mg/dL (0.2-1.0) H 01/21/20 04:25 AST 31 IU/L (10-42) 01/21/20 04:25 ALT 30 IU/L (10-60) 01/21/20 04:25 Alkaline Phosphatase 43 IU/L (42-121) 01/21/20 04:25 Troponin I High Sens 8.5 ng/L (2.3-19.7) 01/20/20 19:25 B-Natriuretic Peptide 495 pg/mL (5-100) H 01/21/20 04:25 Total Protein 6.4 g/dL (6.7-8.2) L 01/21/20 04:25 Albumin 3.7 g/dL (3.2-5.5) 01/21/20 04:25 Globulin 2.7 g/dL (2.1-4.2) 01/21/20 04:25 Albumin/Globulin Ratio 1.4 (1.0-2.2) 01/21/20 04:25 Lipase 49 U/L (22-51) 01/20/20 14:18 Vitamin B12 662 pg/mL (180-914) 01/23/20 04:40 Folate 12.95 ng/mL (5.90 - >24.8) 01/23/20 04:40 TSH 1.50 uIU/mL (0.34-5.60) 01/20/20 14:18 Nasal Screen MRSA (PCR) NEGATIVE (NEGATIVE) 01/20/20 19:15 Ethyl Alcohol < 5.0 mg/dL 01/20/20 14:18 Coronavirus (PCR) NEGATIVE 01/22/20 12:00 - Procedures Procedures: Procedures INSPECTION OF LOWER INTESTINAL TRACT, ENDO (03/11/19)
[2020-01-24] MEDS: SODIUM CHLORIDE FLUSH 0.9% 10 ML SYRINGE IVP SCH ×2 (11:35→15:40)
[2020-01-24] MEDS: METOPROLOL SUCCINATE 50 MG TABLET PO SCH (11:35)
[2020-01-24] MEDS: LEVOTHYROXINE 75 MCG TABLET PO SCH (11:35)
[2020-01-24] MEDS: diltiaZEM CD 180 MG CAPSULE PO SCH (11:35)
[2020-01-24] MEDS: FAMOTIDINE 20 MG TABLET PO SCH (11:35)
--- NOTE | 2020-01-24 11:40 | CT Report ---
PROCEDURE: Head W/O Stroke Protocol INDICATIONS: Lethargy. Facial droop today. TECHNIQUE: Noncontrast 4.5 mm thick angled axial sections acquired from the foramen magnum to the vertex, with c oronal reformats. For radiation dose reduction, the following was used: automated exposure control, adjustment of mA and/or kV according to patient size. COMPARISON: 01/23/2020, 01/20/2020, 05/28/2019 FINDINGS: Image quality: There is artifact associated with the metallic hardware. This study is further limi ray by motion artifact. CSF spaces: Basal cisterns are patent. No extra-axial fluid collections. There is a stable right f rontal approach ventriculostomy catheter. Ventricles are normal in size and shape. Brain: There is a mild amount of stable intraparenchymal hemorrhage involving the right parietal lob e, as on series 22 image 31. Stable remote infarctions are seen involving the anterior inferior left frontal lobe and the anterior inferior left temporal lobe. No midline shift. No intracranial masses . Reese-white matter interface is normal. No cause of facial droop can be seen, including no pipe m asses within the parotid glands or along the courses of the facial nerves. Skull and face: Bilateral prostheses are seen, with associated streak artifact. Left-sided craniotom y changes are seen. Calvarium and visualized facial bones are intact, without suspicious lesions. Sinuses: Visualized sinuses and mastoids are clear. IMPRESSION: Limited study demonstrating remote infarctions of the anterior inferior left frontal lob e and left temporal lobe. Stable mild intraparenchymal hemorrhage can be seen involving the right parietal lobe. No noncontrast head CT findings of acute stroke are seen. Note: Case discussed by telephone with Dr. Regine Ross at 10:38 AM [place] time on 01/24/2020. This study fulfills neurological imaging criteria for inclusion or exclusion of acute stroke therapie s based on available published neurological imaging guidelines. Reviewed by: Kingsley Samuel MD on 01/24/2020 10:38 AM [facility] Approved by: Kingsley Samuel MD on 01/24/2020 10:38 AM [facility] Station ID: [id number]
[2020-01-24] MEDS: levETIRAcetam 250 MG TABLET PO SCH (11:43)
[2020-01-24] MEDS: levETIRAcetam INJ 1,000 MG in SODIUM CHLORIDE 0.9% 100ML 100 ML IV SCH ×2 (13:30→20:20)
[2020-01-24] MEDS ORDERED: LIDOCAINE 2% URO-JET 5 ML SYRINGE UR ONE (13:49)
[2020-01-24] MEDS ORDERED: D5NS W/20 MEQ KCL 1,000 ML IV STA (17:16)
[2020-01-24] MEDS: DILTIAZEM 50 MG/10 ML VIAL IVP SCH (17:41)
[2020-01-24] MEDS: POTASSIUM CHLOR 10 MEQ/100 ML 10 MEQ/100 ML BAG IV SCH ×4 (17:42→20:55)
[2020-01-24] MEDS ORDERED: DILTIAZEM 50 MG/10 ML VIAL IVP SCH (18:00)
[2020-01-24] MEDS: METOPROLOL 5 MG/5 ML VIAL IVP SCH (18:44)
[2020-01-24] MEDS ORDERED: METOPROLOL 5 MG/5 ML VIAL IVP STA (20:07)
[2020-01-24] MEDS: traZODone 50 MG TABLET PO SCH (21:01)
[2020-01-25] MEDS: SODIUM CHLORIDE FLUSH 0.9% 10 ML SYRINGE IVP SCH ×3 (00:06→17:58)
[2020-01-25] MEDS: METOPROLOL 5 MG/5 ML VIAL IVP SCH ×3 (00:06→13:30)
[2020-01-25] MEDS: DILTIAZEM 50 MG/10 ML VIAL IVP SCH ×4 (01:36→17:59)
[2020-01-25 05:38] LABS: CALCIUM 8.8 mg/dL (8.5-10.3); MAGNESIUM 1.6 mg/dL (1.7-2.8); PHOSPHORUS 2.3 mg/dL (2.5-4.6)
[2020-01-25] MEDS ORDERED: MAGNESIUM SULFATE 2 GRAM 2 GM/50 ML BAG IV ONE (05:53)
[2020-01-25] MEDS: POTASSIUM CHLOR 10 MEQ/100 ML 10 MEQ/100 ML BAG IV SCH ×4 (06:18→09:59)
[2020-01-25] MEDS ORDERED: SODIUM CHLORIDE 0.9% 500 ML IV ONE (06:50)
[2020-01-25] MEDS ORDERED: SODIUM CHLORIDE 0.9% 1,000 ML IV SCH ×2 (07:00→08:37)
[2020-01-25] MEDS: BUDESONIDE 0.5 MG/2 ML NEB INH SCH ×2 (07:29→21:48)
[2020-01-25] MEDS: FORMOTEROL FUMARATE NEB 20 MCG/2 ML INH SCH ×2 (07:29→21:48)
[2020-01-25] MEDS ORDERED: DIGOXIN 500 MCG/2 ML AMP IVP STA (08:40)
--- NOTE | 2020-01-25 08:51 | PROVIDER PROGRESS NOTE ---
Assessment/Plan - Problem List (1) Altered mental status Qualifiers: Altered mental status type: stupor Qualified Code(s): R40.1 - Stupor Assessment/Plan: His mentation worsened yesterday 01/24/20: he did not awaken for breakfast and then remained lethargic, stuporous all day. Sponsored to a sternal rub was just to open his eyes briefly. He does move all 4 extremities spontaneously. He underwent another head CT yesterday, and no new intracranial pathology was found and he had stable size of the subarachnoid hemorrhage reported. He remains minimally responsive today, he is not able to take a diet or meds reliably. Yesterday all his p.o. meds were stopped and changed to IV. There has been no fever, he moves his head, no nuchal rigidity for LP indication. This AMS is presumably from accumulation of Haldol doses and other meds that were sedative. He cannot undergo a brain MRI because, per the , he has gold implants in both upper eyelids, which were put in because of inability to close his eyes (cranial nerve 7 abnormality?). The oral diet order will also be discontinued today. The told me yesterday that the patient does not want a PEG tube. We could consider NG tube for meds and feeds. Patient is being followed by Palliative Care provider, Brianna Luo NP. Will await further recommendations from her today>>> After the visit with Palliative Care, at 1430, the decision was made by the to place the patient in comfort care, to place a hospice referral order, social work will contact [facility] to determine if he can go there for end-of-life. No further blood draws, no IV fluid orders or vital sign checks and no telemetry will be ordered. Keep the IV in place in order to administer essential meds, continue with saline flushes. We will continue the IV Keppra, to treat seizure history and will start comfort care order set. (2) Acute urinary retention Assessment/Plan: Along with yesterday's mental status change, he did not have ability to urinate, had 600 cc of residual in his bladder. A Ugalde needed to be placed. (3) Atrial flutter with rapid ventricular response Assessment/Plan: Yesterday he had no morning p.o. beta-pool or Cardizem. By the afternoon when his meds were being changed to IV pushes, heart rate was in the 120s to 130s consistently. Today heart rate is still elevated at 130's in Aflutter. Because BP is "soft", will add Digoxin and digitalize the patient. Check a Dig level tomorrow. We will decrease the Cardizem doses, continue the beta-pool doses since he has a cardiomyopathy. The IV rate was increased from 83 to 100 cc an hour after he received a 500 cc bolus of saline this morning. Since the patient has cardiomyopathy with EF of 40 to 45%, fluid rate needs to be handled carefully. Remain in the ICU. (4) Subarachnoid hemorrhage Assessment/Plan: He has had 3 head CTs since admission because of the new altered mental status, which show no change in his subarachnoid hemorrhage size (5) Inclusion body myositis (IBM) Assessment/Plan: As per history. 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 Zyprexa had been added over the past several days because of behavioral disturbances. The Haldol and mirtazapine were stopped concerned about ove rsedated yesterday. (7) Anemia Assessment/Plan: No further blood draws are planned - Current Meds Current Meds: Current Medications Generic Name Dose Route Start Last Admin Trade Name Bradq PRN Reason Stop Dose Admin Budesonide 0.5 mg 01/22/20 19:00 01/25/20 07:29 Pulmicort INH 0.5 mg RTBID HEATHER Administration Diltiazem HCl 10 mg 01/24/20 17:30 01/25/20 01:36 Cardizem IVP 10 mg Q8H HEATHER Administration Formoterol Fumarate 20 mcg 01/22/20 19:00 01/25/20 07:29 Perforomist INH 20 mcg RTBID HEATHER Administration Levetiracetam 1,000 mg/ Sodium 110 mls @ 400 mls/hr 01/24/20 13:00 01/24/20 20:51 Chloride IV Infused BID HEATHER Infusion Potassium Chloride 10 meq in 100 mls @ 100 mls/hr 01/25/20 06:00 01/25/20 08:38 Potassium Chloride IV 01/25/20 09:59 100 mls/hr Q1H HEATHER Administration Protocol Metoprolol Tartrate 2.5 mg 01/24/20 18:00 01/25/20 06:14 Lopressor Inj IVP 2.5 mg Q6HR HEATHER Administration Sodium Chloride 10 ml 01/21/20 01:00 01/25/20 00:06 Normal Saline Flush 0.9% IVP Not Given 0100,0900,1700 HEATHER Sodium Chloride 10 ml 01/20/20 18:24 01/22/20 22:45 Normal Saline Flush 0.9% IVP 10 ml PRN PRN Administration NEEDED PER PROVIDER ORDERS - Lab Result Fish Bone Diagrams: 01/24/20 10:20 01/25/20 05:15 - Additional Planning My Orders: My Active Orders 01/24/20 13:00 levETIRAcetam INJ [Keppra Inj] 1,000 mg Sodium Chloride 0.9% 100Ml [Normal Saline 0.9% 100Ml] 100 ml IV BID 01/24/20 13:49 Ugalde Insertion [RC] QSHIFT 01/24/20 17:30 Diltiazem [Cardizem] 10 mg IVP Q8H 01/24/20 18:00 Metoprolol Inj [Lopressor Inj] 2.5 mg IVP Q6HR 01/25/20 06:00 Potassium Chlor 10 Meq/100 ml [Potassium Chloride] 10 meq in 100 ml IV Q1H 01/25/20 08:37 Sodium Chloride 0.9% [Normal Saline 0.9%] 1,000 ml IV 125 mls/hr 01/25/20 08:38 DIET [NPO] [DIET] 01/25/20 08:40 Digoxin Inj [Lanoxin Inj] 500 mcg IVP ONCE STA 01/25/20 09:00 Potassium Phosphate 15 mmol Sodium Chloride 0.9% [Normal Saline 0.9%] 250 ml IV ONCE 01/25/20 15:00 Digoxin Inj [Lanoxin Inj] 250 mcg IVP ONCE 01/26/20 05:00 CALCIUM [CHEM] DAILYLAB CBC - COMP BLD CT W/AUTO DIFF [HEME] DAILYLAB CMP [COMPREHENSIVE METABOLIC PANEL] [CHEM] DAILYLAB DIGOXIN [CHEM] DAILYLAB MAGNESIUM [CHEM] DAILYLAB PHOSPHORUS [CHEM] DAILYLAB POTASSIUM [CHEM] DAILYLAB 01/27/20 05:00 CALCIUM [CHEM] DAILYLAB CBC - COMP BLD CT W/AUTO DIFF [HEME] DAILYLAB CMP [COMPREHENSIVE METABOLIC PANEL] [CHEM] DAILYLAB MAGNESIUM [CHEM] DAILYLAB PHOSPHORUS [CHEM] DAILYLAB POTASSIUM [CHEM] DAILYLAB 01/28/20 05:00 CBC - COMP BLD CT W/AUTO DIFF [HEME] DAILYLAB CMP [COMPREHENSIVE METABOLIC PANEL] [CHEM] DAILYLAB 01/29/20 05:00 CBC - COMP BLD CT W/AUTO DIFF [HEME] DAILYLAB CMP [COMPREHENSIVE METABOLIC PANEL] [CHEM] DAILYLAB Subjective - Subjective Patient Reports: Other (Awake, says hello) Objective Vital Signs: Vital Signs - 24 hr 01/24/20 01/24/20 01/24/20 09:30 10:00 10:13 Temperature Heart Rate 137 H 108 H Heart Rate [ Monitoring electrodes] Respiratory 35 H 31 H 30 H Rate Blood Pressure Blood Pressure [Left Brachial artery] O2 Saturation 01/24/20 01/24/20 01/24/20 10:16 10:30 11:00 Temperature 37.8 C H Heart Rate 139 H 138 H 142 H Heart Rate [ 140 H 139 H Monitoring electrodes] Respiratory 38 H 34 H 40 H Rate Blood Pressure 141/98 H Blood Pressure 141/98 H 114/83 H [Left Brachial artery] O2 Saturation 89 L 01/24/20 01/24/20 01/24/20 11:01 11:02 11:22 Temperature Heart Rate 141 H 139 H 138 H Heart Rate [ Monitoring electrodes] Respiratory 34 H 28 H 32 H Rate Blood Pressure 141/98 H Blood Pressure [Left Brachial artery] O2 Saturation 01/24/20 01/24/20 01/24/20 11:23 11:30 11:45 Temperature Heart Rate 138 H 103 H 69 Heart Rate [ Monitoring electrodes] Respiratory 38 H 27 H 31 H Rate Blood Pressure 114/83 H 95/71 Blood Pressure [Left Brachial artery] O2 Saturation 01/24/20 01/24/20 01/24/20 11:46 12:00 12:01 Temperature Heart Rate 70 Heart Rate [ 75 70 Monitoring electrodes] Respiratory 29 H 29 H 29 H Rate Blood Pressure 86/57 L Blood Pressure 95/71 86/57 L [Left Brachial artery] O2 Saturation 92 93 01/24/20 01/24/20 01/24/20 12:08 12:15 12:30 Temperature Heart Rate 69 69 69 Heart Rate [ Monitoring electrodes] Respiratory 30 H 28 H 29 H Rate Blood Pressure 90/60 96/60 95/63 Blood Pressure [Left Brachial artery] O2 Saturation 01/24/20 01/24/20 01/24/20 12:46 13:00 13:01 Temperature Heart Rate 86 75 Heart Rate [ 77 Monitoring electrodes] Respiratory 27 H 30 H 27 H Rate Blood Pressure 116/69 120/78 Blood Pressure 120/78 [Left Brachial artery] O2 Saturation 96 01/24/20 01/24/20 01/24/20 13:30 14:00 14:01 Temperature Heart Rate 82 107 H 102 H Heart Rate [ 99 Monitoring electrodes] Respiratory 26 H 27 H 28 H Rate Blood Pressure 113/64 Blood Pressure 113/64 [Left Brachial artery] O2 Saturation 94 01/24/20 01/24/20 01/24/20 14:33 14:59 15:00 Temperature Heart Rate 107 H 86 123 H Heart Rate [ 112 H Monitoring electrodes] Respiratory 26 H 28 H 26 H Rate Blood Pressure 108/78 132/82 H Blood Pressure 132/82 H [Left Brachial artery] O2 Saturation 96 01/24/20 01/24/20 01/24/20 15:22 15:24 15:31 Temperature Heart Rate 137 H 123 H Heart Rate [ Monitoring electrodes] Respiratory 28 H 24 Rate Blood Pressure 106/75 106/75 125/85 H Blood Pressure [Left Brachial artery] O2 Saturation 01/24/20 01/24/20 01/24/20 15:34 15:35 15:36 Temperature Heart Rate 83 85 Heart Rate [ 105 H Monitoring electrodes] Respiratory 29 H Rate Blood Pressure 117/85 H Blood Pressure 125/85 H [Left Brachial artery] O2 Saturation 01/24/20 01/24/20 01/24/20 15:39 15:44 15:45 Temperature Heart Rate 122 H Heart Rate [ 95 86 Monitoring electrodes] Respiratory 19 20 Rate Blood Pressure 100/70 Blood Pressure 117/85 H 100/70 [Left Brachial artery] O2 Saturation 96 01/24/20 01/24/20 01/24/20 15:48 16:00 16:01 Temperature 37.5 C 37.5 C Heart Rate 126 H Heart Rate [ 120 H Monitoring electrodes] Respiratory 22 22 Rate Blood Pressure 106/65 Blood Pressure 106/65 [Left Brachial artery] O2 Saturation 94 01/24/20 01/24/20 01/24/20 16:30 16:38 16:39 Temperature Heart Rate 138 H 136 H 136 H Heart Rate [ Monitoring electrodes] Respiratory 29 H 28 H 29 H Rate Blood Pressure 100/73 Blood Pressure [Left Brachial artery] O2 Saturation 01/24/20 01/24/20 01/24/20 16:57 16:58 16:59 Temperature Heart Rate 137 H 136 H 136 H Heart Rate [ Monitoring electrodes] Respiratory 31 H 28 H 28 H Rate Blood Pressure 135/84 H Blood Pressure [Left Brachial artery] O2 Saturation 01/24/20 01/24/20 01/24/20 17:00 17:01 17:30 Temperature Heart Rate 136 H 136 H 135 H Heart Rate [ 136 H Monitoring electrodes] Respiratory 28 H 29 H 26 H Rate Blood Pressure 121/83 H Blood Pressure 121/83 H [Left Brachial artery] O2 Saturation 93 01/24/20 01/24/20 01/24/20 17:36 17:37 17:59 Temperature Heart Rate 136 H 137 H 83 Heart Rate [ Monitoring electrodes] Respiratory 26 H 28 H 28 H Rate Blood Pressure 102/77 Blood Pressure [Left Brachial artery] O2 Saturation 01/24/20 01/24/20 01/24/20 18:00 18:01 18:30 Temperature Heart Rate 103 H 110 H 128 H Heart Rate [ 111 H Monitoring electrodes] Respiratory 27 H 28 H 27 H Rate Blood Pressure 98/81 H Blood Pressure 98/82 H [Left Brachial artery] O2 Saturation 95 01/24/20 01/24/20 01/24/20 18:31 18:32 18:39 Temperature Heart Rate 126 H 127 H 138 H Heart Rate [ Monitoring electrodes] Respiratory 27 H 28 H 24 Rate Blood Pressure 99/75 Blood Pressure [Left Brachial artery] O2 Saturation 01/24/20 01/24/20 01/24/20 18:40 18:44 18:50 Temperature Heart Rate 139 H 139 H Heart Rate [ 126 H Monitoring electrodes] Respiratory 26 H 29 H Rate Blood Pressure 112/73 112/73 Blood Pressure 105/74 [Left Brachial artery] O2 Saturation 01/24/20 01/24/20 01/24/20 18:51 18:59 19:00 Temperature Heart Rate 136 H 136 H 137 H Heart Rate [ 127 H Monitoring electrodes] Respiratory 26 H 28 H 27 H Rate Blood Pressure 105/74 103/71 Blood Pressure 103/71 [Left Brachial artery] O2 Saturation 93 01/24/20 01/24/20 01/24/20 19:01 19:25 19:30 Temperature Heart Rate 128 H 139 H 139 H Heart Rate [ Monitoring electrodes] Respiratory 35 H 22 28 H Rate Blood Pressure Blood Pressure [Left Brachial artery] O2 Saturation 01/24/20 01/24/20 01/24/20 19:59 20:00 20:01 Temperature 36.8 C Heart Rate 140 H 140 H 140 H Heart Rate [ 139 H Monitoring electrodes] Respiratory 35 H 30 H 32 H Rate Blood Pressure 121/85 H Blood Pressure 121/85 H [Left Brachial artery] O2 Saturation 96 01/24/20 01/24/20 01/24/20 20:30 20:59 21:00 Temperature Heart Rate 139 H 139 H 139 H Heart Rate [ 139 H Monitoring electrodes] Respiratory 30 H 26 H 27 H Rate Blood Pressure 97/69 Blood Pressure 97/69 [Left Brachial artery] O2 Saturation 94 01/24/20 01/24/20 01/24/20 21:01 21:20 21:30 Temperature Heart Rate 140 H 92 139 H Heart Rate [ Monitoring electrodes] Respiratory 27 H 22 23 Rate Blood Pressure Blood Pressure [Left Brachial artery] O2 Saturation 01/24/20 01/24/20 01/24/20 21:59 22:00 22:01 Temperature Heart Rate 93 94 91 Heart Rate [ 93 Monitoring electrodes] Respiratory 28 H 26 H 26 H Rate Blood Pressure 93/63 Blood Pressure 93/63 [Left Brachial artery] O2 Saturation 96 01/24/20 01/24/20 01/24/20 22:30 22:59 23:00 Temperature Heart Rate 139 H 137 H 137 H Heart Rate [ 102 H Monitoring electrodes] Respiratory 24 20 21 Rate Blood Pressure 94/66 Blood Pressure 94/66 [Left Brachial artery] O2 Saturation 95 01/24/20 01/24/20 01/24/20 23:01 23:30 23:59 Temperature Heart Rate 92 137 H 139 H Heart Rate [ Monitoring electrodes] Respiratory 19 24 29 H Rate Blood Pressure Blood Pressure [Left Brachial artery] O2 Saturation 01/25/20 01/25/20 01/25/20 00:00 00:01 00:02 Temperature Heart Rate 138 H 138 H 132 H Heart Rate [ 138 H Monitoring electrodes] Respiratory 28 H 25 H 28 H Rate Blood Pressure 85/70 L 103/77 Blood Pressure 103/77 [Left Brachial artery] O2 Saturation 93 01/25/20 01/25/20 01/25/20 00:06 00:30 00:59 Temperature Heart Rate 138 H 137 H Heart Rate [ Monitoring electrodes] Respiratory 25 H 24 Rate Blood Pressure 103/77 Blood Pressure [Left Brachial artery] O2 Saturation 01/25/20 01/25/20 01/25/20 01:00 01:01 01:30 Temperature Heart Rate 138 H 137 H 138 H Heart Rate [ 137 H Monitoring electrodes] Respiratory 21 19 24 Rate Blood Pressure 88/65 L Blood Pressure 88/65 L [Left Brachial artery] O2 Saturation 96 01/25/20 01/25/20 01/25/20 02:00 02:01 02:30 Temperature Heart Rate 92 76 104 H Heart Rate [ 96 Monitoring electrodes] Respiratory 32 H 23 24 Rate Blood Pressure 92/57 L Blood Pressure 92/57 L [Left Brachial artery] O2 Saturation 95 01/25/20 01/25/20 01/25/20 03:00 03:01 03:30 Temperature Heart Rate 97 112 H 92 Heart Rate [ 117 H Monitoring electrodes] Respiratory 24 24 25 H Rate Blood Pressure 85/61 L Blood Pressure 85/61 L [Left Brachial artery] O2 Saturation 94 01/25/20 01/25/20 01/25/20 03:59 04:00 04:01 Temperature Heart Rate 119 H 127 H 118 H Heart Rate [ 117 H Monitoring electrodes] Respiratory 14 19 17 Rate Blood Pressure 88/59 L Blood Pressure 88/59 L [Left Brachial artery] O2 Saturation 94 01/25/20 01/25/20 01/25/20 04:30 04:59 05:00 Temperature Heart Rate 140 H 140 H 140 H Heart Rate [ 139 H Monitoring electrodes] Respiratory 25 H 28 H 23 Rate Blood Pressure 76/63 L Blood Pressure 99/71 [Left Brachial artery] O2 Saturation 93 01/25/20 01/25/20 01/25/20 05:01 05:02 05:03 Temperature Heart Rate 140 H 141 H 140 H Heart Rate [ Monitoring electrodes] Respiratory 19 21 23 Rate Blood Pressure 79/58 L 78/66 L Blood Pressure [Left Brachial artery] O2 Saturation 01/25/20 01/25/20 01/25/20 05:05 05:06 06:00 Temperature Heart Rate 139 H 139 H Heart Rate [ 139 H Monitoring electrodes] Respiratory 24 28 H 24 Rate Blood Pressure 99/71 Blood Pressure 98/71 [Left Brachial artery] O2 Saturation 96 01/25/20 01/25/20 01/25/20 06:14 07:00 07:30 Temperature 37.5 C Heart Rate 135 H Heart Rate [ 139 H Monitoring electrodes] Respiratory 35 H 21 Rate Blood Pressure 98/71 Blood Pressure 99/71 [Left Brachial artery] O2 Saturation 96 Oxygen O2 Source Nasal cannula I&O (Last 24 Hrs): Intake and Output Totals x24h 01/23/20 01/24/20 01/25/20 23:59 23:59 23:59 Intake Total 300 558.491 5270 Output Total 1195 1643 170 Balance -895 -[phone] General: Alert, Other (Somnolent) HEENT: Mucous membr. moist/pink Neck: Supple, Other ((+) JVD) Neuro: Disoriented, Other (Moving extrem spontaneously) Cardiovascular: No murmurs Respiratory: No respiratory distress Abdomen: Soft Extremities: No edema, No tenderness/swelling - Results Results: Laboratory Results WBC 5.5 x10^3/uL (4.8-10.8) 01/24/20 10:20 RBC 3.98 10^6/uL (4.70-6.10) L 01/24/20 10:20 Hgb 12.7 g/dL (14.0-18.0) L 01/24/20 10:20 Hct 36.1 % (42.0-52.0) L 01/24/20 10:20 MCV 90.7 fL (80.0-94.0) 01/24/20 10:20 MCH 31.9 pg (27.0-31.0) H 01/24/20 10:20 MCHC 35.2 g/dL (32.0-36.0) 01/24/20 10:20 RDW 13.6 % (12.0-15.0) 01/24/20 10:20 Plt Count 116 10^3/uL (130-450) L 01/24/20 10:20 MPV 9.2 fL (7.4-11.4) 01/24/20 10:20 Neut # (Auto) 4.1 10^3/uL (1.5-6.6) 01/24/20 10:20 Lymph # (Auto) 0.6 10^3/uL (1.5-3.5) L 01/24/20 10:20 [place] # (Auto) 0.5 10^3/uL (0.0-1.0) 01/24/20 10:20 Eos # (Auto) 0.2 10^3/uL (0.0-0.7) 01/24/20 10:20 Baso # (Auto) 0.0 10^3/uL (0.0-0.1) 01/24/20 10:20 Absolute Nucleated RBC 0.00 x10^3/uL 01/24/20 10:20 Band Neuts % (Manual) Not Reportable 01/21/20 04:25 Abnorm Lymph % (Manual) Not Reportable 01/21/20 04:25 Nucleated RBC % 0.0 /100WBC 01/24/20 10:20 Neutrophils # (Manual) Not Reportable 01/21/20 04:25 Lymphocytes # (Manual) Not Reportable 01/21/20 04:25 Monocytes # (Manual) Not Reportable 01/21/20 04:25 Eosinophils # (Manual) Not Reportable 01/21/20 04:25 Basophils # (Manual) Not Reportable 01/21/20 04:25 Differential Comment MANUAL=AUTO DIFF 01/21/20 04:25 Manual Slide Review Indicated 01/24/20 10:20 Platelet Estimate DECREASED (<130,000) (NORMAL) 01/21/20 04:25 RBC Morph Micro Appear 2+ ANISOCYTOSIS (NORMAL) 01/24/20 10:20 Sodium 141 mmol/L (135-145) 01/24/20 10:20 Potassium 3.5 mmol/L (3.5-5.0) 01/25/20 05:15 Chloride 111 mmol/L (101-111) 01/24/20 10:20 Carbon Dioxide 19 mmol/L (21-32) L 01/24/20 10:20 Anion Gap 11.0 (6-13) 01/24/20 10:20 BUN 25 mg/dL (6-20) H 01/24/20 10:20 Creatinine 1.1 mg/dL (0.6-1.2) 01/24/20 10:20 Estimated GFR (MDRD) 64 (>89) L 01/24/20 10:20 Glucose 147 mg/dL (70-100) H 01/24/20 10:20 Calcium 8.8 mg/dL (8.5-10.3) 01/25/20 05:15 Phosphorus 2.3 mg/dL (2.5-4.6) L 01/25/20 05:15 Magnesium 1.6 mg/dL (1.7-2.8) L 01/25/20 05:15 Iron 50 ug/dL (45-182) 01/23/20 04:40 TIBC 262 ug/dL (250-450) 01/23/20 04:40 % Saturation 19 % (20-50) L 01/23/20 04:40 Transferrin 187 mg/dL (180-329) 01/23/20 04:40 Total Bilirubin 1.2 mg/dL (0.2-1.0) H 01/21/20 04:25 AST 31 IU/L (10-42) 01/21/20 04:25 ALT 30 IU/L (10-60) 01/21/20 04:25 Alkaline Phosphatase 43 IU/L (42-121) 01/21/20 04:25 Troponin I High Sens 8.5 ng/L (2.3-19.7) 01/20/20 19:25 B-Natriuretic Peptide 495 pg/mL (5-100) H 01/21/20 04:25 Total Protein 6.4 g/dL (6.7-8.2) L 01/21/20 04:25 Albumin 3.7 g/dL (3.2-5.5) 01/21/20 04:25 Globulin 2.7 g/dL (2.1-4.2) 01/21/20 04:25 Albumin/Globulin Ratio 1.4 (1.0-2.2) 01/21/20 04:25 Lipase 49 U/L (22-51) 01/20/20 14:18 Vitamin B12 662 pg/mL (180-914) 01/23/20 04:40 Folate 12.95 ng/mL (5.90 - >24.8) 01/23/20 04:40 TSH 1.50 uIU/mL (0.34-5.60) 01/20/20 14:18 Nasal Screen MRSA (PCR) NEGATIVE (NEGATIVE) 01/20/20 19:15 Ethyl Alcohol < 5.0 mg/dL 01/20/20 14:18 Coronavirus (PCR) NEGATIVE 01/22/20 12:00 - Procedures Procedures: Procedures INSPECTION OF LOWER INTESTINAL TRACT, ENDO (03/11/19)
[2020-01-25] MEDS ORDERED: POTASSIUM PHOSPHATE 15 MMOL in SODIUM CHLORIDE 0.9% 250 ML IV ONE (09:00)
[2020-01-25] MEDS: levETIRAcetam INJ 1,000 MG in SODIUM CHLORIDE 0.9% 100ML 100 ML IV SCH ×2 (09:49→21:49)
[2020-01-25] MEDS ORDERED: HALOPERIDOL 5 MG/ML VIAL SUBQ PRN (14:38)
[2020-01-25] MEDS ORDERED: MORPHINE 2 MG/ML CARPUJECT IVP PRN (14:38)
[2020-01-25] MEDS ORDERED: GLYCOPYRROLATE 1 MG/5 ML VIAL SUBQ PRN (14:38)
[2020-01-25] MEDS ORDERED: HALOPERIDOL 5 MG/ML VIAL IVP PRN (14:38)
[2020-01-25] MEDS ORDERED: ONDANSETRON 4 MG/2 ML VIAL IVP PRN (14:38)
[2020-01-25] MEDS ORDERED: DIGOXIN 500 MCG/2 ML AMP IVP SCH (15:00)
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
[2020-01-25] MEDS: SCOPOLAMINE PATCH TOP SCH ×2 (17:58→18:03)
[2020-01-26] MEDS: DILTIAZEM 50 MG/10 ML VIAL IVP SCH ×2 (01:44→10:13)
[2020-01-26] MEDS: SODIUM CHLORIDE FLUSH 0.9% 10 ML SYRINGE IVP SCH ×2 (01:45→10:14)
[2020-01-26] MEDS: polyethylene glycoL 3350 17 GM PACKET PO SCH (10:12)
[2020-01-26] MEDS: SENNA 8.6 MG TABLET PO SCH (10:13)
[2020-01-26] MEDS: LORazepam 0.5 MG TABLET PO PRN ×2 (10:13→18:38)
[2020-01-26] MEDS: MORPHINE SOL 10 MG/0.5 ML ORAL SYRINGE PO PRN ×2 (10:14→18:37)
[2020-01-26] MEDS: levETIRAcetam INJ 1,000 MG in SODIUM CHLORIDE 0.9% 100ML 100 ML IV SCH ×2 (11:27→21:57)
--- NOTE | 2020-01-26 11:48 | PROVIDER PROGRESS NOTE ---
Assessment/Plan - Problem List (1) Comfort measures only status Assessment/Plan: Patient had palliative care consult. The patient's , DPOA requests, focus on patient's comfortable measure only status. order morphine and ativan PRN. Patient hopes to discharge patient with hospice care, referral to hospice care, consult with social work and we seek for replacement for patient's hospice care (2) Acute urinary retention continue Ugalde catheter care. (3) Atrial flutter with rapid ventricular response Assessment/Plan: Since IV Cardizem control well for HR, sine Patient confused and declined to take oral medication, so we will continue intravenous Cardizem He cannot get anticoagulation because of a subarachnoid hemorrhage (4) Subarachnoid hemorrhage Assessment/Plan: Stable in repeat CT scanning of the brain. There was a fall at home about 2 weeks before this hospitalization (5) Inclusion body myositis (IBM) Assessment/Plan: stable, continue comfort measure. He is followed by neurology. He has proximal muscle weakness, uses a walker for ambulation. PT is on hold now because of his somnolence and change in neuro status today (6) Dementia with behavioral disturbance Assessment/Plan: Patient is still very confused, he stated why a lady in the TV to talk with him. 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 stop the PRN Haldol and stop mirtazapine, because he is oversedated today. continue comfort measure (7) Anemia Assessment/Plan: stable, continue comfort measure (8) COPD (chronic obstructive pulmonary disease) Assessment/Plan: stable (9) Hypothyroidism Assessment/Plan: stable, (10) Hypertension Assessment/Plan: Blood pressure under control on current combination of meds (11) Hx of seizure disorder Assessment/Plan: stable, He is on Keppra for this, will need to get this dosed IV today (12) Hyperlipidemia Assessment/Plan: He is on a statin for this, it will be paused for now until he awakens (13) BEAVER (hard of hearing) Assessment/Plan: Continue with his right-sided hearing aid (14) Hypokalemia Assessment/Plan: resolved. (15) Severe protein-calorie malnutrition Assessment/Plan: continue diet, and nurse support. Prior to this hospitalization he had failure to thrive and significantly decreased oral intake. This is adding to his dehydration and his weakness. - Current Meds Current Meds: Current Medications Generic Name Dose Route Start Last Admin Trade Name Freq PRN Reason Stop Dose Admin Budesonide 0.5 mg 01/22/20 19:00 01/25/20 21:48 Pulmicort INH 0.5 mg RTBID HEATHER Administration Diltiazem HCl 5 mg 01/25/20 09:02 01/26/20 10:13 Cardizem IVP 5 mg Q8H HEATHER Administration Formoterol Fumarate 20 mcg 01/22/20 19:00 01/25/20 21:48 Perforomist INH 20 mcg RTBID HEATHER Administration Levetiracetam 1,000 mg/ Sodium 110 mls @ 400 mls/hr 01/24/20 13:00 01/26/20 11:44 Chloride IV Infused BID HEATHER Infusion Lorazepam 0.5 mg 01/26/20 08:19 01/26/20 10:13 Ativan PO 0.5 mg Q6H PRN Administration Anxiety Morphine Sulfate 10 mg 01/26/20 08:22 01/26/20 10:14 Roxanol PO 10 mg Q4HR PRN Administration PAIN Polyethylene Glycol 17 gm 01/26/20 09:00 01/26/20 10:12 Miralax PO 17 gm DAILY HEATHER Administration Scopolamine HBr 1 patch 01/25/20 15:00 01/25/20 18:03 Transderm-Scop TOP Not Given Q3D HEATHER Senna 8.6 - 17.2 mg 01/26/20 09:00 01/26/20 10:13 Senokot PO 17.2 mg DAILY HEATHER Administration Sodium Chloride 10 ml 01/21/20 01:00 01/26/20 10:14 Normal Saline Flush 0.9% IVP 10 ml 0100,0900,1700 HEATHER Administration Sodium Chloride 10 ml 01/20/20 18:24 01/22/20 22:45 Normal Saline Flush 0.9% IVP 10 ml PRN PRN Administration NEEDED PER PROVIDER ORDERS - Lab Result Fish Bone Diagrams: 01/24/20 10:20 01/25/20 05:15 - Additional Planning My Orders: My Active Orders 01/26/20 Social Work Consult [CONS] Routine 01/26/20 08:19 LORazepam [Ativan] 0.5 mg PO Q6H PRN 01/26/20 08:22 Morphine Oral Soln [Roxanol] 10 mg PO Q4HR PRN 01/26/20 Lunch Soft Mechanical Diet [DIET] Subjective - Subjective Nursing Reports: Confused Objective Vital Signs: Vital Signs - 24 hr 01/25/20 01/25/20 01/25/20 12:00 12:01 12:30 Temperature Heart Rate 77 91 126 H Heart Rate [ 77 Monitoring electrodes] Respiratory 20 30 H 26 H Rate Blood Pressure 119/68 Blood Pressure 119/68 [Left Brachial artery] O2 Saturation 94 01/25/20 01/25/20 01/25/20 13:00 13:01 14:01 Temperature Heart Rate 128 H 102 H 98 Heart Rate [ Monitoring electrodes] Respiratory 29 H 19 28 H Rate Blood Pressure 116/76 129/61 Blood Pressure [Left Brachial artery] O2 Saturation 01/25/20 01/25/20 01/25/20 14:30 15:00 15:30 Temperature Heart Rate 142 H 133 H 106 H Heart Rate [ 132 H Monitoring electrodes] Respiratory 31 H 27 H 26 H Rate Blood Pressure 135/92 H Blood Pressure 135/92 H [Left Brachial artery] O2 Saturation 01/25/20 01/25/20 01/25/20 15:34 16:00 17:00 Temperature 36.9 C Heart Rate 109 H Heart Rate [ 97 107 H Monitoring electrodes] Respiratory 22 17 Rate Blood Pressure Blood Pressure 135/81 H 102/58 L [Left Brachial artery] O2 Saturation 100 01/26/20 01/26/20 01/26/20 00:46 01:49 09:28 Temperature 36.4 C L 36.3 C L Heart Rate Heart Rate [ 89 74 95 Monitoring electrodes] Respiratory 20 16 Rate Blood Pressure Blood Pressure 129/66 135/65 H 139/72 H [Left Brachial artery] O2 Saturation 93 93 Oxygen O2 Source Room air I&O (Last 24 Hrs): Intake and Output Totals x24h 01/24/20 01/25/20 01/26/20 23:59 23:59 23:59 Intake Total 233.480 8496 110 Output Total 1643 741 950 Balance -7945.774 0676 -840 General: Alert, No acute distress HEENT: Atraumatic Neck: Supple Lymphatic: no adenopathy Neuro: Alert, Disoriented Cardiovascular: Normal S1, Normal S2 Respiratory: Chest non-tender, No respiratory distress Abdomen: Normal bowel sounds, Soft Extremities: Normal pulses - Results Results: Laboratory Results WBC 5.5 x10^3/uL (4.8-10.8) 01/24/20 10:20 RBC 3.98 10^6/uL (4.70-6.10) L 01/24/20 10:20 Hgb 12.7 g/dL (14.0-18.0) L 01/24/20 10:20 Hct 36.1 % (42.0-52.0) L 01/24/20 10:20 MCV 90.7 fL (80.0-94.0) 01/24/20 10:20 MCH 31.9 pg (27.0-31.0) H 01/24/20 10:20 MCHC 35.2 g/dL (32.0-36.0) 01/24/20 10:20 RDW 13.6 % (12.0-15.0) 01/24/20 10:20 Plt Count 116 10^3/uL (130-450) L 01/24/20 10:20 MPV 9.2 fL (7.4-11.4) 01/24/20 10:20 Neut # (Auto) 4.1 10^3/uL (1.5-6.6) 01/24/20 10:20 Lymph # (Auto) 0.6 10^3/uL (1.5-3.5) L 01/24/20 10:20 Cocke # (Auto) 0.5 10^3/uL (0.0-1.0) 01/24/20 10:20 Eos # (Auto) 0.2 10^3/uL (0.0-0.7) 01/24/20 10:20 Baso # (Auto) 0.0 10^3/uL (0.0-0.1) 01/24/20 10:20 Absolute Nucleated RBC 0.00 x10^3/uL 01/24/20 10:20 Band Neuts % (Manual) Not Reportable 01/21/20 04:25 Abnorm Lymph % (Manual) Not Reportable 01/21/20 04:25 Nucleated RBC % 0.0 /100WBC 01/24/20 10:20 Neutrophils # (Manual) Not Reportable 01/21/20 04:25 Lymphocytes # (Manual) Not Reportable 01/21/20 04:25 Monocytes # (Manual) Not Reportable 01/21/20 04:25 Eosinophils # (Manual) Not Reportable 01/21/20 04:25 Basophils # (Manual) Not Reportable 01/21/20 04:25 Differential Comment MANUAL=AUTO DIFF 01/21/20 04:25 Manual Slide Review Indicated 01/24/20 10:20 Platelet Estimate DECREASED (<130,000) (NORMAL) 01/21/20 04:25 RBC Morph Micro Appear 2+ ANISOCYTOSIS (NORMAL) 01/24/20 10:20 Sodium 141 mmol/L (135-145) 01/24/20 10:20 Potassium 3.5 mmol/L (3.5-5.0) 01/25/20 05:15 Chloride 111 mmol/L (101-111) 01/24/20 10:20 Carbon Dioxide 19 mmol/L (21-32) L 01/24/20 10:20 Anion Gap 11.0 (6-13) 01/24/20 10:20 BUN 25 mg/dL (6-20) H 01/24/20 10:20 Creatinine 1.1 mg/dL (0.6-1.2) 01/24/20 10:20 Estimated GFR (MDRD) 64 (>89) L 01/24/20 10:20 Glucose 147 mg/dL (70-100) H 01/24/20 10:20 POC Whole Bld Glucose 74 mg/dL (70 - 100) 01/26/20 07:56 Calcium 8.8 mg/dL (8.5-10.3) 01/25/20 05:15 Phosphorus 2.3 mg/dL (2.5-4.6) L 01/25/20 05:15 Magnesium 1.6 mg/dL (1.7-2.8) L 01/25/20 05:15 Iron 50 ug/dL (45-182) 01/23/20 04:40 TIBC 262 ug/dL (250-450) 01/23/20 04:40 % Saturation 19 % (20-50) L 01/23/20 04:40 Transferrin 187 mg/dL (180-329) 01/23/20 04:40 Total Bilirubin 1.2 mg/dL (0.2-1.0) H 01/21/20 04:25 AST 31 IU/L (10-42) 01/21/20 04:25 ALT 30 IU/L (10-60) 01/21/20 04:25 Alkaline Phosphatase 43 IU/L (42-121) 01/21/20 04:25 Troponin I High Sens 8.5 ng/L (2.3-19.7) 01/20/20 19:25 B-Natriuretic Peptide 495 pg/mL (5-100) H 01/21/20 04:25 Total Protein 6.4 g/dL (6.7-8.2) L 01/21/20 04:25 Albumin 3.7 g/dL (3.2-5.5) 01/21/20 04:25 Globulin 2.7 g/dL (2.1-4.2) 01/21/20 04:25 Albumin/Globulin Ratio 1.4 (1.0-2.2) 01/21/20 04:25 Lipase 49 U/L (22-51) 01/20/20 14:18 Vitamin B12 662 pg/mL (180-914) 01/23/20 04:40 Folate 12.95 ng/mL (5.90 - >24.8) 01/23/20 04:40 TSH 1.50 uIU/mL (0.34-5.60) 01/20/20 14:18 Nasal Screen MRSA (PCR) NEGATIVE (NEGATIVE) 01/20/20 19:15 Ethyl Alcohol < 5.0 mg/dL 01/20/20 14:18 Coronavirus (PCR) NEGATIVE 01/22/20 12:00 - Procedures Procedures: Procedures INSPECTION OF LOWER INTESTINAL TRACT, ENDO (03/11/19) Sepsis Event Note (H) - Evaluation Current Stage of Sepsis: Ruled out ABX Reporting Has patient been on IV antibiotics over the past 48 hours?: No Current Medications - Current Medications Current Medications: Active Medications Atropine Sulfate (Isopto Atropine 1% Ophth Drops) 1 - 4 drops SL Q2H PRN PRN Reason: Excessive secretions Budesonide (Pulmicort) 0.5 mg INH RTBID HEATHER Last Admin: 01/25/20 21:48 Dose: 0.5 mg Documented by: Carboxymethylcellulose (Refresh 1% Ophth Drops) 1 drops EACHEYE QID PRN PRN Reason: Dry Eye Diltiazem HCl (Cardizem) 5 mg IVP Q8H [facility] Last Admin: 01/26/20 10:13 Dose: 5 mg Documented by: Formoterol Fumarate (Perforomist) 20 mcg INH RTBID [facility] Last Admin: 01/25/20 21:48 Dose: 20 mcg Documented by: Glycopyrrolate (Robinul) 0.2 mg SUBQ Q4H PRN PRN Reason: Excessive secretions Levetiracetam 1,000 mg/ Sodium (Chloride) 110 mls @ 400 mls/hr IV BID [facility] Last Infusion: 01/26/20 11:44 Dose: Infused Documented by: Lorazepam (Ativan) 0.5 mg PO Q6H PRN PRN Reason: Anxiety Last Admin: 01/26/20 10:13 Dose: 0.5 mg Documented by: Morphine Sulfate (Roxanol) 10 mg PO Q4HR PRN PRN Reason: PAIN Last Admin: 01/26/20 10:14 Dose: 10 mg Documented by: Ondansetron HCl (Zofran Inj) 4 mg IVP Q8H PRN PRN Reason: Nausea / Vomiting Polyethylene Glycol (Miralax) 17 gm PO DAILY [facility] Last Admin: 01/26/20 10:12 Dose: 17 gm Documented by: Scopolamine HBr (Transderm-Scop) 1 patch TOP Q3D [facility] Last Admin: 01/25/20 18:03 Dose: Not Given Documented by: Senna (Senokot) 8.6 - 17.2 mg PO DAILY [facility] Last Admin: 01/26/20 10:13 Dose: 17.2 mg Documented by: Sodium Chloride (Normal Saline Flush 0.9%) 10 ml IVP 0100,0900,1700 [facility] Last Admin: 01/26/20 10:14 Dose: 10 ml Documented by: Sodium Chloride (Normal Saline Flush 0.9%) 10 ml IVP PRN PRN PRN Reason: NEEDED PER PROVIDER ORDERS Last Admin: 01/22/20 22:45 Dose: 10 ml Documented by: Aspirin 325 mg PO DAILY 08/20/15 Levothyroxine [Synthroid] 75 mcg PO DAILY 08/20/15 Nitroglycerin [Nitrostat] 0.4 mg [id number] TITR PRN 07/18/16 Atorvastatin [Lipitor] 10 mg PO QPM 09/11/19 Calcium Carbonate [Calcium] 600 mg PO BID 09/11/19 Fluticasone Propion/Salmeterol [Wixela 100-50 Inhub] 1 puffs IN BID 09/11/19 Metoprolol Succinate 50 mg PO BID 12/14/19 Levetiracetam [Keppra] 1,000 mg PO BID 12/17/19 Mirtazapine 7.5 mg PO QPM 01/11/20
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
[2020-01-26] MEDS: BUDESONIDE 0.5 MG/2 ML NEB INH SCH (22:00)
[2020-01-26] MEDS: FORMOTEROL FUMARATE NEB 20 MCG/2 ML INH SCH (22:01)
[2020-01-27] MEDS: SCOPOLAMINE PATCH TOP SCH (00:26)
[2020-01-27] MEDS: MORPHINE SOL 10 MG/0.5 ML ORAL SYRINGE PO PRN ×2 (04:31→08:45)
[2020-01-27] MEDS: polyethylene glycoL 3350 17 GM PACKET PO SCH (08:43)
[2020-01-27] MEDS: levETIRAcetam INJ 1,000 MG in SODIUM CHLORIDE 0.9% 100ML 100 ML IV SCH ×2 (08:43→23:11)
[2020-01-27] MEDS: ATROPINE 1% OPHTH DROPS 2 ML SL PRN (08:44)
[2020-01-27] MEDS: SENNA 8.6 MG TABLET PO SCH (08:44)
[2020-01-27] MEDS: CARBOXYMETHYLCELLULOSE OPHTH DROPS EACHEYE PRN (10:00)
--- NOTE | 2020-01-27 14:04 | PROVIDER PROGRESS NOTE ---
Assessment/Plan - Problem List (1) Comfort measures only status Assessment/Plan: Per social work, called patient's family and the patient's daughter. For discharge hospice care, Patient's daughter may come back to home to take care of patient with follow with hospice care, or d/c to [facility] with hospice care. Social work will help for patient disposition. Continue comfortable management in hospital We will switch Keppra to p.o. From intravenous. Patient had palliative care consult. The patient's , DPOA requests, focus on patient's comfortable measure only status. order morphine and ativan PRN. Patient hopes to discharge patient with hospice care, referral to hospice care, consult with social work and we seek for replacement for patient's hospice care (2) Acute urinary retention continue Ugal[place] catheter care. (3) Atrial flutter with rapid ventricular response Assessment/Plan: Since IV Cardizem control well for HR, sine Patient confused and declined to take oral medication, so we will continue intravenous Cardizem He cannot get anticoagulation because of a subarachnoid hemorrhage (4) Subarachnoid hemorrhage Assessment/Plan: Stable in repeat CT scanning of the brain. There was a fall at home about 2 weeks before this hospitalization (5) Inclusion body myositis (IBM) Assessment/Plan: stable, continue comfort measure. He is followed by neurology. He has proximal muscle weakness, uses a walker for ambulation. PT is on hold now because of his somnolence and change in neuro status today (6) Dementia with behavioral disturbance Assessment/Plan: Patient is still very confused, he stated why a lady in the TV to talk with him. 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 stop the PRN Haldol and stop mirtazapine, because he is oversedated today. continue comfort measure (7) Anemia Assessment/Plan: stable, continue comfort measure (8) COPD (chronic obstructive pulmonary disease) Assessment/Plan: stable (9) Hypothyroidism Assessment/Plan: stable, (10) Hypertension Assessment/Plan: Blood pressure under control on current combination of meds (11) Hx of seizure disorder Assessment/Plan: We will switch to PO Keppra. (12) Hyperlipidemia Assessment/Plan: He is on a statin for this, it will be paused for now until he awakens (13) [place] (hard of hearing) Assessment/Plan: Continue with his right-sided hearing aid (14) Hypokalemia Assessment/Plan: resolved. (15) Severe protein-calorie malnutrition Assessment/Plan: continue diet, and nurse support. Prior to this hospitalization he had failure to thrive and significantly decreased oral intake. This is adding to his dehydration and his weakness. - Current Meds Current Meds: Current Medications Generic Name Dose Route Start Last Admin Trade Name Freq PRN Reason Stop Dose Admin Atropine Sulfate 1 - 4 drops 01/25/20 14:38 01/27/20 08:44 Isopto Atropine 1% Ophth Drops SL 4 drops Q2H PRN Administration Excessive secretions Carboxymethylcellulose 1 drops 01/25/20 14:38 01/27/20 10:00 Refresh 1% Ophth Drops EACHEYE 1 drops QID PRN Administration Dry Eye Glycopyrrolate 0.2 mg 01/25/20 14:38 01/27/20 10:00 Robinul SUBQ 0.2 mg Q4H PRN Administration Excessive secretions Lorazepam 0.5 mg 01/26/20 08:19 01/26/20 18:38 Ativan PO 0.5 mg Q6H PRN Administration Anxiety Morphine Sulfate 10 mg 01/26/20 08:22 01/27/20 08:45 Roxanol PO 10 mg Q4HR PRN Administration PAIN Polyethylene Glycol 17 gm 01/26/20 09:00 01/27/20 08:43 Miralax PO 17 gm DAILY HEATHER Administration Scopolamine HBr 1 patch 01/26/20 23:00 01/27/20 00:26 Transderm-Scop TOP 1 patch Q3D HEATHER Administration Senna 8.6 - 17.2 mg 01/26/20 09:00 01/27/20 08:44 Senokot PO Not Given DAILY HEATHER - Lab Result Fish Bone Diagrams: 01/24/20 10:20 01/25/20 05:15 - Additional Planning My Orders: My Active Orders 01/26/20 15:01 Miscellaenous Nursing Order [RC] PRN 01/27/20 21:00 levETIRAcetam [Keppra] 1,000 mg PO BID Subjective - Subjective Nursing Reports: No Complaints Objective Vital Signs: Vital Signs - 24 hr 01/26/20 01/27/20 01/27/20 16:48 00:41 08:22 Temperature 36.5 C 36.9 C 36.4 C L Heart Rate [ 96 90 93 Brachial] Respiratory 24 24 19 Rate Blood Pressure 141/74 H 129/73 132/79 H [Right Brachial artery] O2 Saturation 93 92 93 Oxygen O2 Source Room air I&O (Last 24 Hrs): Intake and Output Totals x24h 01/25/20 01/26/20 01/27/20 23:59 23:59 23:59 Intake Total 3647 220 110 Output Total 741 1585 425 Balance 6116 -6787 -647 General: Alert, No acute distress HEENT: Atraumatic Neck: Supple Neuro: Alert Cardiovascular: Regular rate, Normal S1, Normal S2 Respiratory: Chest non-tender, No respiratory distress Abdomen: Normal bowel sounds, Soft Extremities: Normal pulses - Results Results: Laboratory Results WBC 5.5 x10^3/uL (4.8-10.8) 01/24/20 10:20 RBC 3.98 10^6/uL (4.70-6.10) L 01/24/20 10:20 Hgb 12.7 g/dL (14.0-18.0) L 01/24/20 10:20 Hct 36.1 % (42.0-52.0) L 01/24/20 10:20 MCV 90.7 fL (80.0-94.0) 01/24/20 10:20 MCH 31.9 pg (27.0-31.0) H 01/24/20 10:20 MCHC 35.2 g/dL (32.0-36.0) 01/24/20 10:20 RDW 13.6 % (12.0-15.0) 01/24/20 10:20 Plt Count 116 10^3/uL (130-450) L 01/24/20 10:20 MPV 9.2 fL (7.4-11.4) 01/24/20 10:20 Neut # (Auto) 4.1 10^3/uL (1.5-6.6) 01/24/20 10:20 Lymph # (Auto) 0.6 10^3/uL (1.5-3.5) L 01/24/20 10:20 [place] # (Auto) 0.5 10^3/uL (0.0-1.0) 01/24/20 10:20 Eos # (Auto) 0.2 10^3/uL (0.0-0.7) 01/24/20 10:20 Baso # (Auto) 0.0 10^3/uL (0.0-0.1) 01/24/20 10:20 Absolute Nucleated RBC 0.00 x10^3/uL 01/24/20 10:20 Band Neuts % (Manual) Not Reportable 01/21/20 04:25 Abnorm Lymph % (Manual) Not Reportable 01/21/20 04:25 Nucleated RBC % 0.0 /100WBC 01/24/20 10:20 Neutrophils # (Manual) Not Reportable 01/21/20 04:25 Lymphocytes # (Manual) Not Reportable 01/21/20 04:25 Monocytes # (Manual) Not Reportable 01/21/20 04:25 Eosinophils # (Manual) Not Reportable 01/21/20 04:25 Basophils # (Manual) Not Reportable 01/21/20 04:25 Differential Comment MANUAL=AUTO DIFF 01/21/20 04:25 Manual Slide Review Indicated 01/24/20 10:20 Platelet Estimate DECREASED (<130,000) (NORMAL) 01/21/20 04:25 RBC Morph Micro Appear 2+ ANISOCYTOSIS (NORMAL) 01/24/20 10:20 Sodium 141 mmol/L (135-145) 01/24/20 10:20 Potassium 3.5 mmol/L (3.5-5.0) 01/25/20 05:15 Chloride 111 mmol/L (101-111) 01/24/20 10:20 Carbon Dioxide 19 mmol/L (21-32) L 01/24/20 10:20 Anion Gap 11.0 (6-13) 01/24/20 10:20 BUN 25 mg/dL (6-20) H 01/24/20 10:20 Creatinine 1.1 mg/dL (0.6-1.2) 01/24/20 10:20 Estimated GFR (MDRD) 64 (>89) L 01/24/20 10:20 Glucose 147 mg/dL (70-100) H 01/24/20 10:20 POC Whole Bld Glucose 74 mg/dL (70 - 100) 01/26/20 07:56 Calcium 8.8 mg/dL (8.5-10.3) 01/25/20 05:15 Phosphorus 2.3 mg/dL (2.5-4.6) L 01/25/20 05:15 Magnesium 1.6 mg/dL (1.7-2.8) L 01/25/20 05:15 Iron 50 ug/dL (45-182) 01/23/20 04:40 TIBC 262 ug/dL (250-450) 01/23/20 04:40 % Saturation 19 % (20-50) L 01/23/20 04:40 Transferrin 187 mg/dL (180-329) 01/23/20 04:40 Total Bilirubin 1.2 mg/dL (0.2-1.0) H 01/21/20 04:25 AST 31 IU/L (10-42) 01/21/20 04:25 ALT 30 IU/L (10-60) 01/21/20 04:25 Alkaline Phosphatase 43 IU/L (42-121) 01/21/20 04:25 Troponin I High Sens 8.5 ng/L (2.3-19.7) 01/20/20 19:25 B-Natriuretic Peptide 495 pg/mL (5-100) H 01/21/20 04:25 Total Protein 6.4 g/dL (6.7-8.2) L 01/21/20 04:25 Albumin 3.7 g/dL (3.2-5.5) 01/21/20 04:25 Globulin 2.7 g/dL (2.1-4.2) 01/21/20 04:25 Albumin/Globulin Ratio 1.4 (1.0-2.2) 01/21/20 04:25 Lipase 49 U/L (22-51) 01/20/20 14:18 Vitamin B12 662 pg/mL (180-914) 01/23/20 04:40 Folate 12.95 ng/mL (5.90 - >24.8) 01/23/20 04:40 TSH 1.50 uIU/mL (0.34-5.60) 01/20/20 14:18 Nasal Screen MRSA (PCR) NEGATIVE (NEGATIVE) 01/20/20 19:15 Ethyl Alcohol < 5.0 mg/dL 01/20/20 14:18 Coronavirus (PCR) NEGATIVE 01/22/20 12:00 - Procedures Procedures: Procedures INSPECTION OF LOWER INTESTINAL TRACT, ENDO (03/11/19) Sepsis Event Note (H) - Evaluation Current Stage of Sepsis: Ruled out ABX Reporting Has patient been on IV antibiotics over the past 48 hours?: No Current Medications - Current Medications Current Medications: Active Medications Atropine Sulfate (Isopto Atropine 1% Ophth Drops) 1 - 4 drops SL Q2H PRN PRN Reason: Excessive secretions Last Admin: 01/27/20 08:44 Dose: 4 drops Documented by: Carboxymethylcellulose (Refresh 1% Ophth Drops) 1 drops EACHEYE QID PRN PRN Reason: Dry Eye Last Admin: 01/27/20 10:00 Dose: 1 drops Documented by: Glycopyrrolate (Robinul) 0.2 mg SUBQ Q4H PRN PRN Reason: Excessive secretions Last Admin: 01/27/20 10:00 Dose: 0.2 mg Documented by: Levetiracetam (Keppra) 1,000 mg PO BID [facility] Lorazepam (Ativan) 0.5 mg PO Q6H PRN PRN Reason: Anxiety Last Admin: 01/26/20 18:38 Dose: 0.5 mg Documented by: Morphine Sulfate (Roxanol) 10 mg PO Q4HR PRN PRN Reason: PAIN Last Admin: 01/27/20 08:45 Dose: 10 mg Documented by: Ondansetron HCl (Zofran Inj) 4 mg IVP Q8H PRN PRN Reason: Nausea / Vomiting Polyethylene Glycol (Miralax) 17 gm PO DAILY [facility] Last Admin: 01/27/20 08:43 Dose: 17 gm Documented by: Scopolamine HBr (Transderm-Scop) 1 patch TOP Q3D [facility] Last Admin: 01/27/20 00:26 Dose: 1 patch Documented by: Senna (Senokot) 8.6 - 17.2 mg PO DAILY [facility] Last Admin: 01/27/20 08:44 Dose: Not Given Documented by: Aspirin 325 mg PO DAILY 08/20/15 Levothyroxine [Synthroid] 75 mcg PO DAILY 08/20/15 Nitroglycerin [Nitrostat] 0.4 mg [id number] TITR PRN 07/18/16 Atorvastatin [Lipitor] 10 mg PO QPM 09/11/19 Calcium Carbonate [Calcium] 600 mg PO BID 09/11/19 Fluticasone Propion/Salmeterol [Wixela 100-50 Inhub] 1 puffs IN BID 09/11/19 Metoprolol Succinate 50 mg PO BID 12/14/19 Levetiracetam [Keppra] 1,000 mg PO BID 12/17/19 Mirtazapine 7.5 mg PO QPM 01/11/20
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
[2020-01-27] MEDS: levETIRAcetam 500 MG/5 ML UDC PO SCH ×2 (21:22→21:28)
[2020-01-28] MEDS: SENNA 8.6 MG TABLET PO SCH (10:42)
[2020-01-28] MEDS: polyethylene glycoL 3350 17 GM PACKET PO SCH (10:42)
[2020-01-28] MEDS: levETIRAcetam INJ 1,000 MG in SODIUM CHLORIDE 0.9% 100ML 100 ML IV SCH ×2 (10:42→20:53)
[2020-01-28] MEDS: CARBOXYMETHYLCELLULOSE OPHTH DROPS EACHEYE PRN (10:48)
--- NOTE | 2020-01-28 12:33 | PROVIDER PROGRESS NOTE ---
Assessment/Plan - Problem List (1) Comfort measures only status Assessment/Plan: 11/27,Patient is dependent for replacement for hospice care. Per social work, We will discuss with patient if She could take patient to home tomorrow and hospice will follow up Saturday and her daughter will come back Saturday. Hospice equipment will be delivered on today. Continue comfortable measure. Per social work, called patient's family and the patient's daughter. For discharge hospice care, Patient's daughter may come back to home to take care of patient with follow with hospice care, or d/c to [facility] with hospice care. Social work will help for patient disposition. Continue comfortable management in hospital We will switch Keppra to p.o. From intravenous. Patient had palliative care consult. The patient's , DPOA requests, focus on patient's comfortable measure only status. order morphine and ativan PRN. Patient hopes to discharge patient with hospice care, referral to hospice care, consult with social work and we seek for replacement for patient's hospice care (2) Acute urinary retention continue Ugal[place] catheter care. (3) Atrial flutter with rapid ventricular response Assessment/Plan: Since IV Cardizem control well for HR, sine Patient confused and declined to take oral medication, so we will continue intravenous Cardizem He cannot get anticoagulation because of a subarachnoid hemorrhage (4) Subarachnoid hemorrhage Assessment/Plan: Stable in repeat CT scanning of the brain. There was a fall at home about 2 weeks before this hospitalization (5) Inclusion body myositis (IBM) Assessment/Plan: stable, continue comfort measure. He is followed by neurology. He has proximal muscle weakness, uses a walker for ambulation. PT is on hold now because of his somnolence and change in neuro status today (6) Dementia with behavioral disturbance Assessment/Plan: Patient is still very confused, he stated why a lady in the TV to talk with him. 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 stop the PRN Haldol and stop mirtazapine, because he is oversedated today. continue comfort measure (7) Anemia Assessment/Plan: stable, continue comfort measure (8) COPD (chronic obstructive pulmonary disease) Assessment/Plan: stable (9) Hypothyroidism Assessment/Plan: stable, (10) Hypertension Assessment/Plan: Blood pressure under control on current combination of meds (11) Hx of seizure disorder Assessment/Plan: We will switch to PO Keppra. (12) Hyperlipidemia Assessment/Plan: He is on a statin for this, it will be paused for now until he awakens (13) [place] (hard of hearing) Assessment/Plan: Continue with his right-sided hearing aid (14) Hypokalemia Assessment/Plan: resolved. (15) Severe protein-calorie malnutrition Assessment/Plan: continue diet, and nurse support. Prior to this hospitalization he had failure to thrive and significantly decreased oral intake. This is adding to his dehydration and his weakness. - Current Meds Current Meds: Current Medications Generic Name Dose Route Start Last Admin Trade Name Freq PRN Reason Stop Dose Admin Atropine Sulfate 1 - 4 drops 01/25/20 14:38 01/27/20 08:44 Isopto Atropine 1% Ophth Drops SL 4 drops Q2H PRN Administration Excessive secretions Carboxymethylcellulose 1 drops 01/25/20 14:38 01/28/20 10:48 Refresh 1% Ophth Drops EACHEYE 1 drops QID PRN Administration Dry Eye Glycopyrrolate 0.2 mg 01/25/20 14:38 01/27/20 10:00 Robinul SUBQ 0.2 mg Q4H PRN Administration Excessive secretions Levetiracetam 1,000 mg/ Sodium 110 mls @ 400 mls/hr 01/27/20 23:00 01/28/20 11:13 Chloride IV Infused BID HEATHER Infusion Lorazepam 0.5 mg 01/26/20 08:19 01/26/20 18:38 Ativan PO 0.5 mg Q6H PRN Administration Anxiety Morphine Sulfate 10 mg 01/26/20 08:22 01/27/20 08:45 Roxanol PO 10 mg Q4HR PRN Administration PAIN Polyethylene Glycol 17 gm 01/26/20 09:00 01/28/20 10:42 Miralax PO 17 gm DAILY HEATHER Administration Scopolamine HBr 1 patch 01/26/20 23:00 01/27/20 00:26 Transderm-Scop TOP 1 patch Q3D HEATHER Administration Senna 8.6 - 17.2 mg 01/26/20 09:00 01/28/20 10:42 Senokot PO 17.2 mg DAILY HEATHER Administration - Lab Result Fish Bone Diagrams: 01/24/20 10:20 08/17/20 05:15 Subjective - Subjective Nursing Reports: No Complaints Objective Vital Signs: Vital Signs - 24 hr 01/27/20 01/27/20 01/28/20 15:59 23:46 08:22 Temperature 36.9 C 37.1 C 36.3 C L Heart Rate [ 105 H 100 95 Brachial] Respiratory 24 22 24 Rate Blood Pressure 144/78 H 139/81 H 129/69 [Right Brachial artery] O2 Saturation 92 93 94 Oxygen O2 Source Room air I&O (Last 24 Hrs): Intake and Output Totals x24h 01/26/20 01/27/20 01/28/20 23:59 23:59 23:59 Intake Total 220 110 420 Output Total 1475 725 275 Balance -1255 -615 145 General: Alert, No acute distress HEENT: Atraumatic Neck: Supple Neuro: Alert Cardiovascular: Normal S1, Normal S2 Respiratory: Chest non-tender, No respiratory distress Abdomen: Normal bowel sounds, Soft - Results Results: Laboratory Results WBC 5.5 x10^3/uL (4.8-10.8) 01/24/20 10:20 RBC 3.98 10^6/uL (4.70-6.10) L 01/24/20 10:20 Hgb 12.7 g/dL (14.0-18.0) L 01/24/20 10:20 Hct 36.1 % (42.0-52.0) L 01/24/20 10:20 MCV 90.7 fL (80.0-94.0) 01/24/20 10:20 MCH 31.9 pg (27.0-31.0) H 01/24/20 10:20 MCHC 35.2 g/dL (32.0-36.0) 01/24/20 10:20 RDW 13.6 % (12.0-15.0) 01/24/20 10:20 Plt Count 116 10^3/uL (130-450) L 01/24/20 10:20 MPV 9.2 fL (7.4-11.4) 01/24/20 10:20 Neut # (Auto) 4.1 10^3/uL (1.5-6.6) 01/24/20 10:20 Lymph # (Auto) 0.6 10^3/uL (1.5-3.5) L 01/24/20 10:20 Marshall # (Auto) 0.5 10^3/uL (0.0-1.0) 01/24/20 10:20 Eos # (Auto) 0.2 10^3/uL (0.0-0.7) 01/24/20 10:20 Baso # (Auto) 0.0 10^3/uL (0.0-0.1) 01/24/20 10:20 Absolute Nucleated RBC 0.00 x10^3/uL 01/24/20 10:20 Band Neuts % (Manual) Not Reportable 01/21/20 04:25 Abnorm Lymph % (Manual) Not Reportable 01/21/20 04:25 Nucleated RBC % 0.0 /100WBC 01/24/20 10:20 Neutrophils # (Manual) Not Reportable 01/21/20 04:25 Lymphocytes # (Manual) Not Reportable 01/21/20 04:25 Monocytes # (Manual) Not Reportable 01/21/20 04:25 Eosinophils # (Manual) Not Reportable 01/21/20 04:25 Basophils # (Manual) Not Reportable 01/21/20 04:25 Differential Comment MANUAL=AUTO DIFF 01/21/20 04:25 Manual Slide Review Indicated 01/24/20 10:20 Platelet Estimate DECREASED (<130,000) (NORMAL) 01/21/20 04:25 RBC Morph Micro Appear 2+ ANISOCYTOSIS (NORMAL) 01/24/20 10:20 Sodium 141 mmol/L (135-145) 01/24/20 10:20 Potassium 3.5 mmol/L (3.5-5.0) 01/25/20 05:15 Chloride 111 mmol/L (101-111) 01/24/20 10:20 Carbon Dioxide 19 mmol/L (21-32) L 01/24/20 10:20 Anion Gap 11.0 (6-13) 01/24/20 10:20 BUN 25 mg/dL (6-20) H 01/24/20 10:20 Creatinine 1.1 mg/dL (0.6-1.2) 01/24/20 10:20 Estimated GFR (MDRD) 64 (>89) L 01/24/20 10:20 Glucose 147 mg/dL (70-100) H 01/24/20 10:20 POC Whole Bld Glucose 74 mg/dL (70 - 100) 01/26/20 07:56 Calcium 8.8 mg/dL (8.5-10.3) 01/25/20 05:15 Phosphorus 2.3 mg/dL (2.5-4.6) L 01/25/20 05:15 Magnesium 1.6 mg/dL (1.7-2.8) L 01/25/20 05:15 Iron 50 ug/dL (45-182) 01/23/20 04:40 TIBC 262 ug/dL (250-450) 01/23/20 04:40 % Saturation 19 % (20-50) L 01/23/20 04:40 Transferrin 187 mg/dL (180-329) 01/23/20 04:40 Total Bilirubin 1.2 mg/dL (0.2-1.0) H 01/21/20 04:25 AST 31 IU/L (10-42) 01/21/20 04:25 ALT 30 IU/L (10-60) 01/21/20 04:25 Alkaline Phosphatase 43 IU/L (42-121) 01/21/20 04:25 Troponin I High Sens 8.5 ng/L (2.3-19.7) 01/20/20 19:25 B-Natriuretic Peptide 495 pg/mL (5-100) H 01/21/20 04:25 Total Protein 6.4 g/dL (6.7-8.2) L 01/21/20 04:25 Albumin 3.7 g/dL (3.2-5.5) 01/21/20 04:25 Globulin 2.7 g/dL (2.1-4.2) 01/21/20 04:25 Albumin/Globulin Ratio 1.4 (1.0-2.2) 01/21/20 04:25 Lipase 49 U/L (22-51) 01/20/20 14:18 Vitamin B12 662 pg/mL (180-914) 01/23/20 04:40 Folate 12.95 ng/mL (5.90 - >24.8) 01/23/20 04:40 TSH 1.50 uIU/mL (0.34-5.60) 01/20/20 14:18 Nasal Screen MRSA (PCR) NEGATIVE (NEGATIVE) 01/20/20 19:15 Ethyl Alcohol < 5.0 mg/dL 01/20/20 14:18 Coronavirus (PCR) NEGATIVE 01/22/20 12:00 - Procedures Procedures: Procedures INSPECTION OF LOWER INTESTINAL TRACT, ENDO (03/11/19) Sepsis Event Note (H) - Evaluation Current Stage of Sepsis: Ruled out ABX Reporting Has patient been on IV antibiotics over the past 48 hours?: No Current Medications - Current Medications Current Medications: Active Medications Atropine Sulfate (Isopto Atropine 1% Ophth Drops) 1 - 4 drops SL Q2H PRN PRN Reason: Excessive secretions Last Admin: 01/27/20 08:44 Dose: 4 drops Documented by: Carboxymethylcellulose (Refresh 1% Ophth Drops) 1 drops EACHEYE QID PRN PRN Reason: Dry Eye Last Admin: 01/28/20 10:48 Dose: 1 drops Documented by: Glycopyrrolate (Robinul) 0.2 mg SUBQ Q4H PRN PRN Reason: Excessive secretions Last Admin: 01/27/20 10:00 Dose: 0.2 mg Documented by: Levetiracetam 1,000 mg/ Sodium (Chloride) 110 mls @ 400 mls/hr IV BID [facility] Last Infusion: 01/28/20 11:13 Dose: Infused Documented by: Lorazepam (Ativan) 0.5 mg PO Q6H PRN PRN Reason: Anxiety Last Admin: 01/26/20 18:38 Dose: 0.5 mg Documented by: Morphine Sulfate (Roxanol) 10 mg PO Q4HR PRN PRN Reason: PAIN Last Admin: 01/27/20 08:45 Dose: 10 mg Documented by: Ondansetron HCl (Zofran Inj) 4 mg IVP Q8H PRN PRN Reason: Nausea / Vomiting Polyethylene Glycol (Miralax) 17 gm PO DAILY [facility] Last Admin: 01/28/20 10:42 Dose: 17 gm Documented by: Scopolamine HBr (Transderm-Scop) 1 patch TOP Q3D [facility] Last Admin: 01/27/20 00:26 Dose: 1 patch Documented by: Senna (Senokot) 8.6 - 17.2 mg PO DAILY [facility] Last Admin: 01/28/20 10:42 Dose: 17.2 mg Documented by: Aspirin 325 mg PO DAILY 08/20/15 Levothyroxine [Synthroid] 75 mcg PO DAILY 08/20/15 Nitroglycerin [Nitrostat] 0.4 mg [id number] TITR PRN 07/18/16 Atorvastatin [Lipitor] 10 mg PO QPM 09/11/19 Calcium Carbonate [Calcium] 600 mg PO BID 09/11/19 Fluticasone Propion/Salmeterol [Wixela 100-50 Inhub] 1 puffs IN BID 09/11/19 Metoprolol Succinate 50 mg PO BID 12/14/19 Levetiracetam [Keppra] 1,000 mg PO BID 12/17/19 Mirtazapine 7.5 mg PO QPM 01/11/20
[2020-01-28] MEDS: LORazepam 0.5 MG TABLET PO PRN ×2 (13:36→20:45)
[2020-01-28] MEDS: MORPHINE SOL 10 MG/0.5 ML ORAL SYRINGE PO PRN ×2 (16:29→20:45)
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
[2020-01-28] MEDS: ATROPINE 1% OPHTH DROPS 2 ML SL PRN (20:04)
[2020-01-28] MEDS ORDERED: SODIUM CHLORIDE 0.9% 100ML 100 ML IV ONE ×2 (20:48→20:50)
[2020-01-29] MEDS: MORPHINE SOL 10 MG/0.5 ML ORAL SYRINGE PO PRN ×5 (09:00→22:30)
[2020-01-29] MEDS: CARBOXYMETHYLCELLULOSE OPHTH DROPS EACHEYE PRN ×2 (09:00→12:44)
[2020-01-29] MEDS: levETIRAcetam 500 MG/5 ML UDC PO SCH ×2 (09:03→20:42)
[2020-01-29] MEDS: SENNA 8.6 MG TABLET PO SCH (09:04)
[2020-01-29] MEDS: polyethylene glycoL 3350 17 GM PACKET PO SCH (09:04)
--- NOTE | 2020-01-29 11:42 | PROVIDER PROGRESS NOTE ---
Assessment/Plan - Problem List (1) Comfort measures only status Assessment/Plan: 11/28 Patient Has fever in the morning, respiration rate and heart rate are fast. we will update pt's family about the pt's conditions. otherwise we will continue the plan to d/c home on tomorrow with hospice care. continue comfortable measure. 11/27,Patient is dependent for replacement for hospice care. Per social work, We will discuss with patient if She could take patient to home tomorrow and hospice will follow up Saturday and her daughter will come back Saturday. Hospice equipment will be delivered on today. Continue comfortable measure. Per social work, called patient's family and the patient's daughter. For discharge hospice care, Patient's daughter may come back to home to take care of patient with follow with hospice care, or d/c to [facility] with hospice care. Social work will help for patient disposition. Continue comfortable management in hospital We will switch Keppra to p.o. From intravenous. Patient had palliative care consult. The patient's , DPOA requests, focus on patient's comfortable measure only status. order morphine and ativan PRN. Patient hopes to discharge patient with hospice care, referral to hospice care, consult with social work and we seek for replacement for patient's hospice care (2) Acute urinary retention continue Ugalde catheter care. (3) Atrial flutter with rapid ventricular response Assessment/Plan: Since IV Cardizem control well for HR, sine Patient confused and declined to take oral medication, so we will continue intravenous Cardizem He cannot get anticoagulation because of a subarachnoid hemorrhage (4) Subarachnoid hemorrhage Assessment/Plan: Stable in repeat CT scanning of the brain. There was a fall at home about 2 weeks before this hospitalization (5) Inclusion body myositis (IBM) Assessment/Plan: stable, continue comfort measure. He is followed by neurology. He has proximal muscle weakness, uses a walker for ambulation. PT is on hold now because of his somnolence and change in neuro status today (6) Dementia with behavioral disturbance Assessment/Plan: Patient is still very confused, he stated why a lady in the TV to talk with him. 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 stop the PRN Haldol and stop mirtazapine, because he is oversedated today. continue comfort measure (7) Anemia Assessment/Plan: stable, continue comfort measure (8) COPD (chronic obstructive pulmonary disease) Assessment/Plan: stable (9) Hypothyroidism Assessment/Plan: stable, (10) Hypertension Assessment/Plan: Blood pressure under control on current combination of meds (11) Hx of seizure disorder Assessment/Plan: We will switch to PO Keppra. (12) Hyperlipidemia Assessment/Plan: He is on a statin for this, it will be paused for now until he awakens (13) [place] (hard of hearing) Assessment/Plan: Continue with his right-sided hearing aid (14) Hypokalemia Assessment/Plan: resolved. (15) Severe protein-calorie malnutrition Assessment/Plan: continue diet, and nurse support. Prior to this hospitalization he had failure to thrive and significantly decreased oral intake. This is adding to his dehydration and his weakness. - Current Meds Current Meds: Current Medications Generic Name Dose Route Start Last Admin Trade Name Freq PRN Reason Stop Dose Admin Atropine Sulfate 1 - 4 drops 01/25/20 14:38 01/28/20 20:04 Isopto Atropine 1% Ophth Drops SL 4 drops Q2H PRN Administration Excessive secretions Carboxymethylcellulose 1 drops 01/25/20 14:38 01/29/20 09:00 Refresh 1% Ophth Drops EACHEYE 1 drops QID PRN Administration Dry Eye Glycopyrrolate 0.2 mg 01/25/20 14:38 01/27/20 10:00 Robinul SUBQ 0.2 mg Q4H PRN Administration Excessive secretions Levetiracetam 1,000 mg 01/29/20 09:00 01/29/20 09:03 Keppra PO Not Given BID HEATHER Lorazepam 0.5 mg 01/26/20 08:19 01/28/20 20:45 Ativan PO 0.5 mg Q6H PRN Administration Anxiety Morphine Sulfate 10 mg 01/26/20 08:22 01/29/20 09:00 Roxanol PO 10 mg Q4HR PRN Administration PAIN Polyethylene Glycol 17 gm 01/26/20 09:00 01/29/20 09:04 Miralax PO Not Given DAILY HEATHER Scopolamine HBr 1 patch 01/26/20 23:00 01/27/20 00:26 Transderm-Scop TOP 1 patch Q3D HEATHER Administration Senna 8.6 - 17.2 mg 01/26/20 09:00 01/29/20 09:04 Senokot PO Not Given DAILY HEATHER - Lab Result Fish Bone Diagrams: 01/24/20 10:20 01/25/20 05:15 - Additional Planning My Orders: My Active Orders 01/29/20 09:00 levETIRAcetam [Keppra] 1,000 mg PO BID Subjective - Subjective Nursing Reports: No Complaints Objective Vital Signs: Vital Signs - 24 hr 01/28/20 01/28/20 01/29/20 16:18 16:31 00:11 Temperature 37.0 C 36.9 C Heart Rate [ 99 Apical] Heart Rate [ 122 H 118 H Brachial] Respiratory 25 H 24 24 Rate Blood Pressure 135/84 H 157/91 H [Right Brachial artery] O2 Saturation 96 93 92 01/29/20 08:34 Temperature 39.2 C H Heart Rate [ Apical] Heart Rate [ 133 H Brachial] Respiratory 42 H Rate Blood Pressure 135/71 H [Right Brachial artery] O2 Saturation 87 L Oxygen O2 Source Room air I&O (Last 24 Hrs): Intake and Output Totals x24h 01/27/20 01/28/20 01/29/20 23:59 23:59 23:59 Intake Total 110 630 10 Output Total 725 750 400 Balance -615 -120 -390 General: Alert, Moderate distress HEENT: Atraumatic Neck: Supple Neuro: Alert Respiratory: Chest non-tender Abdomen: Normal bowel sounds, Soft - Results Results: Laboratory Results WBC 5.5 x10^3/uL (4.8-10.8) 01/24/20 10:20 RBC 3.98 10^6/uL (4.70-6.10) L 01/24/20 10:20 Hgb 12.7 g/dL (14.0-18.0) L 01/24/20 10:20 Hct 36.1 % (42.0-52.0) L 01/24/20 10:20 MCV 90.7 fL (80.0-94.0) 01/24/20 10:20 MCH 31.9 pg (27.0-31.0) H 01/24/20 10:20 MCHC 35.2 g/dL (32.0-36.0) 08/16/20 10:20 RDW 13.6 % (12.0-15.0) 01/24/20 10:20 Plt Count 116 10^3/uL (130-450) L 01/24/20 10:20 MPV 9.2 fL (7.4-11.4) 01/24/20 10:20 Neut # (Auto) 4.1 10^3/uL (1.5-6.6) 01/24/20 10:20 Lymph # (Auto) 0.6 10^3/uL (1.5-3.5) L 01/24/20 10:20 [place] # (Auto) 0.5 10^3/uL (0.0-1.0) 01/24/20 10:20 Eos # (Auto) 0.2 10^3/uL (0.0-0.7) 01/24/20 10:20 Baso # (Auto) 0.0 10^3/uL (0.0-0.1) 01/24/20 10:20 Absolute Nucleated RBC 0.00 x10^3/uL 01/24/20 10:20 Band Neuts % (Manual) Not Reportable 01/21/20 04:25 Abnorm Lymph % (Manual) Not Reportable 01/21/20 04:25 Nucleated RBC % 0.0 /100WBC 01/24/20 10:20 Neutrophils # (Manual) Not Reportable 01/21/20 04:25 Lymphocytes # (Manual) Not Reportable 01/21/20 04:25 Monocytes # (Manual) Not Reportable 01/21/20 04:25 Eosinophils # (Manual) Not Reportable 01/21/20 04:25 Basophils # (Manual) Not Reportable 01/21/20 04:25 Differential Comment MANUAL=AUTO DIFF 01/21/20 04:25 Manual Slide Review Indicated 01/24/20 10:20 Platelet Estimate DECREASED (<130,000) (NORMAL) 01/21/20 04:25 RBC Morph Micro Appear 2+ ANISOCYTOSIS (NORMAL) 01/24/20 10:20 Sodium 141 mmol/L (135-145) 01/24/20 10:20 Potassium 3.5 mmol/L (3.5-5.0) 01/25/20 05:15 Chloride 111 mmol/L (101-111) 01/24/20 10:20 Carbon Dioxide 19 mmol/L (21-32) L 01/24/20 10:20 Anion Gap 11.0 (6-13) 01/24/20 10:20 BUN 25 mg/dL (6-20) H 01/24/20 10:20 Creatinine 1.1 mg/dL (0.6-1.2) 01/24/20 10:20 Estimated GFR (MDRD) 64 (>89) L 01/24/20 10:20 Glucose 147 mg/dL (70-100) H 01/24/20 10:20 POC Whole Bld Glucose 74 mg/dL (70 - 100) 01/26/20 07:56 Calcium 8.8 mg/dL (8.5-10.3) 01/25/20 05:15 Phosphorus 2.3 mg/dL (2.5-4.6) L 01/25/20 05:15 Magnesium 1.6 mg/dL (1.7-2.8) L 01/25/20 05:15 Iron 50 ug/dL (45-182) 01/23/20 04:40 TIBC 262 ug/dL (250-450) 01/23/20 04:40 % Saturation 19 % (20-50) L 01/23/20 04:40 Transferrin 187 mg/dL (180-329) 01/23/20 04:40 Total Bilirubin 1.2 mg/dL (0.2-1.0) H 01/21/20 04:25 AST 31 IU/L (10-42) 01/21/20 04:25 ALT 30 IU/L (10-60) 01/21/20 04:25 Alkaline Phosphatase 43 IU/L (42-121) 01/21/20 04:25 Troponin I High Sens 8.5 ng/L (2.3-19.7) 01/20/20 19:25 B-Natriuretic Peptide 495 pg/mL (5-100) H 01/21/20 04:25 Total Protein 6.4 g/dL (6.7-8.2) L 01/21/20 04:25 Albumin 3.7 g/dL (3.2-5.5) 01/21/20 04:25 Globulin 2.7 g/dL (2.1-4.2) 01/21/20 04:25 Albumin/Globulin Ratio 1.4 (1.0-2.2) 01/21/20 04:25 Lipase 49 U/L (22-51) 01/20/20 14:18 Vitamin B12 662 pg/mL (180-914) 01/23/20 04:40 Folate 12.95 ng/mL (5.90 - >24.8) 01/23/20 04:40 TSH 1.50 uIU/mL (0.34-5.60) 01/20/20 14:18 Nasal Screen MRSA (PCR) NEGATIVE (NEGATIVE) 01/20/20 19:15 Ethyl Alcohol < 5.0 mg/dL 01/20/20 14:18 Coronavirus (PCR) NEGATIVE 01/22/20 12:00 - Procedures Procedures: Procedures INSPECTION OF LOWER INTESTINAL TRACT, ENDO (03/11/19) ABX Reporting Has patient been on IV antibiotics over the past 48 hours?: No Current Medications - Current Medications Current Medications: Active Medications Atropine Sulfate (Isopto Atropine 1% Ophth Drops) 1 - 4 drops SL Q2H PRN PRN Reason: Excessive secretions Last Admin: 01/28/20 20:04 Dose: 4 drops Documented by: Carboxymethylcellulose (Refresh 1% Ophth Drops) 1 drops EACHEYE QID PRN PRN Reason: Dry Eye Last Admin: 01/29/20 09:00 Dose: 1 drops Documented by: Glycopyrrolate (Robinul) 0.2 mg SUBQ Q4H PRN PRN Reason: Excessive secretions Last Admin: 01/27/20 10:00 Dose: 0.2 mg Documented by: Levetiracetam (Keppra) 1,000 mg PO BID [facility] Last Admin: 01/29/20 09:03 Dose: Not Given Documented by: Lorazepam (Ativan) 0.5 mg PO Q6H PRN PRN Reason: Anxiety Last Admin: 01/28/20 20:45 Dose: 0.5 mg Documented by: Morphine Sulfate (Roxanol) 10 mg PO Q4HR PRN PRN Reason: PAIN Last Admin: 01/29/20 09:00 Dose: 10 mg Documented by: Ondansetron HCl (Zofran Inj) 4 mg IVP Q8H PRN PRN Reason: Nausea / Vomiting Polyethylene Glycol (Miralax) 17 gm PO DAILY [facility] Last Admin: 01/29/20 09:04 Dose: Not Given Documented by: Scopolamine HBr (Transderm-Scop) 1 patch TOP Q3D [facility] Last Admin: 01/27/20 00:26 Dose: 1 patch Documented by: Diaz (Senokot) 8.6 - 17.2 mg PO DAILY [facility] Last Admin: 01/29/20 09:04 Dose: Not Given Documented by: Aspirin 325 mg PO DAILY 08/20/15 Levothyroxine [Synthroid] 75 mcg PO DAILY 08/20/15 Nitroglycerin [Nitrostat] 0.4 mg [id number] TITR PRN 07/18/16 Atorvastatin [Lipitor] 10 mg PO QPM 09/11/19 Calcium Carbonate [Calcium] 600 mg PO BID 09/11/19 Fluticasone Propion/Salmeterol [Wixela 100-50 Inhub] 1 puffs IN BID 09/11/19 Metoprolol Succinate 50 mg PO BID 12/14/19 Levetiracetam [Keppra] 1,000 mg PO BID 12/17/19 Mirtazapine 7.5 mg PO QPM 01/11/20
[2020-01-29] MEDS: LORazepam 0.5 MG TABLET SL PRN (19:20)
[2020-01-29] MEDS ORDERED: levETIRAcetam INJ 1,000 MG in SODIUM CHLORIDE 0.9% 100ML 100 ML IV STA (20:41)
[2020-01-30] MEDS: ATROPINE 1% OPHTH DROPS 2 ML SL PRN ×4 (00:49→22:49)
[2020-01-30] MEDS: SCOPOLAMINE PATCH TOP SCH (00:49)
[2020-01-30] MEDS: MORPHINE SOL 10 MG/0.5 ML ORAL SYRINGE PO PRN ×6 (03:07→22:49)
[2020-01-30] MEDS: LORazepam 0.5 MG TABLET SL PRN (06:47)
--- NOTE | 2020-01-30 10:39 | Discharge Plan ---
Discharge Plan Problem Reviewed?: Yes Disposition: 20 Diet: Regular Activity Restrictions: Activity as Tolerated Shower Restrictions: No Driving Restrictions: Yes (no driving) Additional Instructions or Follow Up instructions: Discharge plan was for January 29. At the last second, family was not prepared to take the patient home. He on January 30. No Smoking: If you smoke, Please STOP! Call for help. Follow-up with: Estelita Campos PA-C [Primary Care Provider] -
[2020-01-30] MEDS: SENNA 8.6 MG TABLET PO SCH (11:11)
[2020-01-30] MEDS: polyethylene glycoL 3350 17 GM PACKET PO SCH (11:11)
[2020-01-30] MEDS: levETIRAcetam 500 MG/5 ML UDC PO SCH ×2 (11:11→20:22)
--- NOTE | 2020-01-30 17:49 | PROVIDER PROGRESS NOTE ---
Subjective - Prog Note Date Prog Note Date: 01/30/20 Prog Note Time: 17:46 Current Medications - Current Medications Current Medications: Active Medications Atropine Sulfate (Isopto Atropine 1% Ophth Drops) 1 - 4 drops SL Q2H PRN PRN Reason: Excessive secretions Last Admin: 01/30/20 16:51 Dose: 2 drops Documented by: Carboxymethylcellulose (Refresh 1% Ophth Drops) 1 drops EACHEYE QID PRN PRN Reason: Dry Eye Last Admin: 01/29/20 12:44 Dose: 1 drops Documented by: Glycopyrrolate (Robinul) 0.2 mg SUBQ Q4H PRN PRN Reason: Excessive secretions Last Admin: 01/27/20 10:00 Dose: 0.2 mg Documented by: Levetiracetam (Keppra) 1,000 mg PO BID [facility] Last Admin: 01/30/20 11:11 Dose: Not Given Documented by: Lorazepam (Ativan) 0.5 mg PO Q6H PRN PRN Reason: Anxiety Last Admin: 01/28/20 20:45 Dose: 0.5 mg Documented by: Lorazepam (Ativan) 0.5 mg SL Q4H PRN PRN Reason: Anxiety Last Admin: 01/30/20 06:47 Dose: 0.5 mg Documented by: Morphine Sulfate (Roxanol) 10 mg PO Q1H PRN PRN Reason: PAIN Last Admin: 01/30/20 16:51 Dose: 10 mg Documented by: Ondansetron HCl (Zofran Inj) 4 mg IVP Q8H PRN PRN Reason: Nausea / Vomiting Polyethylene Glycol (Miralax) 17 gm PO DAILY [facility] Last Admin: 01/30/20 11:11 Dose: Not Given Documented by: Scopolamine HBr (Transderm-Scop) 1 patch TOP Q3D [facility] Last Admin: 01/30/20 00:49 Dose: Not Given Documented by: Senna (Senokot) 8.6 - 17.2 mg PO DAILY [facility] Last Admin: 01/30/20 11:11 Dose: Not Given Documented by: Levothyroxine [Synthroid] 75 mcg PO DAILY 08/20/15 Nitroglycerin [Nitrostat] 0.4 mg [id number] TITR PRN 07/18/16 Atorvastatin [Lipitor] 10 mg PO QPM 09/11/19 Calcium Carbonate [Calcium] 600 mg PO BID 09/11/19 Fluticasone Propion/Salmeterol [Wixela 100-50 Inhub] 1 puffs IN BID 09/11/19 Metoprolol Succinate 50 mg PO BID 12/14/19 Levetiracetam [Keppra] 1,000 mg PO BID 12/17/19 Mirtazapine 7.5 mg PO QPM 01/11/20 Objective - Vital Signs/Intake & Output Reviewed Vital Signs: Yes Vital Signs: Vital Signs x48h Temp Pulse Resp BP Pulse Ox 01/30/20 16:21 151 H 30 H 84 L 01/30/20 15:00 37.1 C 153 H 22 118/66 87 L Intake & Output: Intake & Output 01/27/20 01/28/20 01/29/20 01/30/20 23:59 23:59 23:59 23:59 Intake Total 110 630 120 0 Output Total 725 750 525 180 Balance -615 -120 -405 -180 - Objective General Appearance: positive: Other (Unresponsive elderly gentleman, eyes half open, phlegmy gurgling respirations with diffuse rhonchi on lung exam. Overall appears cachectic. occasional episodes of apnea. Daughter and at the bedside.) - Lab Results Fish Bones: 01/24/20 10:20 01/25/20 05:15 Sepsis Event Note (H) - Evaluation Current Stage of Sepsis: Ruled out Assessment/Plan - Problem List (1) Comfort measures only status Impression: 01/29: There has been a [id number] communication with regards to when he can be opened up to hospice since the . For hospice, unfortunate, has had a a large volume of intake of patients. They were unable to open the patient on the . We have been waiting for an opportunity. Then it became a matter of the family waiting for the equipment to be delivered and was not delivered yesterday. It was able to be delivered today but there was miscommunication and it could not be delivered at an appropriate time today. The patient appears to be imminently dying. Daughter has flown in from [place] and is now here. She is a nurse. Plan is for the patient to remain here today since he cannot get equipment at home. He does appear to be imminently dying and that he has been unresponsive, occasional agonal respirations. Coarse gurgly lung sounds. Scopolamine patch on board. 01/28 Patient Has fever in the morning, respiration rate and heart rate are fast. we will update pt's family about the pt's conditions. otherwise we will continue the plan to d/c home on tomorrow with hospice care. continue comfortable measure. 01/27,Patient is dependent for replacement for hospice care. Per social work, We will discuss with patient if She could take patient to home tomorrow and hospice will follow up Saturday and her daughter will come back Saturday. Hospice equipment will be delivered on today. Continue comfortable measure. 01/26: Per social work, called patient's family and the patient's daughter. For discharge hospice care, Patient's daughter may come back to home to take care of patient with follow with hospice care, or d/c to [facility] with hospice care. Social work will help for patient disposition. Continue comfortable management in hospital We will switch Keppra to p.o. From intravenous. Patient had palliative care consult. The patient's , DPOA requests, focus on patient's comfortable measure only status. order morphine and ativan PRN. Patient hopes to discharge patient with hospice care, referral to hospice c are, consult with social work and we seek for replacement for patient's hospice care
[2020-01-30 21:16] VITALS: BP 124/58
[2020-01-31] MEDS: MORPHINE SOL 10 MG/0.5 ML ORAL SYRINGE PO PRN (01:21)
--- NOTE | 2020-01-31 05:28 | DISCHARGE SUMMARY ---
"Discharge Summary Admit Date: 01/20/20 Discharge Date: 01/31/20 Discharging Provider: Augustus Brooke Primary Care Provider: Estelita Campos Code Status: Do Not Attempt Resuscitation Discharge Disposition: 20 - DIAGNOSES Admission Diagnoses: Subarachnoid hemorrhage Atrial flutter with rapid ventricular response Hypothyroidism Hypertension Hyperlipidemia History of seizure disorder COPD Discharge Diagnoses with Status of Each Condition: Subarachnoid hemorrhage Atrial flutter with rapid ventricular response Inclusion body myositis Dementia with behavioral disturbance Seizure disorder COPD Coronary artery disease [employer] shunt in place Hypothyroidism Hypertension - HPI History of Present Illness: H&P per Dr. Trinh: According to the HPI of the ED physicians H&P patient is an 79-year-old male who was brought in with complaint of confusion for the past 3 to 4 days and unsteady gait. It is reported that his noticed that he was having wondering anxious questions and he seemed more off balance. The patient reported that he fell within the past 2 weeks and currently complains of some headache. Objectively he was found to be in atrial fibrillation with rapid ventricular rhythm and a heart rate as high as 130. He was initially treated with diltiazem IV to which he responded well. However over time his heart rate increased back to the 130. As part of the full work-up for his headache he had a CT scan of the brain done which showed A small right parietal subarachnoid hemorrhage. As a result of the above he was admitted for further treatment and evaluation. At bedside he was awake and resting comfortably however he is not able to provide any significant history because of being very hard of hearing and confused. However he denied any chest pain, dyspnea, abdominal pain, nausea, vomiting, fever or chills. - CONSULTS | PROCEDURES Consultations: Palliative, Hospice, Social Work Procedures: CT of the head without contrast on January 19 showed a small focus of subarachnoid hemorrhage present within the right parietal sulci. CT the head without contrast on January 22 showed stable right parietal lobe intraparenchymal hemorrhage. No evidence of acute or interval stroke can be seen. Remote infarction can be seen involving the anterior inferior left frontal lobe and anterior inferior left temporal lobe, with volume loss and encephalomalacia. CT of the head on January 23 without contrast was limited study which showed rem ote infarctions as previously identified. Stable mild intraparenchymal hemorrhage involving the right parietal lobe. No findings of acute stroke. CTA of the head on January 19 shows stable appearance of a small right parietal subarachnoid hemorrhage. Moderate grade stenosis of the cavernous portions of the bilateral internal carotid arteries secondary to atheromatous calcification. No other hemodynamically significant stenosis. No occlusion or aneurysm. - HOSPITAL COURSE Hospital Course: He was admitted to the ICU for subarachnoid hemorrhage and atrial flutter with rapid ventricular response. Neurosurgery at [facility] was contacted in the emergency department who felt that he did not need transfer for his subarachnoid hemorrhage given the lack of aneurysm or AVM on imaging. Repeat CT head was recommended and was obtained the following day which showed stable hemorrhage. He was started on a diltiazem drip initially for the atrial flutter with rapid ventricular response and was also started on oral metoprolol. He was able to be transitioned off of the diltiazem. Echocardiogram was obtained which showed an ejection fraction of 50 to 55% and mild right ventricular enlargement as well as mildly impaired right ventricular systolic function. He had moderately abnormal right heart pressures and the RVSP at rest is 52 mmHg. There was no evidence of significant valvular disease. After his wean off the diltiazem drip, he became tachycardic again and so he was on oral diltiazem in addition to metoprolol. It was unclear if his episodic confusion was secondary to this hemorrhage or his dementia with behavioral disturbance which had been present at home. He continued to have episodes of behavioral disturbance during his hospitalization and so he was given Haldol as needed as well as Zyprexa. On hospital day 4, it was noted that his speech has become more slurred and so a repeat CT of the head was obtained which showed no evidence of stroke and that the hemorrhage was stable. The following day, the patient became more somnolent. His had arrived at bedside and she felt as if he had a facial droop however his dentures were not in place. He was evaluated by the provider and the patient was moving all 4 extremities spontaneously but was quite lethargic and would fall asleep quickly. He did respond to sternal rub but once again just briefly. A repeat CT of the head was obtained which once again showed a stable hemorrhage and no evidence of stroke. It was felt that his encephalopathy was related to the Haldol and has a pain and so these were discontinued. He was transferred to the ICU for closer monitoring. Unfortunately, MRI of the brain was not obtained as the patient reportedly had implants and his upper eyelids. Lumbar puncture was not pursued as he had been afebrile with no evidence of nuchal rigidity. Palliative care was consulted as the patient is followed by them on an outpatient basis for his inclusion body myositis and dementia with behavioral disturbances. Palliative care met with the on hospital day 6 given his decline, she felt that comfort measures would be within the patient's wishes. He already had a POLST form which stated he was a DNR with limited interventions. The patient was made comfort measures only and hospice was consulted. All of his medications were discontinued except for the Keppra to ensure that he did not have a seizure. He was started on morphine as well as Ativan as needed. After discussion with hospice and social work as well as the family, the plan was to discharge the patient home on hospice. Fortunately, his discharge was delayed as the patient's did not feel comfortable taking the patient home alone and her daughter would not arrive until the . There was also delay in delivery of the DME. This was eventually arranged on the evening of the but by this time, it appeared the patient was imminently dying and so he remained in the hospital overnight. The patient on January 30 at 5:13 AM. The patient's , Marianne, was present at bedside with her daughter. - ALLERGIES Allergies/Adverse Reactions: Allergies Allergy/AdvReac Type Severity Reaction Status Date / Time carbamazepine AdvReac Unknown Verified 01/20/20 14:14 iodine AdvReac Unknown Verified 01/20/20 14:14 shellfish derived AdvReac Unknown Verified 01/20/20 14:14 - MEDICATIONS Home Medications: Ambulatory Orders Medication Instructions Recorded Confirmed Levothyroxine [Synthroid] 75 mcg PO DAILY 08/20/15 01/21/20 Nitroglycerin [Nitrostat] 0.4 mg [id number] TITR PRN 07/18/16 01/21/20 Atorvastatin [Lipitor] 10 mg PO QPM 09/11/19 01/21/20 Calcium Carbonate [Calcium] 600 mg PO BID 09/11/19 01/21/20 Fluticasone Propion/Salmeterol 1 puffs IN BID 09/11/19 01/21/20 [Wixela 100-50 Inhub] Metoprolol Succinate 50 mg PO BID 12/14/19 01/21/20 Levetiracetam [Keppra] 1,000 mg PO BID 12/17/19 01/21/20 Mirtazapine 7.5 mg PO QPM 01/11/20 01/21/20 Atropine 1% Ophth Drops [Isopto 1 - 4 drops SL Q2H PRN bottle 01/30/20 Atropine 1% Ophth Drops] Carboxymethylcellulose 1% Opht 1 drops EACHEYE QID PRN drops 01/30/20 [Refresh 1% Ophth Drops] Glycopyrrolate [Robinul] 0.2 mg SUBQ Q4H PRN vial 01/30/20 LORazepam [Ativan] 0.5 mg PO Q6H PRN tablet 01/30/20 LORazepam [Ativan] 0.5 mg SL Q4H PRN tablet 01/30/20 Morphine Oral Soln [Roxanol] 10 mg PO Q1H PRN syringe 01/30/20 Scopolamine Patch [Transderm-Scop] 1 patch TOP Q3D patch 01/30/20 levETIRAcetam [Keppra] 1,000 mg PO BID udc 01/30/20 - PHYSICAL EXAM AT DISCHARGE Eyes Bilateral: positive: Other (Pupils fixed and dilated.) Respiratory: positive: Other (No spontaneous respirations.) Cardiovascular: positive: Other (No heart sounds present.) Peripheral Pulses: positive: 0 - LABS Result Diagrams: 01/24/20 10:20 01/25/20 05:15 - SEPSIS Current Stage of Sepsis: Ruled out"
--- NOTE | 2020-01-31 05:28 | Discharge Plan ---
Discharge Plan Problem Reviewed?: Yes Disposition: 20 No Smoking: If you smoke, Please STOP! Call for help. Follow-up with: Estelita Campos PA-C [Primary Care Provider] -
== END 2020-01-31 05:13 | disposition expired | DRG 85 ==
LOC: EDUNIT# → ED 13:56 → ICU 18:18 → MS2 01-25 17:23
PROVIDERS: ADMIT Internal Medicine; ATTEND Internal Medicine
DX: I60.9 Nontraumatic subarachnoid hemorrhage, unspecified (principal); S06.6X0A Traumatic subarachnoid hemorrhage without loss of consciousness, initial encounter; R42 Dizziness and giddiness; R41.0 Disorientation, unspecified; G92 Toxic encephalopathy; E43 Unspecified severe protein-calorie malnutrition; I48.92 Unspecified atrial flutter; Z68.1 Body mass index [BMI] 19.9 or less, adult; F01.51 Vascular dementia, unspecified severity, with behavioral disturbance; F05 Delirium due to known physiological condition; R27.8 Other lack of coordination; W19.XXXA Unspecified fall, initial encounter; Y92.009 Unspecified place in unspecified non-institutional (private) residence as the place of occurrence of the external cause; G72.41 Inclusion body myositis [IBM]; R41.9 Unspecified symptoms and signs involving cognitive functions and awareness; J44.9 Chronic obstructive pulmonary disease, unspecified; G40.909 Epilepsy, unspecified, not intractable, without status epilepticus; I10 Essential (primary) hypertension; I25.10 Atherosclerotic heart disease of native coronary artery without angina pectoris; E78.5 Hyperlipidemia, unspecified; I65.23 Occlusion and stenosis of bilateral carotid arteries; E03.9 Hypothyroidism, unspecified; T43.4X5A Adverse effect of butyrophenone and thiothixene neuroleptics, initial encounter; Y92.230 Patient room in hospital as the place of occurrence of the external cause; R62.7 Adult failure to thrive; F50.89 Other specified eating disorder; R33.9 Retention of urine, unspecified; D64.9 Anemia, unspecified; Z74.09 Other reduced mobility; E87.6 Hypokalemia; I69.398 Other sequelae of cerebral infarction; G93.89 Other specified disorders of brain; E86.0 Dehydration; H91.90 Unspecified hearing loss, unspecified ear; Z51.5 Encounter for palliative care; Z66 Do not resuscitate; Z20.828 Contact with and (suspected) exposure to other viral communicable diseases; Z74.2 Need for assistance at home and no other household member able to render care; Z91.81 History of falling; Z78.1 Physical restraint status; Z95.5 Presence of coronary angioplasty implant and graft; Z79.51 Long term (current) use of inhaled steroids; Z79.82 Long term (current) use of aspirin; Z79.899 Other long term (current) drug therapy; I25.2 Old myocardial infarction; Z95.828 Presence of other vascular implants and grafts; Z87.01 Personal history of pneumonia (recurrent); Z87.891 Personal history of nicotine dependence; Z86.011 Personal history of benign neoplasm of the brain; Z96.653 Presence of artificial knee joint, bilateral
CPT/HCPCS: 36415; 70450; 70496; 71045; 80048; 80053; 82310; 82607; 82746; 83540; 83690; 83735; 83880; 84100; 84132; 84443; 84466; 84484; 85025; 87150; 92610; 93005; 93306; 94640; 96361; 96374; 96375; 97116; 97161; 97530; 99233; 99284; 99285; A9270; J1200; J2060; J3490; J7626; Q9967; U0004; 80320